=== PATIENT | male | born 1950 | race Caucasian/White ===

== ENCOUNTER 2024-09-05 16:14 | Observation (INO) | payer MEDICARE ==
--- NOTE | 2024-09-05 16:47 | ED ---
Syncope HPI - General Chief Complaint: Neuro Symptoms/Deficit Stated Complaint: chest pain Time Seen by Provider: 09/05/24 16:34 Source: patient, family, RN notes reviewed, old records reviewed Mode of arrival: ambulatory Limitations: no limitations - History of Present Illness Initial Comments: This is a 74-year-old male to the ER for evaluation of chest pain chest pain with a syncopal event. Patient has a syncopal event here in the ER as well as in the waiting room, patient is brought in by family complaining of chest pain, long complex history including multiple episodes of syncope for about 20 years MD Complaint: loss of consciousness -: hour(s) Prodromal Symptoms: chest pain -: minutes(s) Injuries Sustained Associated with Event: None Current Symptoms: lightheaded History: previous syncopal episode Context: at rest Treatments Prior to Arrival: none - Related Data Home Medications Medication Instructions Recorded Confirmed Cholecalciferol [Vitamin D3 (25 50 mcg PO DAILY 09/05/24 09/05/24 Mcg = 1000 Iu)] Cyclobenzaprine [Flexeril] 10 mg PO Q8H PRN 09/05/24 09/05/24 DULoxetine HCL [Cymbalta] 60 mg PO BID 09/05/24 09/05/24 Eszopiclone [Lunesta] 2 mg PO HS PRN 09/05/24 09/05/24 Lactose-Reduced Food [Ensure Plus 237 ml PO DAILY 09/05/24 09/05/24 High Protein] Pantoprazole Sodium [Protonix] 20 mg PO DAILY 09/05/24 09/05/24 Pramipexole [Mirapex] 1 mg PO BID 09/05/24 09/05/24 Prednisolone Acetate/Pf 1 drop BOTH EYES TID 09/05/24 09/05/24 [Prednisolone Acet 1% Eye Drop] Pregabalin [Lyrica] 150 mg PO BID 09/05/24 09/05/24 Rivaroxaban [Xarelto] 20 mg PO DIRECTED 09/05/24 09/05/24 Solifenacin Succinate [Vesicare] 10 mg PO DAILY 09/05/24 09/05/24 clonazePAM [KlonoPIN] 1 mg PO DAILY PRN 09/05/24 09/05/24 traZODone HCL [Desyrel] 50 mg PO HS PRN 09/05/24 09/05/24 Previous Rx's Medication Instructions Recorded Losartan [Cozaar] 25 mg PO HS 30 Days #30 tab 09/07/24 Allergies Allergy/AdvReac Type Severity Reaction Status Date / Time NSAIDS (Non-Steroidal AdvReac Unknown Verified 09/05/24 18:05 Anti-Inflamma Review of Systems ROS Statement: Those systems with pertinent positive or pertinent negative responses have been documented in the HPI. ROS Other: All systems not noted in ROS Statement are negative. 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 Absent: scleral icterus, conjunctival injection, periorbital swelling ENT exam: Present: normal exam, mucous membranes moist Neck exam: Present: normal inspection. Absent: tenderness, meningismus, lymphadenopathy Respiratory exam: Present: normal lung sounds bilaterally. Absent: respiratory distress, wheezes, rales, rhonchi, stridor Cardiovascular Exam: Present: regular rate, normal rhythm, normal heart sounds. Absent: systolic murmur, diastolic murmur, rubs, gallop, clicks GI/Abdominal exam: Present: soft, normal bowel sounds. Absent: distended, tenderness, guarding, rebound, rigid Extremities exam: Present: normal inspection, full ROM, normal capillary refill. Absent: tenderness, pedal edema, joint swelling, calf tenderness Back exam: Present: normal inspection Neurological exam: Present: alert, oriented X3, CN II-XII intact Psychiatric exam: Present: normal affect, normal mood Skin exam: Present: warm, dry, intact, normal color. Absent: rash Course Vital Signs 09/05/24 09/05/24 09/05/24 16:22 18:35 20:09 Temperature 97.6 F 97.7 F Pulse Rate 87 74 76 Respiratory 18 18 16 Rate Blood Pressure 123/78 124/91 132/85 Blood Pressure [Right Arm Sitting] Blood Pressure [Right Arm Standing] Blood Pressure [Right Arm Supine] O2 Sat by Pulse 98 96 97 Oximetry 09/05/24 09/06/24 09/06/24 22:00 00:00 04:35 Temperature 98.0 F Pulse Rate 68 69 63 Respiratory 16 17 15 Rate Blood Pressure 132/76 127/74 132/78 Blood Pressure [Right Arm Sitting] Blood Pressure [Right Arm Standing] Blood Pressure [Right Arm Supine] O2 Sat by Pulse 95 95 95 Oximetry 09/06/24 09/06/24 09/06/24 06:42 07:48 15:43 Temperature 97.8 F Pulse Rate 75 73 Respiratory 15 16 Rate Blood Pressure 132/77 136/86 Blood Pressure 131/88 [Right Arm Sitting] Blood Pressure 138/99 [Right Arm Standing] Blood Pressure 177/106 [Right Arm Supine] O2 Sat by Pulse 95 95 Oximetry - Reevaluation(s) Reevaluation #1: 09/05/24 17:36 Medical records reviewed Reevaluation #2: 09/05/24 17:36 Patient is still having persistent chest pain here in the ER Reevaluation #3: 09/05/24 17:36 Patient informed of results questions answered Reevaluation #4: Was pt. sent in by a medical professional or institution (, PA, HOME FIRE ALARM INSTALLER, urgent care, hospital, or [place] [facility] [place] facility...) When possible be specific @ -no Did you speak to anyone other than the patient for history (EMS, parent, family, police, friend...)? What history was obtained from this source @ -no Did you review nursing and triage notes (agree or disagree)? Why? @ -agree Are old charts reviewed (outside hosp., previous admission, EMS record, old EKG, old radiological studies, urgent care reports/EKG's, [place] health [facility] facility records)? Report findings @ -yes Differential Diagnosis (chest pain, altered mental status, abdominal pain women, abdominal pain men, vaginal bleeding, weakness, fever, dyspnea, syncope, headache, dizziness, GI bleed, back pain, seizure, CVA, palpatations, mental health, musculoskeletal)? @ -prior EKG interpreted by me (3pts min.). @ -yes X-rays interpreted by me (1pt min.). @ -yes negative for acute disease CT interpreted by me (1pt min.). @ -no U/S interpreted by me (1pt. min.). @ -no What testing was considered but not performed or refused? (CT, X-rays, U/S, labs)? Why? @ -none What meds were considered but not given or refused? Why? @ -none Did you discuss the management of the patient with other professionals (prof norwood i.e. , PA, HOME FIRE ALARM INSTALLER, lab, RT, psych nurse, social work instructor, suggestion clerk, teacher, civil preparedness officer, case assistant)? Give summary @ -no Was smoking cessation discussed for >3mins.? @ -no Was critical care preformed (if so, how long)? @ -yes31 Were there social determinants of health that impacted care today? How? (Homelessness, low income, unemployed, alcoholism, drug addiction, transportation, low edu. Level, literacy, decrease access to med. care, [facility], rehab)? @ -none Was there de-escalation of care discussed even if they declined (Discuss DNR or withdrawal of care, Hospice)? DNR status @ -no What co-morbidities impacted this encounter? (DM, HTN, Smoking, COPD, CAD, Cancer, CVA, ARF, Chemo, Hep., AIDS, mental health diagnosis, sleep apnea, morbid obesity)? @ -none Was patient admitted / discharged? Hospital course, mention meds given and route, prescriptions, significant lab abnormalities, going to OR and other pertinent info. @ - 74 male to ER for evaluation of syncope complaining of chest pain. Recurrent syncopal event here in the ER x 2 once in the waiting room once in his own room, at this time patient will be admitted for further evaluation and monitoring by cardiology Admitted Undiagnosed new problem with uncertain prognosis? @ -no Drug Therapy requiring intensive monitoring for toxicity (Heparin, Nitro, Insulin, Cardizem)? @ -no Were any procedures done? @ -no Diagnosis/symptom? @ -Chest pain Acute, or Chronic, or Acute on Chronic? @ -Acute Uncomplicated (without systemic symptoms) or Complicated (systemic symptoms)? @ -Complicated Side effects of treatment? @ -no Exacerbation, Progression, or Severe Exacerbation? @ -exacerbation Poses a threat to life extremes of age with chest pain or bodily function? How? (Chest pain, [place], AR, pneumonia, PE, COPD, DKA, ARF, appy, cholecystitis, CVA, Diverticulitis, Homicidal, Suicidal, threat to staff... and all critical care pts) @ -yes Reevaluation #5: Differential Chest Pain: Stable Angina, Unstable Angina, STEMI, NSTEMI Aortic Dissection, Pneumothorax, Musculoskeletal, Esophageal Spasm GERD, Cholecystitis, Pancreatitis, Zoster, this is not meant to be an all-inclusive list. Differential Syncope: Valvular disease, hypertrophic cardiomyopathy, pulmonary embolism, tamponade, tachycardia, bradycardia, AR, hypovolemia, hemorrhage, dissection, anemia, intracranial hemorrhage, seizure, hypoglycemia, carbon monoxide poisoning, this is not meant to be an all-inclusive list. - Consultations Consultation #1: Spoke with [facility] who agrees to admit this patient EKG Findings - EKG Comments: EKG Findings:: EKG is sinus 77 [place] 149 QRS 114 QTc 398 - EKG Results: EKG: interpreted by [facility] Medical Decision Making - Medical Decision Making 74 male to ER for evaluation of syncope complaining of chest pain. Recurrent syncopal event here in the ER x 2 once in the waiting room once in his own room, at this time patient will be admitted for further evaluation and monitoring by cardiology - Lab Data Result diagrams: 09/06/24 05:23 09/07/24 05:19 Lab Results 09/05/24 09/05/24 09/05/24 Range/Units 16:56 16:56 16:56 WBC 7.8 (3.8-10.6) k/uL RBC 4.23 L (4.30-5.90) m/uL Hgb 10.7 L (13.0-17.5) gm/dL Hct 34.0 L (39.0-53.0) % MCV 80.4 (80.0-100.0) fL MCH 25.3 (25.0-35.0) pg MCHC 31.5 (31.0-37.0) g/dL RDW 15.7 H (11.5-15.5) % Plt Count 222 (150-450) k/uL MPV 8.5 Neutrophils % 69 % Lymphocytes % 20 % Monocytes % 6 % Eosinophils % 2 % Basophils % 0 % Neutrophils # 5.3 (1.3-7.7) k/uL Lymphocytes # 1.6 (1.0-4.8) k/uL Monocytes # 0.5 (0-1.0) k/uL Eosinophils # 0.1 (0-0.7) k/uL Basophils # 0.0 (0-0.2) k/uL Hypochromasia Moderate PT 11.1 (10.0-12.5) sec INR 1.0 (<1.2) APTT 23.6 (22.0-30.0) sec D-Dimer 0.53 (<0.60) mg/L FEU Sodium 138 (137-145) mmol/L Potassium 4.5 (3.5-5.1) mmol/L Chloride 109 H (98-107) mmol/L Carbon Dioxide 23 (22-30) mmol/L Anion Gap 6 mmol/L BUN 11 (9-20) mg/dL Creatinine 0.74 (0.66-1.25) mg/dL Est GFR (CKD-EPI)AfAm >90 (>60 ml/min/1.73 sqM) Est GFR (CKD-EPI)NonAf >90 (>60 ml/min/1.73 sqM) Glucose 108 H (74-99) mg/dL Plasma Lactic Acid Joshua (0.7-2.0) mmol/L Calcium 8.6 (8.4-10.2) mg/dL Phosphorus 3.8 (2.5-4.5) mg/dL Magnesium 1.6 (1.6-2.3) mg/dL Total Bilirubin 0.7 (0.2-1.3) mg/dL AST 25 (17-59) U/L ALT 22 (4-49) U/L Alkaline Phosphatase 106 (38-126) U/L Troponin I (0.000-0.034) ng/mL NT-Pro-B Natriuret Pep 98 pg/mL Total Protein 6.9 (6.3-8.2) g/dL Albumin 3.9 (3.5-5.0) g/dL 09/05/24 09/05/24 Range/Units 16:56 16:56 WBC (3.8-10.6) k/uL RBC (4.30-5.90) m/uL Hgb (13.0-17.5) gm/dL Hct (39.0-53.0) % MCV (80.0-100.0) fL MCH (25.0-35.0) pg MCHC (31.0-37.0) g/dL RDW (11.5-15.5) % Plt Count (150-450) k/uL MPV Neutrophils % % Lymphocytes % % Monocytes % % Eosinophils % % Basophils % % Neutrophils # (1.3-7.7) k/uL Lymphocytes # (1.0-4.8) k/uL Monocytes # (0-1.0) k/uL Eosinophils # (0-0.7) k/uL Basophils # (0-0.2) k/uL Hypochromasia PT (10.0-12.5) sec INR (<1.2) APTT (22.0-30.0) sec D-Dimer (<0.60) mg/L FEU Sodium (137-145) mmol/L Potassium (3.5-5.1) mmol/L Chloride (98-107) mmol/L Carbon Dioxide (22-30) mmol/L Anion Gap mmol/L BUN (9-20) mg/dL Creatinine (0.66-1.25) mg/dL Est GFR (CKD-EPI)AfAm (>60 ml/min/1.73 sqM) Est GFR (CKD-EPI)NonAf (>60 ml/min/1.73 sqM) Glucose (74-99) mg/dL Plasma Lactic Acid Joshua 1.1 (0.7-2.0) mmol/L Calcium (8.4-10.2) mg/dL Phosphorus (2.5-4.5) mg/dL Magnesium (1.6-2.3) mg/dL Total Bilirubin (0.2-1.3) mg/dL AST (17-59) U/L ALT (4-49) U/L Alkaline Phosphatase (38-126) U/L Troponin I <0.012 (0.000-0.034) ng/mL NT-Pro-B Natriuret Pep pg/mL Total Protein (6.3-8.2) g/dL Albumin (3.5-5.0) g/dL - EKG Data -: EKG Interpreted by Me - Radiology Data Radiology results: report reviewed (Chest x-ray is negative for acute disease), image reviewed Critical Care Time Critical Care Time: Yes Total Critical Care Time: 31 Disposition Clinical Impression: Chest pain, Syncope Disposition: ADMITTED IP TO THIS [facility] Condition: Fair Is patient prescribed a controlled substance at d/c from ED?: No Time of Disposition: 17:35
[2024-09-05 17:05] LABS: Basophils % (A) 0 %; Eosinophils # (A) 0.1 k/uL (0-0.7); Eosinophils % (A) 2 %; HGB 10.7 gm/dL (13.0-17.5); Hypochromasia Moderate; Lymphocytes # (A) 1.6 k/uL (1.0-4.8); Lymphocytes % (A) 20 %; MCH 25.3 pg (25.0-35.0); MCHC 31.5 g/dL (31.0-37.0); MCV 80.4 fL (80.0-100.0); Mean Platelet Volume 8.5; Monocytes # (A) 0.5 k/uL (0-1.0); Monocytes % (A) 6 %; Neutrophils # (A) 5.3 k/uL (1.3-7.7); Neutrophils % (A) 69 %; Platelet Count 222 k/uL (150-450); RBC 4.23 m/uL (4.30-5.90); RDW 15.7 % (11.5-15.5); WBC 7.8 k/uL (3.8-10.6)
[2024-09-05] MEDS: MORPHINE SULFATE 4 MG/ML SYRINGE IV STA (17:07)
[2024-09-05] MEDS: ONDANSETRON 4 MG/2 ML VIAL IVP STA (17:08)
[2024-09-05] MEDS: SODIUM CHLORIDE 0.9% 1,000 ML IV STA (17:08)
--- NOTE | 2024-09-05 17:19 | XR ---
EXAMINATION TYPE: XR chest 1V portable DATE OF EXAM: 09/05/2024 Comparison: None Clinical History: 74-year-old male with chest pain Findings: Heart is upper limits of normal in size. Mild diffuse interstitial density. Left anterior chest wall pacer generator with right atrial and ventricular leads. No consolidation or pleural effusion. Impression: Borderline heart size and interstitial density. Consider etiologies such as mild pulmonary vascular c ongestion versus bronchitis or asthma. [facility], , 09/05/2024 5:16 PM
[2024-09-05 17:23] LABS: Partial Thromboplastin Time 23.6 sec (22.0-30.0); Prothrombin Time 11.1 sec (10.0-12.5)
[2024-09-05 17:28] LABS: ALT 22 U/L (4-49); AST 25 U/L (17-59); African American GFR (CKD) >90 (>60 ml/min/1.73 sqM); Albumin 3.9 g/dL (3.5-5.0); Alkaline Phosphatase 106 U/L (38-126); Anion Gap 6 mmol/L; Blood Urea Nitrogen 11 mg/dL (9-20); Calcium 8.6 mg/dL (8.4-10.2); Carbon Dioxide 23 mmol/L (22-30); Chloride 109 mmol/L (98-107); Glucose 108 mg/dL (74-99); Magnesium 1.6 mg/dL (1.6-2.3); Non-African American GFR(CKD) >90 (>60 ml/min/1.73 sqM); Phosphorus 3.8 mg/dL (2.5-4.5); Potassium 4.5 mmol/L (3.5-5.1); Sodium 138 mmol/L (137-145); Total Bilirubin 0.7 mg/dL (0.2-1.3); Total Protein 6.9 g/dL (6.3-8.2)
[2024-09-05 17:34] LABS: NT-Pro-B-Type Natriuretic Pept 98 pg/mL
[2024-09-05] MEDS ORDERED: NALOXONE 0.4 MG/ML 1 ML VIAL IV PRN (17:34)
[2024-09-05] MEDS ORDERED: ONDANSETRON 4 MG/2 ML VIAL IVP PRN (17:34)
[2024-09-05] MEDS: SODIUM CHLORIDE 0.9% 1,000 ML IV SCH (18:31)
[2024-09-05] MEDS: MORPHINE SULFATE 4 MG/ML SYRINGE IV PRN (20:58)
[2024-09-06] MEDS ORDERED: traZODone HCL 50 MG TAB PO PRN (08:13)
[2024-09-06] MEDS ORDERED: HYDROcodone/APAP 5-325MG 1 EACH TAB PO PRN (08:21)
--- NOTE | 2024-09-06 08:45 | P.HPIM ---
History of Present Illness H&P Date: 09/05/24 Chief Complaint: Chest pain 74-year-old male to the ER for evaluation of chest pain chest pain with a syncopal event. Patient has a syncopal event here in the ER as well as in the waiting room, patient is brought in by family complaining of chest pain, long complex history including multiple episodes of syncope for about 20 years; patient is a vague historian; reports he has been having chest pain for past few days; today he had a couple episodes of syncope associated with chest pain and was convinced by the family to come to the ER for further evaluation Recurrent syncopal event here in the ER x 2 once in the waiting room once in his own room, at this time patient will be admitted for further evaluation and monitoring by cardiology Blood work completed in ED reveals a WBC of 7.8, hemoglobin of 10.7 and platelet count of 222, sodium 138, potassium 4.5, BUNs/creatinine of 11/0.74 and blood glucose of 108, lactic acid of 1.1 Chest x-ray is showing mild pulmonary vascular congestion versus bronchitis or asthma. Borderline heart size and interstitial density EKG Findings:: EKG is sinus 77 [place] 149 QRS 114 QTc 398 Review of Systems REVIEW OF SYSTEMS: CONSTITUTIONAL: No fever, no malaise, no fatigue. HEENT: No recent visual problems or hearing problems. Denied any sore throat. CARDIOVASCULAR: No chest pain, orthopnea, PND, no palpitations, no syncope. PULMONARY: No shortness of breath, no cough, no hemoptysis. GASTROINTESTINAL: No diarrhea, no nausea, no vomiting, no abdominal pain. NEUROLOGICAL: No headaches, no weakness, no numbness. HEMATOLOGICAL: Denies any bleeding or petechiae. GENITOURINARY: Denies any burning micturition, frequency, or urgency. MUSCULOSKELETAL/RHEUMATOLOGICAL: Denies any joint pain, swelling, or any muscle pain. ENDOCRINE: Denies any polyuria or polydipsia. The rest of the 14-point review of systems is negative. 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 Past Surgical History: Pacemaker Smoking Status: Never smoker Past Alcohol Use History: None Reported Past Drug Use History: None Reported Medications and Allergies Home Medications Medication Instructions Recorded Confirmed Type Cholecalciferol [Vitamin D3 (25 50 mcg PO DAILY 09/05/24 09/05/24 History Mcg = 1000 Iu)] Cyclobenzaprine [Flexeril] 10 mg PO Q8H PRN 09/05/24 09/05/24 History DULoxetine HCL [Cymbalta] 60 mg PO BID 09/05/24 09/05/24 History Eszopiclone [Lunesta] 2 mg PO HS PRN 09/05/24 09/05/24 History Lactose-Reduced Food [Ensure Plus 237 ml PO DAILY 09/05/24 09/05/24 History High Protein] Pantoprazole Sodium [Protonix] 20 mg PO DAILY 09/05/24 09/05/24 History Pramipexole [Mirapex] 1 mg PO BID 09/05/24 09/05/24 History Prednisolone Acetate/Pf 1 drop BOTH EYES TID 09/05/24 09/05/24 History [Prednisolone Acet 1% Eye Drop] Pregabalin [Lyrica] 150 mg PO BID 09/05/24 09/05/24 History Rivaroxaban [Xarelto] 20 mg PO DIRECTED 09/05/24 09/05/24 History Solifenacin Succinate [Vesicare] 10 mg PO DAILY 09/05/24 09/05/24 History clonazePAM [KlonoPIN] 1 mg PO DAILY PRN 09/05/24 09/05/24 History traZODone HCL [Desyrel] 50 mg PO HS PRN 09/05/24 09/05/24 History Allergies Allergy/AdvReac Type Severity Reaction Status Date / Time NSAIDS (Non-Steroidal AdvReac Unknown Verified 09/05/24 18:05 Anti-Inflamma Physical Exam Vitals: Vital Signs Temp Pulse Resp BP Pulse Ox 09/05/24 18:35 74 18 124/91 96 09/05/24 16:22 97.6 F 87 18 123/78 98 Intake and Output 09/05/24 09/05/24 09/05/24 06:59 14:59 22:59 Other: Weight 72.575 kg General appearance: alert, in no apparent distress Head exam: Present: atraumatic, normocephalic, normal inspection Eye exam: Present: normal appearance, PERRL, EOMI. Absent: scleral icterus, conjunctival injection, periorbital swelling ENT exam: Present: normal exam, mucous membranes moist Neck exam: Present: normal inspection. Absent: tenderness, meningismus, lymphadenopathy Respiratory exam: Present: normal lung sounds bilaterally. Absent: respiratory distress, wheezes, rales, rhonchi, stridor Cardiovascular Exam: Present: regular rate, normal rhythm, normal heart sounds. Absent: systolic murmur, diastolic murmur, rubs, gallop, clicks GI/Abdominal exam: Present: soft, normal bowel sounds. Absent: distended, tenderness, guarding, rebound, rigid Extremities exam: Present: normal inspection, full ROM, normal capillary refill. Absent: tenderness, pedal edema, joint swelling, calf tenderness Back exam: Present: normal inspection Neurological exam: Present: alert, oriented X3, CN II-XII intact Psychiatric exam: Present: normal affect, normal mood Skin exam: Present: warm, dry, intact, normal color. Absent: rash Results CBC & Chem 7: 09/05/24 16:56 09/05/24 16:56 Labs: Abnormal Lab Results - Last 24 Hours (Table) 09/05/24 09/05/24 Range/Units 16:56 16:56 RBC 4.23 L (4.30-5.90) m/uL Hgb 10.7 L (13.0-17.5) gm/dL Hct 34.0 L (39.0-53.0) % RDW 15.7 H (11.5-15.5) % Chloride 109 H (98-107) mmol/L Glucose 108 H (74-99) mg/dL Assessment and Plan Assessment: 1. Chest pain rule out acute coronary syndrome -- Patient reports history of chest pain for past few weeks; patient is rather vague in history; reports chest pains are becoming more frequent and day of ad mission were associated with episodes of syncope so patient decided to come to ER -Patient is admitted to telemetry; monitor EKG and trend troponin -- Recommend 2D echo; cardiology is consulted; get recommendations 2. Recurrent syncope; chronic; reports syncopal episodes for past 20 years 3. Anemia; acute versus chronic; devious records are not available -- Patient is currently on Protonix 20 mg daily; will plan to resume and monitor H&H closely; monitor stool occult blood 4. 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 Chronic back pain; Cymbalta 60 mg twice daily along with Flexeril 10 mg every 8 hours as needed 6. Vitamin D deficiency; vitamin D 1000 IU daily 7. Peripheral neuropathy/restless leg syndrome; Lyrica 150 mg twice daily, Mirapex 1 mg twice daily 8. Urinary incontinence 9. Sleep disorder/insomnia; Desyrel 50 mg nightly; Lunesta as needed DVT prophylaxis; SCDs/Xarelto CODE STATUS; full code
[2024-09-06 09:21] LABS: Basophils # (A) 0.06 X 10*3/uL (0.00-0.10); Basophils % (A) 0.8 %; Eosinophils # (A) 0.19 X 10*3/uL (0.04-0.35); Eosinophils % (A) 2.6 %; HCT 32.2 % (39.6-50.0); HGB 9.5 g/dL (13.0-17.0); Lymphocytes # (A) 1.95 X 10*3/uL (0.90-5.00); Lymphocytes % (A) 26.9 %; MCH 24.1 pg (27.0-32.0); MCHC 29.5 g/dL (32.0-37.0); MCV 81.5 FL (80.0-97.0); Mean Platelet Volume 10.9 FL (9.5-12.2); Monocytes # (A) 0.75 X 10*3/uL (0.20-1.00); Monocytes % (A) 10.3 %; NRBC Per 100 WBC 0 X 10*3/uL (0.00-0.01); Neutrophils # (A) 4.28 X 10*3/uL (1.80-7.70); Neutrophils % (A) 59.1 %; Platelet Count 218 X 10*3/uL (140-440); RBC 3.95 X 10*6/uL (4.40-5.60); RDW 15.9 % (11.5-14.5); WBC 7.25 X 10*3/uL (4.50-10.00)
[2024-09-06 09:34] LABS: ALT 20 U/L (10-49); AST 23 U/L (14-35); Albumin 3.7 g/dL (3.8-4.9); Albumin/Globulin Ratio 1.42 Ratio (1.60-3.17); Alkaline Phosphatase 110 U/L (41-126); BUN/Creat Ratio 12.62 Ratio (12.00-20.00); Blood Urea Nitrogen 10.1 mg/dL (9.0-27.0); Calcium 8.4 mg/dL (8.7-10.3); Carbon Dioxide 24.4 mmol/L (21.6-31.8); Chloride 106 mmol/L (96-109); Globulin 2.6 g/dL (1.6-3.3); Glucose 104 mg/dL (70-110); Magnesium 1.7 mg/dL (1.5-2.4); Phosphorus 4.2 mg/dL (2.4-5.1); Potassium 4.5 mmol/L (3.5-5.5); Sodium 140 mmol/L (135-145); Total Bilirubin 0.5 mg/dL (0.3-1.2); Total Protein 6.3 g/dL (6.2-8.2)
[2024-09-06] MEDS: PREGABALIN 75 MG CAP PO SCH (09:51)
[2024-09-06] MEDS: PRAMIPEXOLE 1 MG TAB PO SCH (09:52)
[2024-09-06] MEDS: TROSPIUM CHLORIDE 20 MG TABLET PO SCH (09:52)
[2024-09-06] MEDS: PANTOPRAZOLE 40 MG TABLET PO SCH (09:52)
[2024-09-06] MEDS: LORATADINE 10 MG TAB PO STA (09:52)
[2024-09-06] MEDS: FAMOTIDINE 20 MG TAB PO STA (09:52)
[2024-09-06] MEDS: DULoxetine HCL 60 MG CAPSULE.DR PO SCH (09:52)
[2024-09-06] MEDS: RIVAROXABAN 20 MG TAB PO SCH (09:52)
[2024-09-06] MEDS: prednisoLONE ACETATE 1% OPHTH DROPS 5 ML BTL BOTH EYES SCH (13:40)
--- NOTE | 2024-09-06 14:38 | P.CRDCN ---
History of Present Illness Consult date: 09/06/24 Consult reason: chest pain History of present illness: The patient is a 74-year-old male who presented to the emergency room with chest discomfort. ACS workup overall was unremarkable. Patient was poor historian at time of arrival in the emergency room and they state he has been having recurrent syncope, which is chronic for the patient. This was witnessed in the emergency room. Patient was interviewed and examined resting comfortably. Patient states he had a coronary angiogram within the last year and he has no coronary artery disease. He also had his pacemaker implanted in [place], with a subsequent generator change. He follows with Dr. Alas at [facility]. DIAGNOSTICS: EKG initially showed sinus rhythm with IVCD Second EKG shows atrial paced rhythm Chest x-ray shows mild pulmonary vascular congestion versus bronchitis/asthma Lab data: WBC 7.2, hemoglobin 9.5, hematocrit 32.2, platelet 218, sodium 140, potassium 4.5, BUN 10, creatinine 0.8, magnesium 1.7, AST 23, ALT 20, troponins negative x 3, BNP 98 REVIEW OF SYSTEMS: No fever or chills. No cough or expectoration. No diaphoresis. Patient denies headache, dizziness, blurred vision, double vision. Patient denies any stomach discomfort. No nausea, vomiting. No hematochezia. No hematemesis. Denies any black stools or blood in his stools. Denies dysuria or hematuria. No muscle weakness or numbness. Positive for shortness of breath. Negative for any current chest pain PHYSICAL EXAMINATION: This is a 74-year-old male in no apparent distress at the time of my examination. HEENT: Head is atraumatic, normocephalic. Pupils are equal, round. There is no j ugular venous distention. No carotid bruit is heard. CHEST EXAMINATION: Lungs are clear to auscultation. No chest wall tenderness is noted on palpation or with deep breathing. HEART EXAMINATION: Heart regular rate and rhythm. S1, S2 heard. No murmurs, gallops or rub. ABDOMEN: Soft, nontender. Bowel sounds are heard. No organomegaly noted. EXTREMITIES: 2+ peripheral pulses with no evidence of peripheral edema and no calf tenderness noted. NEUROLOGIC EXAMINATION: Patient is awake, alert and oriented x3. FINAL ASSESSMENT AND PLAN: Chest discomfort Anemia Recurrent syncope History of permanent pacemaker History of factor V Leiden, on Xarelto PLAN: Continue anticoagulation Device interrogation Orthostatic blood pressure check Further recommendations to be based upon clinical course I am dictating on behalf of Dr Eduard Munoz's history/physical and assessment/plan. 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 Past Surgical History: Pacemaker Smoking Status: Never smoker Past Alcohol Use History: None Reported Past Drug Use History: None Reported Medications and Allergies Home Medications Medication Instructions Recorded Confirmed Type Cholecalciferol [Vitamin D3 (25 50 mcg PO DAILY 09/05/24 09/05/24 History Mcg = 1000 Iu)] Cyclobenzaprine [Flexeril] 10 mg PO Q8H PRN 09/05/24 09/05/24 History DULoxetine HCL [Cymbalta] 60 mg PO BID 09/05/24 09/05/24 History Eszopiclone [Lunesta] 2 mg PO HS PRN 09/05/24 09/05/24 History Lactose-Reduced Food [Ensure Plus 237 ml PO DAILY 09/05/24 09/05/24 History High Protein] Pantoprazole Sodium [Protonix] 20 mg PO DAILY 09/05/24 09/05/24 History Pramipexole [Mirapex] 1 mg PO BID 09/05/24 09/05/24 History Prednisolone Acetate/Pf 1 drop BOTH EYES TID 09/05/24 09/05/24 History [Prednisolone Acet 1% Eye Drop] Pregabalin [Lyrica] 150 mg PO BID 09/05/24 09/05/24 History Rivaroxaban [Xarelto] 20 mg PO DIRECTED 09/05/24 09/05/24 History Solifenacin Succinate [Vesicare] 10 mg PO DAILY 09/05/24 09/05/24 History clonazePAM [KlonoPIN] 1 mg PO DAILY PRN 09/05/24 09/05/24 History traZODone HCL [Desyrel] 50 mg PO HS PRN 09/05/24 09/05/24 History Allergies Allergy/AdvReac Type Severity Reaction Status Date / Time NSAIDS (Non-Steroidal AdvReac Unknown Verified 09/05/24 18:05 Anti-Inflamma Physical Exam Vitals: Vital Signs Temp Pulse Resp BP Pulse Ox 09/06/24 07:48 73 16 136/86 95 09/06/24 06:42 97.8 F 75 15 132/77 95 09/06/24 04:35 98.0 F 63 15 132/78 95 09/06/24 00:00 69 17 127/74 95 09/05/24 22:00 68 16 132/76 95 09/05/24 20:09 97.7 F 76 16 132/85 97 09/05/24 18:35 74 18 124/91 96 09/05/24 16:22 97.6 F 87 18 123/78 98 Intake and Output 09/05/24 09/06/24 09/06/24 22:59 06:59 14:59 Output Total 1000 Balance -1000 Output: Urine 1000 Other: Weight 72.575 kg Results 09/06/24 05:23 09/06/24 05:23 Cardiac Enzymes 09/05/24 09/05/24 09/05/24 Range/Units 16:56 16:56 20:24 AST 25 (17-59) U/L Troponin I <0.012 <0.012 (0.000-0.034) ng/mL 09/05/24 09/06/24 Range/Units 23:43 05:23 AST 23 (17-59) U/L Troponin I <0.012 (0.000-0.034) ng/mL Coagulation 09/05/24 Range/Units 16:56 PT 11.1 (10.0-12.5) sec APTT 23.6 (22.0-30.0) sec CBC 09/05/24 09/06/24 Range/Units 16:56 05:23 WBC 7.8 7.25 (3.8-10.6) k/uL RBC 4.23 L 3.95 L (4.30-5.90) m/uL Hgb 10.7 L 9.5 L (13.0-17.5) gm/dL Hct 34.0 L 32.2 L (39.0-53.0) % Plt Count 222 218 (150-450) k/uL Comprehensive Metabolic Panel 09/05/24 09/06/24 Range/Units 16:56 05:23 Sodium 138 140 (137-145) mmol/L Potassium 4.5 4.5 (3.5-5.1) mmol/L Chloride 109 H 106 (98-107) mmol/L Carbon Dioxide 23 24.4 (22-30) mmol/L BUN 11 10.1 (9-20) mg/dL Creatinine 0.74 0.8 (0.66-1.25) mg/dL Glucose 108 H 104 (74-99) mg/dL Calcium 8.6 8.4 L (8.4-10.2) mg/dL AST 25 23 (17-59) U/L ALT 22 20 (4-49) U/L Alkaline Phosphatase 106 110 (38-126) U/L Total Protein 6.9 6.3 (6.3-8.2) g/dL Albumin 3.9 3.7 L (3.5-5.0) g/dL Current Medications Generic Name Dose Route Start Last Admin Trade Name Freq PRN Reason Stop Dose Admin Hydrocodone Bitart/Acetaminophen 1 each 09/06/24 08:21 Hydrocodone/Apap 5-325mg 1 Each Tab PO Q6HR PRN Pain Diphenhydramine HCl 25 mg 09/06/24 08:58 Diphenhydramine 50 Mg/Ml 1 Ml Vial IVP Q6HR PRN Allergy Symptoms Duloxetine HCl 60 mg 09/06/24 09:00 09/06/24 09:52 Duloxetine Hcl 60 Mg Capsule.Dr PO 60 mg BID SALLY Administration Sodium Chloride 1,000 mls @ 75 mls/hr 09/05/24 17:45 09/06/24 07:46 Saline 0.9% IV 75 mls/hr .[id number] SALLY Administration Morphine Sulfate 4 mg 09/05/24 17:34 09/06/24 08:59 Morphine Sulfate 4 Mg/Ml Syringe IV 4 mg Q4HR PRN Administration Severe Pain (Scale 7 to 10) Naloxone HCl 0.2 mg 09/05/24 17:34 Naloxone 0.4 Mg/Ml 1 Ml Vial IV Q2M PRN Opioid Reversal Ondansetron HCl 4 mg 09/05/24 17:34 Ondansetron 4 Mg/2 Ml Vial IVP Q8HR PRN Nausea And Vomiting Pantoprazole Sodium 40 mg 09/06/24 09:00 09/06/24 09:52 Pantoprazole 40 Mg Tablet PO 40 mg DAILY SALLY Administration Pramipexole Dihydrochloride 1 mg 09/06/24 09:00 09/06/24 09:52 Pramipexole 1 Mg Tab PO 1 mg BID SALLY Administration Prednisolone Acetate 1 drops 09/06/24 09:00 09/06/24 13:40 Prednisolone Acetate 1% Ophth Drops 5 Ml Btl BOTH EYES 1 drops TID SALLY Administration Pregabalin 150 mg 09/06/24 09:00 09/06/24 09:51 Pregabalin 75 Mg Cap PO 150 mg BID SALLY Administration Rivaroxaban 20 mg 09/06/24 09:00 09/06/24 09:52 Rivaroxaban 20 Mg Tab PO 20 mg DAILY SALLY Administration Protocol Trazodone HCl 50 mg 09/06/24 08:13 Trazodone Hcl 50 Mg Tab PO HS PRN Insomnia Trospium 20 mg 09/06/24 09:00 09/06/24 09:52 Trospium Chloride 20 Mg Tablet PO 20 mg BID SALLY Administration Intake and Output 09/05/24 09/06/24 09/06/24 22:59 06:59 14:59 Output Total 1000 Balance -1000 Output: Urine 1000 Other: Weight 72.575 kg 09/06/24 05:23 09/06/24 05:23
[2024-09-06] MEDS: diphenhydrAMINE 50 MG/ML 1 ML VIAL IVP PRN (18:53)
[2024-09-06 20:08] LABS: Glucose,Whole Blood 86 mg/dL (70-110)
[2024-09-07 05:53] LABS: Glucose,Whole Blood 98 mg/dL (70-110)
[2024-09-07 08:13] VITALS: TEMP 97.9
--- NOTE | 2024-09-07 08:22 | P.EPCON ---
Electrophysiology Consult - EP Consult Electrophysiology Consult: Syncope/presyncope Supine hypertension with orthostatic drop in the morning/OHS Suggest Nighttime/bedtime dose of angiotensin receptor josee, losartan 25 mg p.o. daily to begin with Mitigate the a.m. drop in blood pressure once sitting and standing
[2024-09-07 09:31] LABS: BUN/Creat Ratio 10.57 Ratio (12.00-20.00); Blood Urea Nitrogen 7.4 mg/dL (9.0-27.0); Calcium 8.5 mg/dL (8.7-10.3); Chloride 105 mmol/L (96-109); Glucose 104 mg/dL (70-110); Potassium 4.4 mmol/L (3.5-5.5); Sodium 138 mmol/L (135-145)
--- NOTE | 2024-09-07 11:59 | P.PN ---
Subjective Progress Note Date: 09/07/24 This is Uday Blount NP, I'm dictating on behalf of Dr. Munoz's H&P and A&P. Patient was interviewed and examined. Patient is a pleasant 74-year-old male who presented to the hospital with complaints of chest pain and syncope. Patient reports that he is feeling okay today. He is denying chest pain, heart palpitations, dizziness. Patient does report that he continues to experience lightheadedness when he gets up out of bed. Orthostatic vital signs were checked yesterday and were positive. Patient was noted to be hypertensive this morning while lying in the bed. GENERAL: Well-appearing, well-nourished and in no acute distress. NECK: Supple without JVD or thyromegaly. LUNGS: Breath sounds clear to auscultation bilaterally. Respiration equal and unlabored. No wheezes, rales or rhonchi. HEART: Regular rate and rhythm without murmurs, rubs or gallops. S1 and S2 heard. EXTREMITIES: Normal range of motion, no edema. No clubbing or cyanosis. Peripheral pulses intact and strong. VITALS: Blood pressure 97.9, pulse 102, respirations 15, blood pressure 150/90, O2 saturation 97% on room air Orthostatic vitals: Supine-177/106, sitting- 131/88, standing-138/99 TELEMETRY: Sinus mechanism LABS: Sodium 138, potassium 4.4, BUN 7.4, creatinine 0.7, calcium 8.5 IMPRESSION: 1. Chest discomfort 2. Anemia 3. Recurrent syncope, positive orthostatic vital signs 4. History of permanent pacemaker 5. History of factor V Leiden, on Xarelto 6. Orthostatic hypotension syndrome 7. Supine hypertension PLAN: Start losartan 25 mg at bedtime. Only give this around bedtime, specifically to treat the supine hypertension, which will decrease the patient's orthostasis in the morning. Continue anticoagulation. Further recommendations based on patient's clinical course. Objective - Vital Signs Vital signs: Vital Signs Temp 97.9 F 09/07/24 07:00 Pulse 102 H 09/07/24 07:00 Resp 15 09/07/24 07:00 BP 150/90 09/07/24 07:00 Pulse Ox 97 09/07/24 07:00 FiO2 Intake & Output 09/06/24 09/07/2424 18:59 06:59 18:59 Weight 72.575 kg Other: # Voids 2 - Labs CBC & Chem 7: 09/06/24 05:23 09/07/24 05:19 Labs: Abnormal Lab Results - Last 24 Hours (Table) 09/07/24 Range/Units 05:19 BUN 7.4 L (9.0-27.0) mg/dL BUN/Creatinine Ratio 10.57 L (12.00-20.00) Ratio Calcium 8.5 L (8.7-10.3) mg/dL
[2024-09-07 12:24] LABS: Glucose,Whole Blood 123 mg/dL (70-110)
[2024-09-07 15:30] VITALS: BP 153/80; PULSE 83; RESP 16
--- NOTE | 2024-09-07 16:58 | P.PN ---
Subjective Progress Note Date: 09/06/24 74-year-old male to the ER for evaluation of chest pain chest pain with a syncopal event. Patient has a syncopal event here in the ER as well as in the waiting room, patient is brought in by family complaining of chest pain, long complex history including multiple episodes of syncope for about 20 years; patient is a vague historian; reports he has been having chest pain for past few days; today he had a couple episodes of syncope associated with chest pain and was convinced by the family to come to the ER for further evaluation Recurrent syncopal event here in the ER x 2 once in the waiting room once in his own room, at this time patient will be admitted for further evaluation and monitoring by cardiology Blood work completed in ED reveals a WBC of 7.8, hemoglobin of 10.7 and platelet count of 222, sodium 138, potassium 4.5, BUNs/creatinine of 11/0.74 and blood glucose of 108, lactic acid of 1.1 Chest x-ray is showing mild pulmonary vascular congestion versus bronchitis or asthma. Borderline heart size and interstitial density EKG Findings:: EKG is sinus 77 KS 149 QRS 114 QTc 398 Objective - Vital Signs Vital signs: Vital Signs Temp 97.8 F 09/06/24 06:42 Pulse 73 09/06/24 07:48 Resp 16 09/06/24 07:48 BP 136/86 09/06/24 07:48 Pulse Ox 95 09/06/24 07:48 FiO2 Intake & Output 09/05/24 09/06/24 09/06/24 18:59 06:59 18:59 Output Total 1000 Balance -1000 Weight 72.575 kg Output: Urine 1000 - Exam Head exam: Present: atraumatic, normocephalic, normal inspection Eye exam: Present: normal appearance, PERRL, EOMI. Absent: scleral icterus, conjunctival injection, periorbital swelling ENT exam: Present: normal exam, mucous membranes moist Neck exam: Present: normal inspection. Absent: tenderness, meningismus, lymphadenopathy Respiratory exam: Present: normal lung sounds bilaterally. Absent: respiratory distress, wheezes, rales, rhonchi, stridor Cardiovascular Exam: Present: regular rate, normal rhythm, normal heart sounds. Absent: systolic murmur, diastolic murmur, rubs, gallop, clicks GI/Abdominal exam: Present: soft, normal bowel sounds. Absent: distended, tenderness, guarding, rebound, rigid Extremities exam: Present: normal inspection, full ROM, normal capillary refill. Absent: tenderness, pedal edema, joint swelling, calf tenderness Back exam: Present: normal inspection Neurological exam: Present: alert, oriented X3, CN II-XII intact Psychiatric exam: Present: normal affect, normal mood Skin exam: Present: warm, dry, intact, normal color. Absent: rash - Labs CBC & Chem 7: 09/06/24 05:23 09/07/24 05:19 Labs: Abnormal Lab Results - Last 24 Hours (Table) 09/05/24 09/05/24 Range/Units 16:56 16:56 RBC 4.23 L (4.30-5.90) m/uL Hgb 10.7 L (13.0-17.5) gm/dL Hct 34.0 L (39.0-53.0) % RDW 15.7 H (11.5-15.5) % Chloride 109 H (98-107) mmol/L Glucose 108 H (74-99) mg/dL Assessment and Plan Assessment: 1. Chest pain rule out acute coronary syndrome -- Patient reports history of chest pain for past few weeks; patient is rather vague in history; reports chest pains are becoming more frequent and day of admission were associated with episodes of syncope so patient decided to come to ER -Patient is admitted to telemetry; monitor EKG and trend troponin -- Recommend 2D echo; cardiology is consulted; get recommendations 2. Recurrent syncope; chronic; reports syncopal episodes for past 20 years 3. Anemia; acute versus chronic; devious records are not available -- Patient is currently on Protonix 20 mg daily; will plan to resume and monitor H&H closely; monitor stool occult blood 4. 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 Chronic back pain; Cymbalta 60 mg twice daily along with Flexeril 10 mg every 8 hours as needed 6. Vitamin D deficiency; vitamin D 1000 IU daily 7. Peripheral neuropathy/restless leg syndrome; Lyrica 150 mg twice daily, Mirapex 1 mg twice daily 8. Urinary incontinence 9. Sleep disorder/insomnia; Desyrel 50 mg nightly; Lunesta as needed DVT prophylaxis; SCDs/Xarelto CODE STATUS; full code
[2024-09-07] MEDS ORDERED: LOSARTAN 25 MG TAB PO SCH (21:00)
== END 2024-09-07 17:30 | disposition home or self-care (01) ==
LOC: EC 16:14 → 6NMEDSUR 17:34
PROVIDERS: ADMIT Hospitalist; ATTEND Hospitalist
DX: R07.89 Other chest pain (principal); I95.1 Orthostatic hypotension; D64.9 Anemia, unspecified; I10 Essential (primary) hypertension; D68.51 Activated protein C resistance; U09.9 Post COVID-19 condition, unspecified; E55.9 Vitamin D deficiency, unspecified; G25.81 Restless legs syndrome; R32 Unspecified urinary incontinence; G47.00 Insomnia, unspecified; G62.9 Polyneuropathy, unspecified; Z79.01 Long term (current) use of anticoagulants; Z79.899 Other long term (current) drug therapy; Z88.6 Allergy status to analgesic agent; Z95.0 Presence of cardiac pacemaker
CPT/HCPCS: 96376 ×4; 96361 ×2; 96375 ×2; 96374; 99291; 36415; 93005; 85379; 83880; 80053 ×2; 80048; 83605; 83735 ×2; 84100 ×2; 84484; 85025 ×2; 85610; 85730; 71045; G0378 ×3; J2270 ×3; J1200 ×2; J2405

== ENCOUNTER 2024-09-30 23:15 | Emergency (ER) | payer MEDICARE ==
--- NOTE | 2024-10-01 | ED ---
Abdominal Pain HPI - General Chief Complaint: Abdominal Pain Stated Complaint: Abd Pain Time Seen by Provider: 09/30/24 23:58 Source: patient, family, RN notes reviewed Mode of arrival: wheelchair Limitations: no limitations - History of Present Illness Initial Comments: 74-year-old male presenting to the ER with chief complaint of urinary retention x 3 hours. Reports over the past day he is having dysuria and feels as though he cannot completely empty his bladder. He is also endorsing suprapubic pain and diffuse bodyaches. Denies fevers, nausea, vomiting. He is on Xarelto. - Related Data Home Medications Medication Instructions Recorded Confirmed Cholecalciferol [Vitamin D3 (25 50 mcg PO DAILY 09/05/24 09/05/24 Mcg = 1000 Iu)] Cyclobenzaprine [Flexeril] 10 mg PO Q8H PRN 09/05/24 09/05/24 DULoxetine HCL [Cymbalta] 60 mg PO BID 09/05/24 09/05/24 Eszopiclone [Lunesta] 2 mg PO HS PRN 09/05/24 09/05/24 Lactose-Reduced Food [Ensure Plus 237 ml PO DAILY 09/05/24 09/05/24 High Protein] Pantoprazole Sodium [Protonix] 20 mg PO DAILY 09/05/24 09/05/24 Pramipexole [Mirapex] 1 mg PO BID 09/05/24 09/05/24 Prednisolone Acetate/Pf 1 drop BOTH EYES TID 09/05/24 09/05/24 [Prednisolone Acet 1% Eye Drop] Pregabalin [Lyrica] 150 mg PO BID 09/05/24 09/05/24 Rivaroxaban [Xarelto] 20 mg PO DIRECTED 09/05/24 09/05/24 Solifenacin Succinate [Vesicare] 10 mg PO DAILY 09/05/24 09/05/24 clonazePAM [KlonoPIN] 1 mg PO DAILY PRN 09/05/24 09/05/24 traZODone HCL [Desyrel] 50 mg PO HS PRN 09/05/24 09/05/24 Previous Rx's Medication Instructions Recorded Losartan [Cozaar] 25 mg PO HS 30 Days #30 tab 09/07/24 Allergies Allergy/AdvReac Type Severity Reaction Status Date / Time NSAIDS (Non-Steroidal AdvReac Unknown Verified 09/30/24 23:20 Anti-Inflamma Review of Systems ROS Statement: Those systems with pertinent positive or pertinent negative responses have been documented in the HPI. ROS Other: All systems not noted in ROS Statement are negative. 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 bowel surgery twisted bowel post op bariatric sx. Past Anesthesia/Blood Transfusion Reactions: No Reported Reaction Type of Cardiac Device: Permanent Pacemaker Device Placement Date:: 2005 Past Psychological History: Anxiety, Depression Smoking Status: Never smoker Past Alcohol Use History: None Reported Past Drug Use History: None Reported - Past Family History Father Family Medical History: Unable to Obtain General Exam Limitations: no limitations General appearance: alert, anxious Eye exam: Present: normal appearance, PERRL, EOMI. Absent: scleral icterus, conjunctival injection, periorbital swelling GI/Abdominal exam: Present: soft, normal bowel sounds. Absent: distended, tenderness, guarding, rebound, rigid Neurological exam: Present: alert, oriented X3 Psychiatric exam: Present: normal affect, normal mood Skin exam: Present: warm, dry, intact, normal color. Absent: rash Course Vital Signs 09/30/24 10/01/24 23:16 01:13 Temperature 97.7 F 97.9 F Pulse Rate 77 74 Respiratory 20 19 Rate Blood Pressure 140/84 133/81 O2 Sat by Pulse 98 98 Oximetry Medical Decision Making - Medical Decision Making Was pt. sent in by a medical professional or institution (, PA, PHYSICAL THERAPY ASSISTANT INSTRUCTOR, urgent care, hospital, or shelter...) When possible be specific @ -No Did you speak to anyone other than the patient for history (EMS, parent, family, police, friend...)? What history was obtained from this source @ - supplemented history Did you review nursing and triage notes (agree or disagree)? Why? @ -I reviewed and agree with nursing and triage notes Were old charts reviewed (outside hosp., previous admission, EMS record, old EKG, old radiological studies, urgent care reports/EKG's, shelter records)? Report findings @ -No old charts were reviewed Differential Diagnosis (chest pain, altered mental status, abdominal pain women, abdominal pain men, vaginal bleeding, weakness, fever, dyspnea, syncope, headache, dizziness, GI bleed, back pain, seizure, CVA, palpatations, mental health, musculoskeletal)? @ -Differential Abdominal Pain Men: Urinary retention, appendicitis, cholecystitis, diverticulosis, ischemic bowel, pancreatitis, hepatitis, UTI, gastroenteritis, AAA, incarcerated hernia, bowel obstruction, constipation, inflammatory bowel, hepatitis, peptic ulcer disease, splenic infarction, perforated viscus, testicular torsion, this is not meant to be an all-inclusive list EKG interpreted by me (3pts min.). @ -None X-rays interpreted by me (1pt min.). @ -None done CT interpreted by me (1pt min.). @ -None done U/S interpreted by me (1pt. min.). @ -None done What testing was considered but not performed or refused? (CT, X-rays, U/S, labs)? Why? @ -None What meds were considered but not given or refused? Why? @ -None Did you discuss the management of the patient with other professionals (professionals i.e. , PA, PHYSICAL THERAPY ASSISTANT INSTRUCTOR, lab, RT, psych nurse, case management social worker, manager contracting, teacher, medical corps officer, registered nurse hh case manager)? Give summary @ -No Was smoking cessation discussed for >3mins.? @ -No Was critical care preformed (if so, how long)? @ -No Were there social determinants of health that impacted care today? How? (Homelessness, low income, unemployed, alcoholism, drug addiction, transportation, low edu. Level, literacy, decrease access to med. care, assisted, rehab)? @ -No Was there de-escalation of care discussed even if they declined (Discuss DNR or withdrawal of care, Hospice)? DNR status @ -No What co-morbidities impacted this encounter? (DM, HTN, Smoking, COPD, CAD, Cancer, CVA, ARF, Chemo, Hep., AIDS, mental health diagnosis, sleep apnea, morbid obesity)? @ -None Was patient admitted / discharged? Hospital course, mention meds given and route, prescriptions, significant lab abnormalities, going to OR and other pertinent info. @ -Discharge. This is a 74-year-old male presenting with urinary retention. Vital signs within acceptable limits. Abdomen is soft and nontender. Bladder scan reveals 673 mL. Marcelo catheter was placed and draining properly. Lab work including CBC, CMP, lactic acid unremarkable. Urinalysis reveals 1+ glucose, negative for blood or bacteria. Results discussed with patient. Advised to follow-up with urology for Marcelo removal. Appropriate return parameters discussed, patient and are agreeable to plan. Case was discussed with the ED attending Dr. Lino. Undiagnosed new problem with uncertain prognosis? @ -No Drug Therapy requiring intensive monitoring for toxicity (Heparin, Nitro, Insulin, Cardizem)? @ -No Were any procedures done? @ -No Diagnosis/symptom? @ -Urinary retention Acute, or Chronic, or Acute on Chronic? @ -Acute Uncomplicated (without systemic symptoms) or Complicated (systemic symptoms)? @ -Uncomplicated Side effects of treatment? @ -No Exacerbation, Progression, or Severe Exacerbation? @ -No Poses a threat to life or bodily function? How? (Chest pain, [place], [place], pneumonia, PE, COPD, DKA, ARF, appy, cholecystitis, CVA, Diverticulitis, Homicidal, Suicidal, threat to staff... and all critical care pts) @ -No - Lab Data Result diagrams: 10/01/24 00:04 10/01/24 00:04 Lab Results 10/01/24 10/01/24 10/01/24 Range/Units 00:04 00:04 00:04 WBC 6.8 (3.8-10.6) k/uL RBC 4.16 L (4.30-5.90) m/uL Hgb 10.4 L (13.0-17.5) gm/dL Hct 33.0 L (39.0-53.0) % MCV 79.2 L (80.0-100.0) fL MCH 24.9 L (25.0-35.0) pg MCHC 31.5 (31.0-37.0) g/dL RDW 16.2 H (11.5-15.5) % Plt Count 220 (150-450) k/uL MPV 9.4 Neutrophils % 58 % Lymphocytes % 27 % Monocytes % 8 % Eosinophils % 3 % Basophils % 1 % Neutrophils # 3.9 (1.3-7.7) k/uL Lymphocytes # 1.9 (1.0-4.8) k/uL Monocytes # 0.5 (0-1.0) k/uL Eosinophils # 0.2 (0-0.7) k/uL Basophils # 0.1 (0-0.2) k/uL Hypochromasia Slight Anisocytosis Slight Microcytosis Slight Sodium 138 (137-145) mmol/L Potassium 4.4 (3.5-5.1) mmol/L Chloride 108 H (98-107) mmol/L Carbon Dioxide 20 L (22-30) mmol/L Anion Gap 10 mmol/L BUN 8 L (9-20) mg/dL Creatinine 0.71 (0.66-1.25) mg/dL Est GFR (CKD-EPI)AfAm >90 (>60 ml/min/1.73 sqM) Est GFR (CKD-EPI)NonAf >90 (>60 ml/min/1.73 sqM) Glucose 145 H (74-99) mg/dL Plasma Lactic Acid Joshua 1.6 (0.7-2.0) mmol/L Calcium 8.9 (8.4-10.2) mg/dL Total Bilirubin 0.6 (0.2-1.3) mg/dL AST 24 (17-59) U/L ALT 23 (4-49) U/L Alkaline Phosphatase 113 (38-126) U/L Total Protein 7.1 (6.3-8.2) g/dL Albumin 4.0 (3.5-5.0) g/dL Urine Color Urine Appearance (Clear) Urine pH (5.0-8.0) Ur Specific [place] (1.001-1.035) Urine Protein (Negative) Urine Glucose (UA) (Negative) Urine Ketones (Negative) Urine Blood (Negative) Urine Nitrite (Negative) Urine Bilirubin (Negative) Urine Urobilinogen (<2.0) mg/dL Ur Leukocyte Esterase (Negative) 10/01/24 Range/Units 00:07 WBC (3.8-10.6) k/uL RBC (4.30-5.90) m/uL Hgb (13.0-17.5) gm/dL Hct (39.0-53.0) % MCV (80.0-100.0) fL MCH (25.0-35.0) pg MCHC (31.0-37.0) g/dL RDW (11.5-15.5) % Plt Count (150-450) k/uL MPV Neutrophils % % Lymphocytes % % Monocytes % % Eosinophils % % Basophils % % Neutrophils # (1.3-7.7) k/uL Lymphocytes # (1.0-4.8) k/uL Monocytes # (0-1.0) k/uL Eosinophils # (0-0.7) k/uL Basophils # (0-0.2) k/uL Hypochromasia Anisocytosis Microcytosis Sodium (137-145) mmol/L Potassium (3.5-5.1) mmol/L Chloride (98-107) mmol/L Carbon Dioxide (22-30) mmol/L Anion Gap mmol/L BUN (9-20) mg/dL Creatinine (0.66-1.25) mg/dL Est GFR (CKD-EPI)AfAm (>60 ml/min/1.73 sqM) Est GFR (CKD-EPI)NonAf (>60 ml/min/1.73 sqM) Glucose (74-99) mg/dL Plasma Lactic Acid Joshua (0.7-2.0) mmol/L Calcium (8.4-10.2) mg/dL Total Bilirubin (0.2-1.3) mg/dL AST (17-59) U/L ALT (4-49) U/L Alkaline Phosphatase (38-126) U/L Total Protein (6.3-8.2) g/dL Albumin (3.5-5.0) g/dL Urine Color Colorless Urine Appearance Clear (Clear) Urine pH 5.5 (5.0-8.0) Ur Specific [place] 1.002 (1.001-1.035) Urine Protein Negative (Negative) Urine Glucose (UA) 1+ H (Negative) Urine Ketones Negative (Negative) Urine Blood Negative (Negative) Urine Nitrite Negative (Negative) Urine Bilirubin Negative (Negative) Urine Urobilinogen <2.0 (<2.0) mg/dL Ur Leukocyte Esterase Negative (Negative) Disposition Clinical Impression: Acute urinary retention Disposition: HOME SELF-CARE Condition: Stable Instructions (If sedation given, give patient instructions): Urinary Retention in Men (ED) Additional Instructions: Follow-up with urology in 3 to 5 days for reevaluation. Please return to the Emergency Department if symptoms worsen or any other concerns. Is patient prescribed a controlled substance at d/c from ED?: No Referrals: Jayson Reilly MD [Primary Care Provider] - 1-2 days Darvin Patrick MD [STAFF PHYSICIAN] - 1-2 days Time of Disposition: 01:06
[2024-10-01] MEDS: ONDANSETRON 4 MG/2 ML VIAL IVP STA (00:13)
[2024-10-01] MEDS: SODIUM CHLORIDE 0.9% 1,000 ML IV STA (00:13)
[2024-10-01 00:15] LABS: Anisocytosis Slight; Basophils # (A) 0.1 k/uL (0-0.2); Basophils % (A) 1 %; Eosinophils # (A) 0.2 k/uL (0-0.7); Eosinophils % (A) 3 %; HGB 10.4 gm/dL (13.0-17.5); Hypochromasia Slight; Lymphocytes # (A) 1.9 k/uL (1.0-4.8); Lymphocytes % (A) 27 %; MCH 24.9 pg (25.0-35.0); MCHC 31.5 g/dL (31.0-37.0); MCV 79.2 fL (80.0-100.0); Mean Platelet Volume 9.4; Microcytosis Slight; Monocytes # (A) 0.5 k/uL (0-1.0); Monocytes % (A) 8 %; Neutrophils # (A) 3.9 k/uL (1.3-7.7); Neutrophils % (A) 58 %; Platelet Count 220 k/uL (150-450); RBC 4.16 m/uL (4.30-5.90); RDW 16.2 % (11.5-15.5); WBC 6.8 k/uL (3.8-10.6)
[2024-10-01 00:17] LABS: Appearance,Urine Clear (Clear); Bilirubin,Urine Negative (Negative); Blood,Urine Negative (Negative); Color,Urine Colorless; Glucose,Urine (UA) 1+ (Negative); Ketones,Urine Negative (Negative); Leukocyte Esterase,Urine Negative (Negative); Nitrite,Urine Negative (Negative); PH, Urine 5.5 (5.0-8.0); Protein,Urine Negative (Negative); Specific Gravity,Urine 1.002 (1.001-1.035); Urobilinogen,Urine <2.0 mg/dL (<2.0)
[2024-10-01] MEDS: MORPHINE SULFATE 4 MG/ML SYRINGE IVP STA (00:17)
[2024-10-01] MEDS: HYDROmorphone 1 MG/ML 1 ML SYRINGE IVP STA (00:18)
[2024-10-01 00:28] LABS: ALT 23 U/L (4-49); AST 24 U/L (17-59); African American GFR (CKD) >90 (>60 ml/min/1.73 sqM); Alkaline Phosphatase 113 U/L (38-126); Anion Gap 10 mmol/L; Blood Urea Nitrogen 8 mg/dL (9-20); Calcium 8.9 mg/dL (8.4-10.2); Carbon Dioxide 20 mmol/L (22-30); Chloride 108 mmol/L (98-107); Glucose 145 mg/dL (74-99); Non-African American GFR(CKD) >90 (>60 ml/min/1.73 sqM); Potassium 4.4 mmol/L (3.5-5.1); Sodium 138 mmol/L (137-145); Total Bilirubin 0.6 mg/dL (0.2-1.3); Total Protein 7.1 g/dL (6.3-8.2)
[2024-10-01 01:14] VITALS: BP 133/81; PULSE 74; RESP 19; TEMP 97.9
[2024-10-01] MEDS: HYDROmorphone 0.5 MG/0.5 ML SYRINGE IVP STA (01:18)
== END 2024-10-01 02:08 | disposition home or self-care (01) ==
LOC: EC 23:15
DX: R33.9 Retention of urine, unspecified (principal); Z88.6 Allergy status to analgesic agent
CPT/HCPCS: 36415; 51702; 51798; 80053; 81003; 83605; 85025; 96361; 96374; 96375; 96376; 99284

== ENCOUNTER 2024-10-02 22:44 | Emergency (ER) | payer MEDICARE ==
[2024-10-02 22:48] VITALS: RESP 18
--- NOTE | 2024-10-02 23:21 | ED ---
Male Urogenital HPI - General Chief complaint: Urogenital Stated complaint: back pain Time Seen by Provider: 10/02/24 23:20 Source: patient, family (), RN notes reviewed, old records reviewed Mode of arrival: ambulatory Limitations: no limitations - History of Present Illness Initial comments: 74-year-old male presenting to the ER with a chief complaint of abdominal pain. Patient was seen here 2 days prior and diagnosed with urinary retention. Gerber thomas had Marcelo catheter placed. He states around 6 PM this evening he started to experience an intense 10 out of 10 cramping abdominal pain. He states it is persistent and he has tried [id number] Tylenol without relief. States Marcelo catheter has been draining without any signs of blood. Patient does report a history of a penis pump many years ago. He denies any nausea, vomiting, fevers, constipation/diarrhea. His last bowel movement was yesterday and was "normal". He does report a remote history of gastric bypass surgery. - Related Data Home Medications Medication Instructions Recorded Confirmed Cholecalciferol [Vitamin D3 (25 50 mcg PO DAILY 09/05/24 09/05/24 Mcg = 1000 Iu)] Cyclobenzaprine [Flexeril] 10 mg PO Q8H PRN 09/05/24 09/05/24 DULoxetine HCL [Cymbalta] 60 mg PO BID 09/05/24 09/05/24 Eszopiclone [Lunesta] 2 mg PO HS PRN 09/05/24 09/05/24 Lactose-Reduced Food [Ensure Plus 237 ml PO DAILY 09/05/24 09/05/24 High Protein] Pantoprazole Sodium [Protonix] 20 mg PO DAILY 09/05/24 09/05/24 Pramipexole [Mirapex] 1 mg PO BID 09/05/24 09/05/24 Prednisolone Acetate/Pf 1 drop BOTH EYES TID 09/05/24 09/05/24 [Prednisolone Acet 1% Eye Drop] Pregabalin [Lyrica] 150 mg PO BID 09/05/24 09/05/24 Rivaroxaban [Xarelto] 20 mg PO DIRECTED 09/05/24 09/05/24 Solifenacin Succinate [Vesicare] 10 mg PO DAILY 09/05/24 09/05/24 clonazePAM [KlonoPIN] 1 mg PO DAILY PRN 09/05/24 09/05/24 traZODone HCL [Desyrel] 50 mg PO HS PRN 09/05/24 09/05/24 Previous Rx's Medication Instructions Recorded Losartan [Cozaar] 25 mg PO HS 30 Days #30 tab 09/07/24 Allergies Allergy/AdvReac Type Severity Reaction Status Date / Time NSAIDS (Non-Steroidal AdvReac Unknown Verified 10/02/24 22:48 Anti-Inflamma Review of Systems ROS Statement: Those systems with pertinent positive or pertinent negative responses have been documented in the HPI. ROS Other: All systems not noted in ROS Statement are negative. 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 bowel surgery twisted bowel post op bariatric sx. Past Anesthesia/Blood Transfusion Reactions: No Reported Reaction Type of Cardiac Device: Permanent Pacemaker Device Placement Date:: 2005 Past Psychological History: Anxiety, Depression Smoking Status: Never smoker Past Alcohol Use History: None Reported Past Drug Use History: None Reported - Past Family History Father Family Medical History: Unable to Obtain General Exam Limitations: no limitations General appearance: alert, in no apparent distress Respiratory exam: Present: normal lung sounds bilaterally. Absent: respiratory distress, wheezes, rales, rhonchi, stridor Cardiovascular Exam: Present: regular rate, normal rhythm, normal heart sounds. Absent: systolic murmur, diastolic murmur, rubs, gallop, clicks GI/Abdominal exam: Present: soft, tenderness (RLQ ), normal bowel sounds. Absent: distended, guarding, rebound, rigid Neurological exam: Present: alert, oriented X3, CN II-XII intact Skin exam: Present: warm, dry, intact, normal color. Absent: rash Course Vital Signs 10/02/24 10/03/24 22:46 02:40 Temperature 97.7 F 97.9 F Pulse Rate 82 81 Respiratory 18 18 Rate Blood Pressure 143/85 142/84 O2 Sat by Pulse 98 98 Oximetry Medical Decision Making - Medical Decision Making Was pt. sent in by a medical professional or institution (, PA, RECEPTIONIST SECRETARY, urgent care, hospital, or senior living...) When possible be specific @ -No Did you speak to anyone other than the patient for history (EMS, parent, family, police, friend...)? What history was obtained from this source @ -, at bedside, aiding in HPI and past medical history. Did you review nursing and triage notes (agree or disagree)? Why? @ -I reviewed and agree with nursing and triage notes Were old charts reviewed (outside hosp., previous admission, EMS record, old EKG, old radiological studies, urgent care reports/EKG's, senior living records)? Report findings @ -Yes, I reviewed ER visit from 10-01-2024. Patient diagnosed with urinary retention and discharged with a Marcelo catheter in place. Patient advised to follow-up with urology. Differential Diagnosis (chest pain, altered mental status, abdominal pain women, abdominal pain men, vaginal bleeding, weakness, fever, dyspnea, syncope, headache, dizziness, GI bleed, back pain, seizure, CVA, palpatations, mental health, musculoskeletal)? @ -Urinary retention, UTI, nephrolithiasis, appendicitis... This list is not meant to be all-inclusive EKG interpreted by me (3pts min.). @ -None done X-rays interpreted by me (1pt min.). @ -None done CT interpreted by me (1pt min.). @ -CT abdomen pelvis showing mild to moderate diffuse colonic fecal stasis and/or constipation. No bowel obstruction. No acute finding otherwise. U/S interpreted by me (1pt. min.). @ -None done What testing was considered but not performed or refused? (CT, X-rays, U/S, labs)? Why? @ -None What meds were considered but not given or refused? Why? @ -None Did you discuss the management of the patient with other professionals (professionals i.e. DrArleen, PA, RECEPTIONIST SECRETARY, lab, RT, psych nurse, medical social worker, rn travel, teacher, guest relations officer, special education case manager)? Give summary @ -No Was smoking cessation discussed for >3mins.? @ -No Was critical care preformed (if so, how long)? @ -No Were there social determinants of health that impacted care today? How? (Homelessness, low income, unemployed, alcoholism, drug addiction, transportation, low edu. Level, literacy, decrease access to med. care, senior care, rehab)? @ -No Was there de-escalation of care discussed even if they declined (Discuss DNR or withdrawal of care, Hospice)? DNR status @ -No What co-morbidities impacted this encounter? (DM, HTN, Smoking, COPD, CAD, Cancer, CVA, ARF, Chemo, Hep., AIDS, mental health diagnosis, sleep apnea, morbid obesity)? @ -Urinary retention Was patient admitted / discharged? Hospital course, mention meds given and route, prescriptions, significant lab abnormalities, going to OR and other pertinent info. @ -Discharge. 74-year-old male presented to the ER with a chief complaint of abdominal pain. Patient seen here 2 days prior and diagnosed with urinary retention. Patient has Marcelo catheter in place. History and physical exam completed.Vitals within normal limits. Patient in no signs of acute distress nontoxic-appearing. Lower abdominal tenderness with no rebound or guarding. Marcelo catheter is draining pale urine on evaluation. Urinalysis, bladder scan and Marcelo catheter replacement will be performed initially. Patient given IM Dilaudid for pain control initially. Urinalysis unremarkable. Bladder scan 87ml. Marcelo catheter replaced. Upon reevaluation, patient complaining of continued pain to the right lower quadrant. Due to concern of other etiology blood work and CT will be obtained, patient is agreeable. CBC remarkable for a microcytic normochromic anemia with a hemoglobin of 10.3 which appears to be chronic in nature. WBC 6.8, lactic 0.[address] abdomen pelvis concerning of constipation. Patient received further symptomatic control with IV Dilaudid and 1 L IV fluids. Upon reevaluation patient reporting improvement of pain after medications and Marcelo catheter replacement. Results discussed with patient, all questions answered. I advised [id number] MiraLAX and ducolax for constipation relief outpaitent. Marcelo catheter draining approximately 400 mL pale urine. Patient is stable for discharge at this time with outpatient follow-up to urology. Strict return parameters discussed. Patient discharged in stable condition with follow-up to urology. Patient verbally expressed understanding and agreement with care plan. Case discussed with ED attending, Dr. Hoyt. Undiagnosed new problem with uncertain prognosis? @ -No Drug Therapy requiring intensive monitoring for toxicity (Heparin, Nitro, Insulin, Cardizem)? @ -No Were any procedures done? @ -No Diagnosis/symptom? @ -Abdominal pain/Marcelo catheter in place due to urinary retention Acute, or Chronic, or Acute on Chronic? @ -Acute Uncomplicated (without systemic symptoms) or Complicated (systemic symptoms)? @ -Uncomplicated Side effects of treatment? @ -No Exacerbation, Progression, or Severe Exacerbation? @ -No Poses a threat to life or bodily function? How? (Chest pain, [place], [place], pneumonia, PE, COPD, DKA, ARF, appy, cholecystitis, CVA, Diverticulitis, Homicidal, Suicidal, threat to staff... and all critical care pts) @ -No - Lab Data Result diagrams: 10/03/24 00:17 10/03/24 00:17 Lab Results 10/02/24 10/03/24 10/03/24 Range/Units 23:44 00:17 00:17 WBC 6.8 (3.8-10.6) k/uL RBC 4.12 L (4.30-5.90) m/uL Hgb 10.3 L (13.0-17.5) gm/dL Hct 32.3 L (39.0-53.0) % MCV 78.6 L (80.0-100.0) fL MCH 25.0 (25.0-35.0) pg MCHC 31.8 (31.0-37.0) g/dL RDW 16.3 H (11.5-15.5) % Plt Count 217 (150-450) k/uL MPV 9.2 Neutrophils % 62 % Lymphocytes % 24 % Monocytes % 7 % Eosinophils % 3 % Basophils % 0 % Neutrophils # 4.2 (1.3-7.7) k/uL Lymphocytes # 1.6 (1.0-4.8) k/uL Monocytes # 0.5 (0-1.0) k/uL Eosinophils # 0.2 (0-0.7) k/uL Basophils # 0.0 (0-0.2) k/uL Hypochromasia Slight Anisocytosis Slight Microcytosis Slight Sodium 136 L (137-145) mmol/L Potassium 4.5 (3.5-5.1) mmol/L Chloride 108 H (98-107) mmol/L Carbon Dioxide 23 (22-30) mmol/L Anion Gap 5 mmol/L BUN 10 (9-20) mg/dL Creatinine 0.75 (0.66-1.25) mg/dL Est GFR (CKD-EPI)AfAm >90 (>60 ml/min/1.73 sqM) Est GFR (CKD-EPI)NonAf >90 (>60 ml/min/1.73 sqM) Glucose 120 H (74-99) mg/dL Plasma Lactic Acid Joshua (0.7-2.0) mmol/L Calcium 8.6 (8.4-10.2) mg/dL Total Bilirubin 0.9 (0.2-1.3) mg/dL AST 22 (17-59) U/L ALT 23 (4-49) U/L Alkaline Phosphatase 123 (38-126) U/L Total Protein 6.9 (6.3-8.2) g/dL Albumin 3.9 (3.5-5.0) g/dL Urine Color Colorless Urine Appearance Clear (Clear) Urine pH 5.5 (5.0-8.0) Ur Specific [place] 1.003 (1.001-1.035) Urine Protein Negative (Negative) Urine Glucose (UA) Negative (Negative) Urine Ketones Negative (Negative) Urine Blood Negative (Negative) Urine Nitrite Negative (Negative) Urine Bilirubin Negative (Negative) Urine Urobilinogen <2.0 (<2.0) mg/dL Ur Leukocyte Esterase Negative (Negative) 10/03/24 Range/Units 00:34 WBC (3.8-10.6) k/uL RBC (4.30-5.90) m/uL Hgb (13.0-17.5) gm/dL Hct (39.0-53.0) % MCV (80.0-100.0) fL MCH (25.0-35.0) pg MCHC (31.0-37.0) g/dL RDW (11.5-15.5) % Plt Count (150-450) k/uL MPV Neutrophils % % Lymphocytes % % Monocytes % % Eosinophils % % Basophils % % Neutrophils # (1.3-7.7) k/uL Lymphocytes # (1.0-4.8) k/uL Monocytes # (0-1.0) k/uL Eosinophils # (0-0.7) k/uL Basophils # (0-0.2) k/uL Hypochromasia Anisocytosis Microcytosis Sodium (137-145) mmol/L Potassium (3.5-5.1) mmol/L Chloride (98-107) mmol/L Carbon Dioxide (22-30) mmol/L Anion Gap mmol/L BUN (9-20) mg/dL Creatinine (0.66-1.25) mg/dL Est GFR (CKD-EPI)AfAm (>60 ml/min/1.73 sqM) Est GFR (CKD-EPI)NonAf (>60 ml/min/1.73 sqM) Glucose (74-99) mg/dL Plasma Lactic Acid Joshua 0.7 (0.7-2.0) mmol/L Calcium (8.4-10.2) mg/dL Total Bilirubin (0.2-1.3) mg/dL AST (17-59) U/L ALT (4-49) U/L Alkaline Phosphatase (38-126) U/L Total Protein (6.3-8.2) g/dL Albumin (3.5-5.0) g/dL Urine Color Urine Appearance (Clear) Urine pH (5.0-8.0) Ur Specific [place] (1.001-1.035) Urine Protein (Negative) Urine Glucose (UA) (Negative) Urine Ketones (Negative) Urine Blood (Negative) Urine Nitrite (Negative) Urine Bilirubin (Negative) Urine Urobilinogen (<2.0) mg/dL Ur Leukocyte Esterase (Negative) - Radiology Data Radiology results: report reviewed, image reviewed Disposition Clinical Impression: Marcelo catheter in place, Abdominal pain Disposition: HOME SELF-CARE Condition: Stable Instructions (If sedation given, give patient instructions): Abdominal Pain (ED) Additional Instructions: Follow-up with urology. You may take [id number] Tylenol for pain control. I also recommend close follow-up with PCP. Return to the ER for any new or worsening concerns. Is patient prescribed a controlled substance at d/c from ED?: No Referrals: Jayson Reilly MD [Primary Care Provider] - 1-2 days Darvin Patrick MD [STAFF PHYSICIAN] - 1-2 days Time of Disposition: 01:51
[2024-10-02] MEDS: HYDROmorphone 0.5 MG/0.5 ML SYRINGE IM STA (23:39)
[2024-10-02 23:57] LABS: Appearance,Urine Clear (Clear); Bilirubin,Urine Negative (Negative); Blood,Urine Negative (Negative); Color,Urine Colorless; Glucose,Urine (UA) Negative (Negative); Ketones,Urine Negative (Negative); Leukocyte Esterase,Urine Negative (Negative); Nitrite,Urine Negative (Negative); PH, Urine 5.5 (5.0-8.0); Protein,Urine Negative (Negative); Specific Gravity,Urine 1.003 (1.001-1.035); Urobilinogen,Urine <2.0 mg/dL (<2.0)
[2024-10-03 00:29] LABS: Anisocytosis Slight; Basophils % (A) 0 %; Eosinophils # (A) 0.2 k/uL (0-0.7); Eosinophils % (A) 3 %; HCT 32.3 % (39.0-53.0); HGB 10.3 gm/dL (13.0-17.5); Hypochromasia Slight; Lymphocytes # (A) 1.6 k/uL (1.0-4.8); Lymphocytes % (A) 24 %; MCHC 31.8 g/dL (31.0-37.0); MCV 78.6 fL (80.0-100.0); Mean Platelet Volume 9.2; Microcytosis Slight; Monocytes # (A) 0.5 k/uL (0-1.0); Monocytes % (A) 7 %; Neutrophils # (A) 4.2 k/uL (1.3-7.7); Neutrophils % (A) 62 %; Platelet Count 217 k/uL (150-450); RBC 4.12 m/uL (4.30-5.90); RDW 16.3 % (11.5-15.5); WBC 6.8 k/uL (3.8-10.6)
[2024-10-03 00:44] LABS: ALT 23 U/L (4-49); AST 22 U/L (17-59); African American GFR (CKD) >90 (>60 ml/min/1.73 sqM); Albumin 3.9 g/dL (3.5-5.0); Alkaline Phosphatase 123 U/L (38-126); Anion Gap 5 mmol/L; Blood Urea Nitrogen 10 mg/dL (9-20); Calcium 8.6 mg/dL (8.4-10.2); Carbon Dioxide 23 mmol/L (22-30); Chloride 108 mmol/L (98-107); Glucose 120 mg/dL (74-99); Non-African American GFR(CKD) >90 (>60 ml/min/1.73 sqM); Potassium 4.5 mmol/L (3.5-5.1); Sodium 136 mmol/L (137-145); Total Bilirubin 0.9 mg/dL (0.2-1.3); Total Protein 6.9 g/dL (6.3-8.2)
--- NOTE | 2024-10-03 01:39 | CT ---
EXAMINATION TYPE: CT abdomen pelvis w con DATE OF EXAM: 10/03/2024 COMPARISON: None. HISTORY: Lower abdominal pain. Hs a cath and states that it is draining. CT DLP: 938.1 mGycm, Automated Exposure Control for Dose Reduction was Utilized. CONTRAST: CT scan of the abdomen and pelvis is performed with oral and with IV Contrast, patient injected with 100 Ml mL of Isovue 300. FINDINGS: LUNG BASES: Partial visualization of right-sided pacemaker device. LIVER/GB: Gallbladder is distended margins without surrounding inflammatory change. PANCREAS: No significant abnormality is seen. SPLEEN: No significant abnormality is seen. ADRENALS: No significant abnormality is seen. KIDNEYS: Symmetric uptake and excretion without hydronephrosis seen bilaterally. Marcelo catheter in bl adder is present which is not completely empty. BOWEL: Surgical changes from gastric bypass procedure is again. No abnormal small or large bowel dila tation. Mild/moderate diffuse colonic fecal prominence PROSTATE/SEMINAL VESICLES: Anterior left pelvic pain pump reservoir noted axial image 71. Prostate is normal in size. LYMPH NODES: No greater than 1cm abdominal or pelvic lymph nodes are appreciated. OSSEOUS STRUCTURES: Grade 1 retrolisthesis L2 on L3. OTHER: No significant additional abnormality is seen. IMPRESSION: [id number] diffuse colonic fecal stasis and/or constipation. No bowel obstruction. No acute finding otherwise seen. [facility], , 10/03/2024 1:37 AM
[2024-10-03] MEDS: HYDROmorphone 1 MG/ML 1 ML SYRINGE IVP STA (02:11)
[2024-10-03] MEDS: SODIUM CHLORIDE 0.9% 1,000 ML IV STA (02:15)
[2024-10-03 02:41] VITALS: BP 142/84; PULSE 81; TEMP 97.9
== END 2024-10-03 02:40 | disposition home or self-care (01) ==
LOC: EC 22:44
DX: R10.31 Right lower quadrant pain (principal); D50.9 Iron deficiency anemia, unspecified; Z88.6 Allergy status to analgesic agent
CPT/HCPCS: 51798; 36415; 80053; 83605; 85025; 81003; 74177; 99284; 51702; 96374; 96372; J1171 ×2; Q9967

== ENCOUNTER 2024-10-10 16:04 | Emergency (ER) | payer MEDICARE ==
[2024-10-10] MEDS: HYDROmorphone 1 MG/ML 1 ML SYRINGE IVP STA ×2 (17:33→19:21)
[2024-10-10] MEDS: PREGABALIN 75 MG CAP PO STA (17:34)
[2024-10-10] MEDS: SODIUM CHLORIDE 0.9% 1,000 ML IV STA (17:38)
--- NOTE | 2024-10-10 18:45 | CT ---
EXAMINATION TYPE: CT cervical spine wo con, CT thoracic spine wo con DATE OF EXAM: 10/10/2024 6:13 PM COMPARISON: None. CLINICAL INDICATION: Male, 74 years old with history of acute on chronic pain; Severe chronic neck/ba ck pain. TECHNIQUE: Axial imaging of the cervical and thoracic spine with sagittal coronal reformats. Contrast used: mL of , (if blank None) Oral contrast used: (if blank None) CT DLP: 288.8 (accession [id number]), 960.1 (accession [id number]) mGycm, Automated exposure control for dose reduction was used. FINDINGS: Fracture: None. Osseous structures: Multilevel degenerative disc disease changes with endplate spurring and disc oste ophyte complex's. Multilevel osteophyte formation and facet joint arthropathy throughout with vacuum disc phenomenon throughout the thoracic spine. Vertebral alignment: Grade 1 anterolisthesis of C3 on C4 and C4 on C5. Increased kyphosis of the thor acic spine. Spinal canal/Neural Foramina: Disc osteophyte complexes at C5-C6 with at least mild spinal canal sten osis. No evidence for significant neural foraminal stenosis. No evidence for significant neural erica inal stenosis or spinal canal stenosis and thoracic spine. Neck soft tissues: Prevertebral soft tissues are within normal limits. Other: The airway is patent. The lung apices are clear. Cardiac conduction leads partially visualized. IMPRESSION: 1. No evidence of spine fracture. 2. Moderate multilevel degenerative disc disease. No evidence for significant spinal canal stenosis. No evidence for significant neural foraminal stenosis. Grade 1 anterolisthesis at multiple levels in the upper cervical spine. 3. Increased kyphotic curvature to the thoracic spine multilevel moderate degeneration changes throug hout spine. [facility], , 10/10/2024 6:43 PM
--- NOTE | 2024-10-10 19:16 | ED ---
General Adult HPI - General Chief complaint: Neck Pain/Injury Stated complaint: Neck Pain Time Seen by Provider: 10/10/24 17:10 Source: patient, family, RN notes reviewed, old records reviewed Mode of arrival: wheelchair Limitations: physical limitation - History of Present Illness Initial comments: Patient is a 74-year-old male presents emergency department with acute on chronic neck pain. States he has been without his Lyrica for the last few weeks as he recently moved here. No recent MRI or imaging. No recent trauma. States he has chronic pain of his neck. No new symptoms. Pain radiates along the spine. Chronic degenerative changes. Presents for further evaluation at this time. Looking for analgesia and pain control. - Related Data Home Medications Medication Instructions Recorded Confirmed Cholecalciferol [Vitamin D3 (25 50 mcg PO DAILY 09/05/24 09/05/24 Mcg = 1000 Iu)] Cyclobenzaprine [Flexeril] 10 mg PO Q8H PRN 09/05/24 09/05/24 DULoxetine HCL [Cymbalta] 60 mg PO BID 09/05/24 09/05/24 Eszopiclone [Lunesta] 2 mg PO HS PRN 09/05/24 09/05/24 Lactose-Reduced Food [Ensure Plus 237 ml PO DAILY 09/05/24 09/05/24 High Protein] Pantoprazole Sodium [Protonix] 20 mg PO DAILY 09/05/24 09/05/24 Pramipexole [Mirapex] 1 mg PO BID 09/05/24 09/05/24 Prednisolone Acetate/Pf 1 drop BOTH EYES TID 09/05/24 09/05/24 [Prednisolone Acet 1% Eye Drop] Pregabalin [Lyrica] 150 mg PO BID 09/05/24 09/05/24 Rivaroxaban [Xarelto] 20 mg PO DIRECTED 09/05/24 09/05/24 Solifenacin Succinate [Vesicare] 10 mg PO DAILY 09/05/24 09/05/24 clonazePAM [KlonoPIN] 1 mg PO DAILY PRN 09/05/24 09/05/24 traZODone HCL [Desyrel] 50 mg PO HS PRN 09/05/24 09/05/24 Previous Rx's Medication Instructions Recorded Losartan [Cozaar] 25 mg PO HS 30 Days #30 tab 09/07/24 Pregabalin [Lyrica] 150 mg PO BID 7 Days #14 cap 10/10/24 Allergies Allergy/AdvReac Type Severity Reaction Status Date / Time NSAIDS (Non-Steroidal AdvReac Unknown Verified 10/10/24 16:46 Anti-Inflamma Review of Systems ROS Statement: Those systems with pertinent positive or pertinent negative responses have been documented in the HPI. Review of Systems: CONST: Denies fever EYES: Denies blurry vision ENT: Denies nasal congestion C/V: Denies Chest pain RESP: Denies shortness of breath GI: Denies abdominal pain : Denies dysuria SKIN: Denies rash. MSK: Endorses neck, back pain NEURO: Denies headache ROS Other: All systems not noted in ROS Statement are negative. 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 bowel surgery twisted bowel post op bariatric sx. Past Anesthesia/Blood Transfusion Reactions: No Reported Reaction Type of Cardiac Device: Permanent Pacemaker Device Placement Date:: 2005 Past Psychological History: Anxiety, Depression Smoking Status: Never smoker Past Alcohol Use History: None Reported Past Drug Use History: None Reported - Past Family History Father Family Medical History: Unable to Obtain General Exam - General Exam Comments Initial Comments: General: Appears in Mild distress. HEAD: Normal with no signs of head trauma. EYES: PERRLA, EOMI, conjunctiva normal, no discharge. 3 mm and equal bilaterally. ENT: Hearing grossly intact, normal oropharynx. RESPIRATORY: Clear breath sounds bilaterally. No wheezes, rales, or rhonchi. C/V: Regular rate and rhythm. S1 and S2 auscultated, peripheral pulses 2+ and intact throughout ABD: Abd is soft, nontender, nondistended EXT: Decreased range of motion of the neck secondary to pain. Midline cervical, upper thoracic spine tenderness to palpation which is chronic for the patient. No obvious step-offs or deformities palpated. SKIN: No rashes or lesions observed on exposed skin. NEURO: Alert and oriented x 4. No focal deficits. Limitations: physical limitation Course Vital Signs 10/10/24 10/10/24 16:46 19:27 Temperature 98.6 F 98.9 F Pulse Rate 80 70 Respiratory 20 16 Rate Blood Pressure 135/77 120/76 O2 Sat by Pulse 98 96 Oximetry Medical Decision Making - Medical Decision Making Was pt. sent in by a medical professional or institution ([facility], [employer], urgent care, hospital, or usp...) When possible be specific @ -No Did you speak to anyone other than the patient for history (EMS, parent, family, police, friend...)? What history was obtained from this source @ -No Did you review nursing and triage notes (agree or disagree)? Why? @ -I reviewed and agree with nursing and triage notes Were old charts reviewed (outside hosp., previous admission, EMS record, old EKG, old radiological studies, urgent care reports/EKG's, usp records)? Report findings @ -Reviewed, patient was on Lyrica Differential Diagnosis (chest pain, altered mental status, abdominal pain women, abdominal pain men, vaginal bleeding, weakness, fever, dyspnea, syncope, headache, dizziness, GI bleed, back pain, seizure, CVA, palpatations, mental health, musculoskeletal)? @ -Differential Musculoskeletal Muscular strain, contusion, ligament sprain, fracture, arthritis, septic arthritis, bursitis, cellulitis, muscle spasm, nerve compression, DVT, arterial occlusion, herpes zoster, electrolyte abnormality, tumor.... This is not meant to be in all inclusive list EKG interpreted by me (3pts min.). @ -None done X-rays interpreted by me (1pt min.). @ -None done CT interpreted by me (1pt min.). @ -CT cervical and thoracic spine reveals chronic degenerative changes with no obvious acute process. U/S interpreted by me (1pt. min.). @ -None done What testing was considered but not performed or refused? (CT, X-rays, U/S, labs)? Why? @ -None What meds were considered but not given or refused? Why? @ -None Did you discuss the management of the patient with other professionals (professionals i.e. [facility], [employer], lab, RT, psych nurse, social service assistant, tool supervisor, teacher, administrative hearing officer, case hardener)? Give summary @ -No Was smoking cessation discussed for >3mins.? @ -No Was critical care preformed (if so, how long)? @ -No Were there social determinants of health that impacted care today? How? (Homelessness, low income, unemployed, alcoholism, drug addiction, transportation, low edu. Level, literacy, decrease access to med. care, long term, rehab)? @ -No Was there de-escalation of care discussed even if they declined (Discuss DNR or withdrawal of care, Hospice)? DNR status @ -No What co-morbidities impacted this encounter? (DM, HTN, Smoking, COPD, CAD, Cancer, CVA, ARF, Chemo, Hep., AIDS, mental health diagnosis, sleep apnea, morbid obesity)? @ -Chronic back pain Was patient admitted / discharged? Hospital course, mention meds given and route, prescriptions, significant lab abnormalities, going to OR and other pertinent info. @ -Patient presents for medication refill as well as evaluation for chronic neck and back pain. Vital signs are within acceptable limits. We will obtain CT imaging as well as administer medications for analgesia. Patient was in agreement this plan. CT imaging shows chronic degenerative changes. Updated the patient. He will be given a refill for his Lyrica and instruction follow-up with his PCP. Given information for spine surgeon follow-up. Likely requires outpatient MRI. Strict return precautions discussed. I will provide the patient with a prescription for Lyrica. I instructed the patient to follow up with their PCP in the next 1-3 days.. I explained that the patient should return to the emergency department if they experience any worsening symptoms. Strict return precautions were discussed with the patient. The patient expressed understanding of these instructions. I answered all questions that the patient had. The patient was discharged home in good condition with their prescriptions and follow up information. Undiagnosed new problem with uncertain prognosis? @ -No Drug Therapy requiring intensive monitoring for toxicity (Heparin, Nitro, Insulin, Cardizem)? @ -No Were any procedures done? @ -No Diagnosis/symptom? @ -Neck pain Acute, or Chronic, or Acute on Chronic? @ -Chronic Uncomplicated (without systemic symptoms) or Complicated (systemic symptoms)? @ -Uncomplicated Side effects of treatment? @ -No Exacerbation, Progression, or Severe Exacerbation? @ -No Poses a threat to life or bodily function? How? (Chest pain, [place], CA, pneumonia, PE, COPD, DKA, ARF, appy, cholecystitis, CVA, Diverticulitis, Homicidal, Suicidal, threat to staff... and all critical care pts) @ -Unlikely at this time Disposition Clinical Impression: Neck pain Disposition: HOME SELF-CARE Condition: Fair Instructions (If sedation given, give patient instructions): Chronic Neck Pain (DC) Prescriptions: Pregabalin [Lyrica] 150 mg PO BID 7 Days #14 cap Is patient prescribed a controlled substance at d/c from ED?: Yes When asked, does pt state using other controlled substances?: Yes If prescribed controlled substance>3 days was MAPS reviewed?: Yes Referrals: Jayson Reilly MD [Primary Care Provider] - 1-2 days Elsa Del Valle MD [Medical Doctor] - 1-2 days Jean Thomas DO [Doctor of Osteopathic Medicine] - 1-2 days Time of Disposition: 19:15
[2024-10-10] MEDS: ACET/COD 300 MG/30 MG STARTER PACK 6 TAB BTL PO STA (19:22)
[2024-10-10 19:40] VITALS: BP 120/76; PULSE 70; RESP 16; TEMP 98.9
== END 2024-10-10 19:40 | disposition home or self-care (01) ==
LOC: EC 16:04
DX: G89.29 Other chronic pain (principal); M54.2 Cervicalgia; Z88.6 Allergy status to analgesic agent; Z95.0 Presence of cardiac pacemaker
CPT/HCPCS: 72128; 72125; 99283; 96374; 96376; 96361 ×2; J1171

== ENCOUNTER 2024-10-24 18:43 | Emergency (ER) | payer MEDICARE ==
[2024-10-24] MEDS: SODIUM CHLORIDE 0.9% 1,000 ML IV ONE (19:22)
[2024-10-24 19:29] LABS: Anisocytosis Slight; Basophils # (A) 0.1 k/uL (0-0.2); Basophils % (A) 1 %; Eosinophils # (A) 0.1 k/uL (0-0.7); Eosinophils % (A) 1 %; HCT 36.1 % (39.0-53.0); HGB 11.1 gm/dL (13.0-17.5); Hypochromasia Moderate; Lymphocytes # (A) 1.6 k/uL (1.0-4.8); Lymphocytes % (A) 15 %; MCH 24.7 pg (25.0-35.0); MCHC 30.9 g/dL (31.0-37.0); MCV 79.8 fL (80.0-100.0); Mean Platelet Volume 8.7; Microcytosis Slight; Monocytes # (A) 0.6 k/uL (0-1.0); Monocytes % (A) 5 %; Neutrophils % (A) 76 %; Platelet Count 205 k/uL (150-450); RBC 4.52 m/uL (4.30-5.90); RDW 16.6 % (11.5-15.5); WBC 10.5 k/uL (3.8-10.6)
[2024-10-24 19:38] LABS: Partial Thromboplastin Time 22.4 sec (22.0-30.0); Prothrombin Time 11.2 sec (10.0-12.5)
[2024-10-24 19:40] LABS: ALT 26 U/L (4-49); AST 28 U/L (17-59); African American GFR (CKD) >90 (>60 ml/min/1.73 sqM); Albumin 4.6 g/dL (3.5-5.0); Alkaline Phosphatase 108 U/L (38-126); Anion Gap 7 mmol/L; Blood Urea Nitrogen 11 mg/dL (9-20); Calcium 9.4 mg/dL (8.4-10.2); Carbon Dioxide 23 mmol/L (22-30); Chloride 106 mmol/L (98-107); Glucose 109 mg/dL (74-99); Magnesium 1.8 mg/dL (1.6-2.3); Non-African American GFR(CKD) >90 (>60 ml/min/1.73 sqM); Potassium 4.5 mmol/L (3.5-5.1); Sodium 136 mmol/L (137-145); Total Bilirubin 0.8 mg/dL (0.2-1.3); Total Protein 7.9 g/dL (6.3-8.2)
--- NOTE | 2024-10-24 19:52 | XR ---
EXAMINATION TYPE: XR chest 2V DATE OF EXAM: 10/24/2024 7:38 PM COMPARISON: Chest radiographs from 09/05/2024 CLINICAL INDICATION: Male, 74 years old with history of Chest Pain; TECHNIQUE: XR chest 2V Frontal and lateral views of the chest. FINDINGS: Lungs/Pleura: There is no evidence of pleural effusion, focal consolidation, or pneumothorax. Pulmonary vascularity: Unremarkable. Heart/mediastinum: Cardiomediastinal silhouette is unremarkable. Atherosclerotic calcifications are seen in the aorta. Two lead cardiac conduction device overlying the left hemithorax with lead tips pr ojecting over the right ventricle and right atrium. Musculoskeletal: No acute osseous pathology. IMPRESSION: No acute cardiopulmonary disease/process. [facility], , 10/24/2024 7:49 PM
--- NOTE | 2024-10-24 19:58 | ED ---
General Adult HPI - General Chief complaint: Syncope Stated complaint: Abn Labs Time Seen by Provider: 10/24/24 18:50 Source: patient, RN notes reviewed, old records reviewed Mode of arrival: wheelchair Limitations: no limitations - History of Present Illness Initial comments: This is a 74-year-old male who presents to the emergency department complaining of having a near syncopal episode. Patient states she has had issues with near syncope and syncope over the last couple years. Patient states more recently in the last couple of days its gotten quite bad and anytime he seems to stands up he feels as though he is going to pass out. Patient states he has not passed out in the last couple of days. Patient states if he stands and holds onto elena ething for a bit it seems to resolve itself. Patient denies chest pain palpitations difficulty breathing shortness of breath. Patient has any fever chills or cough or patient has any diarrhea patient denies nausea vomiting. - Related Data Home Medications Medication Instructions Recorded Confirmed Cholecalciferol [Vitamin D3 (25 50 mcg PO DAILY 09/05/24 10/24/24 Mcg = 1000 Iu)] Cyclobenzaprine [Flexeril] 10 mg PO Q8H PRN 09/05/24 10/24/24 DULoxetine HCL [Cymbalta] 60 mg PO BID 09/05/24 10/24/24 Eszopiclone [Lunesta] 2 mg PO HS PRN 09/05/24 10/24/24 Lactose-Reduced Food [Ensure Plus 237 ml PO DAILY 09/05/24 10/24/24 High Protein] Pantoprazole Sodium [Protonix] 20 mg PO DAILY 09/05/24 10/24/24 Pramipexole [Mirapex] 1 mg PO BID 09/05/24 10/24/24 Prednisolone Acetate/Pf 1 drop BOTH EYES TID 09/05/24 10/24/24 [Prednisolone Acet 1% Eye Drop] Rivaroxaban [Xarelto] 20 mg PO DIRECTED 09/05/24 10/24/24 Solifenacin Succinate [Vesicare] 10 mg PO DAILY 09/05/24 10/24/24 clonazePAM [KlonoPIN] 1 mg PO DAILY PRN 09/05/24 10/24/24 traZODone HCL [Desyrel] 50 mg PO HS PRN 09/05/24 10/24/24 Semaglutide [Ozempic] 0.25 mg SQ MCCOY 10/24/24 10/24/24 Previous Rx's Medication Instructions Recorded Losartan [Cozaar] 25 mg PO HS 30 Days #30 tab 09/07/24 Pregabalin [Lyrica] 150 mg PO BID 7 Days #14 cap 10/10/24 Allergies Allergy/AdvReac Type Severity Reaction Status Date / Time NSAIDS (Non-Steroidal AdvReac Unknown Verified 10/24/24 19:36 Anti-Inflamma Review of Systems ROS Statement: Those systems with pertinent positive or pertinent negative responses have been documented in the HPI. ROS Other: All systems not noted in ROS Statement are negative. Past Medical History Past Medical History: Diabetes Mellitus, Syncope Additional Past Medical History / Comment(s): Long Covid Syndrome History of Any Multi-Drug Resistant Organisms: None Reported Past Surgical History: Pacemaker Additional Past Surgical History / Comment(s): bariatric sx 1998. 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 bowel surgery twisted bowel post op bariatric sx. Past Anesthesia/Blood Transfusion Reactions: No Reported Reaction Type of Cardiac Device: Permanent Pacemaker Device Placement Date:: 2005 Past Psychological History: Anxiety, Depression Smoking Status: Never smoker Past Alcohol Use History: None Reported Past Drug Use History: None Reported - Past Family History Father Family Medical History: Unable to Obtain General Exam - General Exam Comments Initial Comments: GENERAL: Patient is well-developed and well-nourished. Patient is nontoxic and well- hydrated and is in no acute distress. ENT: Neck is soft and supple. No significant lymphadenopathy is noted. Oropharynx is clear. Moist mucous membranes. Neck has full range of motion without eliciting any pain. There is no thyroid enlargement and no masses were felt. EYES: The sclera were anicteric and conjunctiva were pink and moist. Extraocular movements were intact and pupils were equal round and reactive to light. Eyelids were unremarkable. PULMONARY: Unlabored respirations. Good breath sounds bilaterally. No audible rales rhonchi or wheezing was noted. CARDIOVASCULAR: There is a regular rate and rhythm without any murmurs gallops or rubs. Femoral pulses are equal bilaterally ABDOMEN: Soft and nontender with normal bowel sounds. No palpable organomegaly was noted. There is no palpable pulsatile mass. SKIN: Skin is clear with no lesions or rashes and otherwise unremarkable. NEUROLOGIC: Patient is alert and oriented x3. Cranial nerves II through XII are grossly intact. Motor and sensory are also intact. Normal speech, volume and content. Symmetrical smile. Cerebellar exam grossly intact. MUSCULOSKELETAL: Normal extremities with adequate strength and full range of motion. No lower extremity swelling or edema. No calf tenderness. LYMPHATICS: No significant lymphadenopathy is noted PSYCHIATRIC: Normal psychiatric evaluation. Normal interpersonal interactions appears functionally intact in deals appropriately with others. No signs of depression. No signs of anxiety. No delusions. No hallucinations. Limitations: no limitations Course Vital Signs 10/24/24 10/24/24 10/24/24 18:49 19:18 19:19 Temperature 97.9 F Pulse Rate 89 Pulse Rate [ 63 73 Bilateral Pulse Oximetery] Respiratory 18 Rate Blood Pressure 123/78 Blood Pressure 113/69 [Right Arm Sitting] Blood Pressure [Right Arm Standing] Blood Pressure 117/71 [Right Arm Supine] O2 Sat by Pulse 99 Oximetry 10/24/24 19:20 Temperature Pulse Rate Pulse Rate [ 83 Bilateral Pulse Oximetery] Respiratory Rate Blood Pressure Blood Pressure [Right Arm Sitting] Blood Pressure 127/83 [Right Arm Standing] Blood Pressure [Right Arm Supine] O2 Sat by Pulse Oximetry Medical Decision Making - Medical Decision Making EKG is interpreted by myself. EKG shows a paced rhythm at 90 bpm IA was 180 QRS is 106 QT interval 339 QTc is 387. Was pt. sent in by a medical professional or institution (FREDI Gonzalez, EVS TECH, urgent care, hospital, or shelter...) When possible be specific @ -No Did you speak to anyone other than the patient for history (EMS, parent, family, police, friend...)? What history was obtained from this source @ -No Did you review nursing and triage notes (agree or disagree)? Why? @ -I reviewed and agree with nursing and triage notes Were old charts reviewed (outside hosp., previous admission, EMS record, old EKG, old radiological studies, urgent care reports/EKG's, shelter records)? Report findings @ -No old charts were reviewed Differential Diagnosis? @ -Differential Syncope: Valvular disease, hypertrophic cardiomyopathy, pulmonary embolism, tamponade, tachycardia, bradycardia, OH, hypovolemia, hemorrhage, dissection, anemia, intracranial hemorrhage, seizure, hypoglycemia, carbon monoxide poisoning, this is not meant to be an all-inclusive list. EKG interpreted by me (3pts min.). @ -As above X-rays interpreted by me (1pt min.). @ -Chest x-ray shows no acute abnormality CT interpreted by me (1pt min.). @ -None done U/S interpreted by me (1pt. min.). @ -None done What testing was considered but not performed or refused? (CT, X-rays, U/S, labs)? Why? @ -None What meds were considered but not given or refused? Why? @ -None Did you discuss the management of the patient with other professionals (professionals i.e. DrArleen, PA, EVS TECH, lab, RT, psych nurse, perinatal social worker, computer analyst, teacher, transportation security officer, egg caser)? Give summary @ -No Was smoking cessation discussed for >3mins.? @ -No Was critical care preformed (if so, how long)? @ -No Were there social determinants of health that impacted care today? How? (Homelessness, low income, unemployed, alcoholism, drug addiction, transpo rtation, low edu. Level, literacy, decrease access to med. care, senior care, rehab)? @ -No Was there de-escalation of care discussed even if they declined (Discuss DNR or withdrawal of care, Hospice)? DNR status @ -No What co-morbidities impacted this encounter? (DM, HTN, Smoking, COPD, CAD, Cancer, CVA, ARF, Chemo, Hep., AIDS, mental health diagnosis, sleep apnea, morbid obesity)? @ -None Was patient admitted / discharged? Hospital course, mention meds given and route, prescriptions, significant lab abnormalities, going to OR and other pertinent info. @ -Patient had lab work and x-rays done and they were all within normal range. Patient still felt dizzy when he stood but he states has been ongoing for many years and is just seems to have gotten worse over the last few days he will follow-up with his primary medical care doctor Drug Therapy requiring intensive monitoring for toxicity (Heparin, Nitro, Insulin, Cardizem)? @ -No Were any procedures done? @ -No Diagnosis/symptom? @ -Near syncope Acute, or Chronic, or Acute on Chronic? @ -Acute Uncomplicated (without systemic symptoms) or Complicated (systemic symptoms)? @ -Complicate Side effects of treatment? @ -No Exacerbation, Progression, or Severe Exacerbation? @ -No Poses a threat to life or bodily function? How? (Chest pain, USA, OH, pneumonia, PE, COPD, DKA, ARF, appy, cholecystitis, CVA, Diverticulitis, Homicidal, Suicidal, threat to staff... and all critical care pts) @ -No - Lab Data Result diagrams: 10/24/24 19:16 10/24/24 19:16 Lab Results 10/24/24 10/24/24 10/24/24 Range/Units 19:16 19:16 19:16 WBC 10.5 (3.8-10.6) k/uL RBC 4.52 (4.30-5.90) m/uL Hgb 11.1 L (13.0-17.5) gm/dL Hct 36.1 L (39.0-53.0) % MCV 79.8 L (80.0-100.0) fL MCH 24.7 L (25.0-35.0) pg MCHC 30.9 L (31.0-37.0) g/dL RDW 16.6 H (11.5-15.5) % Plt Count 205 (150-450) k/uL MPV 8.7 Neutrophils % 76 % Lymphocytes % 15 % Monocytes % 5 % Eosinophils % 1 % Basophils % 1 % Neutrophils # 8.0 H (1.3-7.7) k/uL Lymphocytes # 1.6 (1.0-4.8) k/uL Monocytes # 0.6 (0-1.0) k/uL Eosinophils # 0.1 (0-0.7) k/uL Basophils # 0.1 (0-0.2) k/uL Hypochromasia Moderate Anisocytosis Slight Microcytosis Slight PT 11.2 (10.0-12.5) sec INR 1.0 (<1.2) APTT 22.4 (22.0-30.0) sec Sodium 136 L (137-145) mmol/L Potassium 4.5 (3.5-5.1) mmol/L Chloride 106 (98-107) mmol/L Carbon Dioxide 23 (22-30) mmol/L Anion Gap 7 mmol/L BUN 11 (9-20) mg/dL Creatinine 0.72 (0.66-1.25) mg/dL Est GFR (CKD-EPI)AfAm >90 (>60 ml/min/1.73 sqM) Est GFR (CKD-EPI)NonAf >90 (>60 ml/min/1.73 sqM) Glucose 109 H (74-99) mg/dL Calcium 9.4 (8.4-10.2) mg/dL Magnesium 1.8 (1.6-2.3) mg/dL Total Bilirubin 0.8 (0.2-1.3) mg/dL AST 28 (17-59) U/L ALT 26 (4-49) U/L Alkaline Phosphatase 108 (38-126) U/L Troponin I (0.000-0.034) ng/mL Total Protein 7.9 (6.3-8.2) g/dL Albumin 4.6 (3.5-5.0) g/dL 10/24/24 Range/Units 19:16 WBC (3.8-10.6) k/uL RBC (4.30-5.90) m/uL Hgb (13.0-17.5) gm/dL Hct (39.0-53.0) % MCV (80.0-100.0) fL MCH (25.0-35.0) pg MCHC (31.0-37.0) g/dL RDW (11.5-15.5) % Plt Count (150-450) k/uL MPV Neutrophils % % Lymphocytes % % Monocytes % % Eosinophils % % Basophils % % Neutrophils # (1.3-7.7) k/uL Lymphocytes # (1.0-4.8) k/uL Monocytes # (0-1.0) k/uL Eosinophils # (0-0.7) k/uL Basophils # (0-0.2) k/uL Hypochromasia Anisocytosis Microcytosis PT (10.0-12.5) sec INR (<1.2) APTT (22.0-30.0) sec Sodium (137-145) mmol/L Potassium (3.5-5.1) mmol/L Chloride (98-107) mmol/L Carbon Dioxide (22-30) mmol/L Anion Gap mmol/L BUN (9-20) mg/dL Creatinine (0.66-1.25) mg/dL Est GFR (CKD-EPI)AfAm (>60 ml/min/1.73 sqM) Est GFR (CKD-EPI)NonAf (>60 ml/min/1.73 sqM) Glucose (74-99) mg/dL Calcium (8.4-10.2) mg/dL Magnesium (1.6-2.3) mg/dL Total Bilirubin (0.2-1.3) mg/dL AST (17-59) U/L ALT (4-49) U/L Alkaline Phosphatase (38-126) U/L Troponin I <0.012 (0.000-0.034) ng/mL Total Protein (6.3-8.2) g/dL Albumin (3.5-5.0) g/dL Disposition Clinical Impression: Near syncope Disposition: HOME SELF-CARE Condition: Good Instructions (If sedation given, give patient instructions): Near Syncope (ED) Is patient prescribed a controlled substance at d/c from ED?: No Referrals: Jayson Reilly MD [Primary Care Provider] - 1-2 days Time of Disposition: 21:04
[2024-10-24 21:30] VITALS: BP 122/77; PULSE 67; RESP 19; TEMP 97.3
== END 2024-10-24 21:30 | disposition home or self-care (01) ==
LOC: EC 18:43
DX: R55 Syncope and collapse (principal); Z88.6 Allergy status to analgesic agent
CPT/HCPCS: 36415; 71046; 80053; 83735; 84484; 85025; 85610; 85730; 93005; 96360; 99284

== ENCOUNTER 2024-10-25 19:38 | Observation (INO) | payer MEDICARE ==
--- NOTE | 2024-10-25 20:02 | ED ---
Fall HPI - General Chief Complaint: Fall Stated Complaint: Syncope/Fall Time Seen by Provider: 10/25/24 19:52 Source: patient Mode of arrival: wheelchair - History of Present Illness Initial Comments: This patient is a 74-year-old man who presents to have evaluation after syncopal episode. The patient had the same yesterday and was seen here. He does have history of previous syncopal episodes prior to that. The patient states that he had gotten up to use the bathroom and then the next and he remembers was being on the floor. Family was notified by phone application that he had fallen so EMS was activated. The patient is complaining of headache and some neck pain. Patient does have chronic underlying neck pain but states this is worse than his baseline. He indicates the side of the neck. No weakness or numbness to the extremities. No neurologic symptoms. Patient gives history of syncopal episodes going back over a year to when he was living in [place] and states that he is fairly certain it is related to a pinched nerve but has not been able to have MRI of the neck to define this. MD Complaint: fall -: minutes(s) Fall From: standing When Fall Occurred: just prior to arrival Fall Witnessed: yes, by family Place Fall Occurred: home Loss of Consciousness: second(s) Prolonged Down Time?: no Location: head, neck Severity: moderate Quality: aching Context: history of frequent falls Associated Symptoms: headache, neck pain - Related Data Home Medications Medication Instructions Recorded Confirmed Cholecalciferol [Vitamin D3 (25 50 mcg PO DAILY 09/05/24 10/26/24 Mcg = 1000 Iu)] Cyclobenzaprine [Flexeril] 10 mg PO Q8H PRN 09/05/24 10/26/24 DULoxetine HCL [Cymbalta] 60 mg PO BID 09/05/24 10/26/24 Eszopiclone [Lunesta] 2 mg PO HS PRN 09/05/24 10/26/24 Lactose-Reduced Food [Ensure Plus 237 ml PO DAILY 09/05/24 10/26/24 High Protein] Pantoprazole Sodium [Protonix] 20 mg PO DAILY 09/05/24 10/26/24 Pramipexole [Mirapex] 1 mg PO BID 09/05/24 10/26/24 Prednisolone Acetate/Pf 1 drop BOTH EYES TID 09/05/24 10/26/24 [Prednisolone Acet 1% Eye Drop] Rivaroxaban [Xarelto] 20 mg PO DAILY 09/05/24 10/27/24 Solifenacin Succinate [Vesicare] 10 mg PO DAILY 09/05/24 10/26/24 clonazePAM [KlonoPIN] 1 mg PO DAILY PRN 09/05/24 10/26/24 traZODone HCL [Desyrel] 50 mg PO HS PRN 09/05/24 10/26/24 Semaglutide [Ozempic] 0.25 mg SQ MCCOY 10/24/24 10/26/24 Previous Rx's Medication Instructions Recorded Pregabalin [Lyrica] 150 mg PO BID 7 Days #14 cap 10/10/24 Losartan [Cozaar] 25 mg PO HS 90 Days #90 tab 10/27/24 Allergies Allergy/AdvReac Type Severity Reaction Status Date / Time morphine AdvReac Itching Verified 10/26/24 22:51 NSAIDS (Non-Steroidal AdvReac Unknown Verified 10/26/24 10:41 Anti-Inflamma Review of Systems ROS Statement: Those systems with pertinent positive or pertinent negative responses have been documented in the HPI. ROS Other: All systems not noted in ROS Statement are negative. Constitutional: Denies: fever, chills, weakness Eyes: Denies: vision change Respiratory: Denies: cough, dyspnea Cardiovascular: Reports: syncope. Denies: chest pain, palpitations, orthopnea, edema Gastrointestinal: Denies: abdominal pain, nausea, vomiting, diarrhea Genitourinary: Denies: dysuria, hematuria Musculoskeletal: Denies: back pain Skin: Denies: rash Neurological: Reports: headache. Denies: weakness, numbness, paresthesias, confusion Past Medical History Past Medical History: Diabetes Mellitus, Syncope Additional Past Medical History / Comment(s): Long Covid Syndrome History of Any Multi-Drug Resistant Organisms: None Reported Past Surgical History: Pacemaker Additional Past Surgical History / Comment(s): bariatric sx 1998. 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 bowel surgery twisted bowel post op bariatric sx. Past Anesthesia/Blood Transfusion Reactions: No Reported Reaction Type of Cardiac Device: Permanent Pacemaker Device Placement Date:: 2005 Past Psychological History: Anxiety, Depression Smoking Status: Never smoker Past Alcohol Use History: None Reported Past Drug Use History: None Reported - Past Family History Father Family Medical History: Unable to Obtain General Exam Limitations: no limitations General appearance: alert, in no apparent distress Head exam: Present: atraumatic, normocephalic Eye exam: Present: normal appearance, PERRL, EOMI. Absent: scleral icterus, conjunctival injection, nystagmus ENT exam: Present: normal oropharynx Neck exam: Present: normal inspection, other (There is no cervical spine tenderness in the midline. The patient does have some lateral tenderness with p alpation) Respiratory exam: Present: normal lung sounds bilaterally. Absent: respiratory distress, wheezes, rales, rhonchi, stridor, accessory muscle use Cardiovascular Exam: Present: regular rate, normal rhythm, normal heart sounds. Absent: systolic murmur, diastolic murmur, rubs, gallop GI/Abdominal exam: Present: soft. Absent: distended, tenderness, guarding, rebound, rigid, mass Extremities exam: Present: normal inspection, normal capillary refill. Absent: pedal edema, calf tenderness Back exam: Present: normal inspection. Absent: CVA tenderness (R), CVA tende rness (L) Neurological exam: Present: alert, oriented X3, CN II-XII intact. Absent: motor sensory deficit Skin exam: Present: warm, dry, intact, normal color. Absent: rash Course Vital Signs 10/25/24 10/25/24 10/25/24 19:40 20:14 22:41 Temperature 98.6 F Pulse Rate 74 60 73 Respiratory 18 19 19 Rate Blood Pressure 125/76 129/78 124/66 O2 Sat by Pulse 94 L 94 L 94 L Oximetry 10/26/24 10/26/24 10/26/24 00:16 01:05 02:46 Temperature 97.8 F Pulse Rate 67 74 77 Respiratory 17 19 17 Rate Blood Pressure 129/88 130/77 134/90 O2 Sat by Pulse 96 95 97 Oximetry 10/26/24 10/26/24 10/26/24 06:16 08:16 12:01 Temperature 97.9 F Pulse Rate 62 72 80 Respiratory 18 18 16 Rate Blood Pressure 117/67 114/68 135/93 O2 Sat by Pulse 94 L 95 97 Oximetry 10/26/24 13:20 Temperature 97.8 F Pulse Rate 77 Respiratory 18 Rate Blood Pressure 131/70 O2 Sat by Pulse 96 Oximetry Medical Decision Making - Medical Decision Making The patient had CT of the brain and cervical spine that I interpreted as negative for acute bony injury, negative for acute intracranial hemorrhage or mass effect. Was pt. sent in by a medical professional or institution (FREDI Gonzalez, SENIOR CHEMIST, urgent care, hospital, or [facility]...) When possible be specific @ -[No] Did you speak to anyone other than the patient for history (EMS, parent, family, police, friend...)? What history was obtained from this source @ -[No] Did you review nursing and triage notes (agree or disagree)? Why? @ -[I reviewed and agree with nursing and triage notes] Were old charts reviewed (outside hosp., previous admission, EMS record, old EKG, old radiological studies, urgent care reports/EKG's, [facility] records)? Report findings @ -[No old charts were reviewed] Differential Diagnosis (chest pain, altered mental status, abdominal pain women, abdominal pain men, vaginal bleeding, weakness, fever, dyspnea, syncope, headache, dizziness, GI bleed, back pain, seizure, CVA, palpatations, mental health, musculoskeletal)? @ -[Differential Syncope: Valvular disease, hypertrophic cardiomyopathy, pulmonary embolism, tamponade, tachycardia, bradycardia, [place], hypovolemia, hemorrhage, dissection, anemia, intracranial hemorrhage, seizure, hypoglycemia, carbon monoxide poisoning, this is not meant to be an all-inclusive list. EKG interpreted by me (3pts min.). @ -[I interpreted as above] X-rays interpreted by me (1pt min.). @ -[None done] CT interpreted by me (1pt min.). @ -[None done] U/S interpreted by me (1pt. min.). @ -[None done] What testing was considered but not performed or refused? (CT, X-rays, U/S, labs)? Why? @ -[None] What meds were considered but not given or refused? Why? @ -[None] Did you discuss the management of the patient with other professionals (professionals i.e. FREDI Gonzalez, SENIOR CHEMIST, lab, RT, psych nurse, licensed clinical social worker, stand up comedian, teacher, chief creative officer, case worker)? Give summary @ -[No] Was smoking cessation discussed for >3mins.? @ -[No] Was critical care preformed (if so, how long)? @ -[No] Were there social determinants of health that impacted care today? How? (Homelessness, low income, unemployed, alcoholism, drug addiction, transportation, low edu. Level, literacy, decrease access to med. care, residential, rehab)? @ -[No] Was there de-escalation of care discussed even if they declined (Discuss DNR or withdrawal of care, Hospice)? DNR status @ -[No] What co-morbidities impacted this encounter? (DM, HTN, Smoking, COPD, CAD, Cancer, CVA, ARF, Chemo, Hep., AIDS, mental health diagnosis, sleep apnea, morbid obesity)? @ -[None] Was patient admitted / discharged? Hospital course, mention meds given and route, prescriptions, significant lab abnormalities, going to OR and other pertinent info. @ -[Patient is a 74-year-old man with recurrent syncopal episodes. Given the frequency of episodes will admit to have cardiology consultation regarding po ssibility of intermittent arrhythmia. Suspect that these are due to orthostatic hypotension, in addition, patient having some radicular symptoms will have neurology/orthopedic surgery consultation Undiagnosed new problem with uncertain prognosis? @ -[No] Drug Therapy requiring intensive monitoring for toxicity (Heparin, Nitro, Insulin, Cardizem)? @ -[No] Were any procedures done? @ -[No] Diagnosis/symptom? @ -[Acute syncopal episode Acute on chronic neck pain Acute, or Chronic, or Acute on Chronic? @ -[Acute Uncomplicated (without systemic symptoms) or Complicated (systemic symptoms)? @ -[uncomplicated Side effects of treatment? @ -[No] Exacerbation, Progression, or Severe Exacerbation? @ -[No] Poses a threat to life or bodily function? How? (Chest pain, USA, [place], pneumonia, PE, COPD, DKA, ARF, appy, cholecystitis, CVA, Diverticulitis, Homicidal, Suicidal, threat to staff... and all critical care pts) @ -[Requires further cardiology evaluation All treatments are based on ideal body weight as in ED triage - Lab Data Result diagrams: 10/25/24 21:12 10/25/24 21:12 Lab Results 10/25/24 10/25/24 10/25/24 Range/Units 21:12 21:12 21:12 WBC 7.3 (3.8-10.6) k/uL RBC 4.42 (4.30-5.90) m/uL Hgb 11.0 L (13.0-17.5) gm/dL Hct 34.9 L (39.0-53.0) % MCV 79.1 L (80.0-100.0) fL MCH 25.0 (25.0-35.0) pg MCHC 31.6 (31.0-37.0) g/dL RDW 16.7 H (11.5-15.5) % Plt Count 190 (150-450) k/uL MPV 8.8 Neutrophils % 63 % Lymphocytes % 25 % Monocytes % 7 % Eosinophils % 3 % Basophils % 1 % Neutrophils # 4.6 (1.3-7.7) k/uL Lymphocytes # 1.8 (1.0-4.8) k/uL Monocytes # 0.5 (0-1.0) k/uL Eosinophils # 0.2 (0-0.7) k/uL Basophils # 0.0 (0-0.2) k/uL Hypochromasia Slight Anisocytosis Slight Microcytosis Slight Sodium 136 L (137-145) mmol/L Potassium 4.6 (3.5-5.1) mmol/L Chloride 107 (98-107) mmol/L Carbon Dioxide 21 L (22-30) mmol/L Anion Gap 8 mmol/L BUN 11 (9-20) mg/dL Creatinine 0.69 (0.66-1.25) mg/dL Est GFR (CKD-EPI)AfAm >90 (>60 ml/min/1.73 sqM) Est GFR (CKD-EPI)NonAf >90 (>60 ml/min/1.73 sqM) Glucose 100 H (74-99) mg/dL Calcium 9.1 (8.4-10.2) mg/dL Total Bilirubin 0.7 (0.2-1.3) mg/dL AST 25 (17-59) U/L ALT 23 (4-49) U/L Alkaline Phosphatase 105 (38-126) U/L Troponin I <0.012 (0.000-0.034) ng/mL Total Protein 7.2 (6.3-8.2) g/dL Albumin 4.1 (3.5-5.0) g/dL - EKG Data -: EKG Interpreted by Me EKG shows normal: axis (Normal), intervals (Normal), QRS complexes (Normal), ST- T waves ( normal) Rate: normal (Rate 62 bpm) Interpretation: other (Atrial paced rhythm) Disposition Clinical Impression: Syncope, Fall Disposition: HOME SELF-CARE Condition: Good Is patient prescribed a controlled substance at d/c from ED?: No
--- NOTE | 2024-10-25 20:43 | CT ---
EXAMINATION TYPE: CT brain cspine wo con DATE OF EXAM: 10/25/2024 8:11 PM COMPARISON: Numerous prior studies, most recently dated 10/10/2024. CLINICAL INDICATION: Male, 74 years old with history of fall injury; Code Coag, Fall on thinners. TECHNIQUE: Brain: Multiple axial CT images of the brain were obtained without IV contrast. Cspine: Axial CT images from the skull base to the inferior aspect of T2 we obtained without intraven ous contrast. Coronal and sagittal reformatted images were also reviewed. . CT DLP: 1306.4 mGycm, Automated exposure control for dose reduction was used. FINDINGS: Brain: No acute intracranial hemorrhage, midline shift or significant acute mass effect. Ventricles and sulc i mildly prominent compatible with generalized cerebral volume loss. Patchy periventricular and subco rtical white matter hypoattenuation likely reflecting chronic microvascular ischemic disease. Basal c isterns are patent. [place]-white matter differentiation otherwise preserved. No sizable extra-axial flu id collection. No large scalp hematoma or depressed calvarial fracture. Cervical spine: Fracture: None. Osseous structures: Multilevel intervertebral disc space loss and anterior osteophyte formation. Vertebral alignment: Minimal anterolisthesis of C3 on C4, similar to prior studies. Spinal canal/Neural Foramina: Multilevel uncovertebral/facet hypertrophy in combination with posterio r disc osteophyte complex these cause varying degrees of neural foraminal and spinal canal stenosis. No high-grade spinal canal stenosis appreciated although evaluation of the spinal canal is limited du e to streak artifact. Neck soft tissues: Prevertebral soft tissues are within normal limits. Other: The airway is patent. The lung apices are clear. IMPRESSION: 1. No acute intracranial process. 2. No evidence of cervical spine fracture. 3. Multilevel cervical spine degenerative changes as above. [facility], , 10/25/2024 8:41 PM
[2024-10-25] MEDS: MORPHINE SULFATE 4 MG/ML SYRINGE IV STA (21:11)
[2024-10-25 21:32] LABS: Anisocytosis Slight; Basophils % (A) 1 %; Eosinophils # (A) 0.2 k/uL (0-0.7); Eosinophils % (A) 3 %; HCT 34.9 % (39.0-53.0); Hypochromasia Slight; Lymphocytes # (A) 1.8 k/uL (1.0-4.8); Lymphocytes % (A) 25 %; MCHC 31.6 g/dL (31.0-37.0); MCV 79.1 fL (80.0-100.0); Mean Platelet Volume 8.8; Microcytosis Slight; Monocytes # (A) 0.5 k/uL (0-1.0); Monocytes % (A) 7 %; Neutrophils # (A) 4.6 k/uL (1.3-7.7); Neutrophils % (A) 63 %; Platelet Count 190 k/uL (150-450); RBC 4.42 m/uL (4.30-5.90); RDW 16.7 % (11.5-15.5); WBC 7.3 k/uL (3.8-10.6)
[2024-10-25 22:03] LABS: ALT 23 U/L (4-49); AST 25 U/L (17-59); African American GFR (CKD) >90 (>60 ml/min/1.73 sqM); Albumin 4.1 g/dL (3.5-5.0); Alkaline Phosphatase 105 U/L (38-126); Anion Gap 8 mmol/L; Blood Urea Nitrogen 11 mg/dL (9-20); Calcium 9.1 mg/dL (8.4-10.2); Carbon Dioxide 21 mmol/L (22-30); Chloride 107 mmol/L (98-107); Glucose 100 mg/dL (74-99); Non-African American GFR(CKD) >90 (>60 ml/min/1.73 sqM); Potassium 4.6 mmol/L (3.5-5.1); Sodium 136 mmol/L (137-145); Total Bilirubin 0.7 mg/dL (0.2-1.3); Total Protein 7.2 g/dL (6.3-8.2)
[2024-10-25] MEDS: diphenhydrAMINE 50 MG/ML 1 ML VIAL IVP STA (22:44)
[2024-10-25] MEDS ORDERED: NITROGLYCERIN SL TABS 0.4 MG TAB SUBLINGUAL PRN (22:57)
[2024-10-25] MEDS ORDERED: TEMAZEPAM 15 MG CAP PO PRN (23:16)
[2024-10-25] MEDS ORDERED: CYCLOBENZAPRINE 10 MG TAB PO PRN (23:16)
[2024-10-26] MEDS: RIVAROXABAN 20 MG TAB PO SCH (00:15)
[2024-10-26] MEDS: clonazePAM 1 MG TAB PO PRN (02:51)
[2024-10-26] MEDS: CHOLECALCIFEROL 25 MCG (1000 IU) TABLET PO SCH (08:17)
[2024-10-26] MEDS: PANTOPRAZOLE 40 MG TABLET PO SCH (08:18)
[2024-10-26] MEDS: DULoxetine HCL 60 MG CAPSULE.DR PO SCH (08:18)
[2024-10-26] MEDS: PREGABALIN 75 MG CAP PO SCH (08:18)
[2024-10-26] MEDS: PRAMIPEXOLE 1 MG TAB PO SCH (08:18)
[2024-10-26] MEDS: TROSPIUM CHLORIDE 20 MG TABLET PO SCH (08:18)
[2024-10-26] MEDS: prednisoLONE ACETATE 1% OPHTH DROPS 5 ML BTL BOTH EYES SCH (08:19)
[2024-10-26] MEDS ORDERED: LACTOSE REDUCED FOOD PO SCH (09:00)
--- NOTE | 2024-10-26 09:55 | P.HPIM ---
History of Present Illness 74-year-old male came in after syncopal episode patient apparently had the syncopal episodes in the past and extensive workup including tilt table test all of which are within normal limits patient takes losartan at home his blood pres sure is low normal which I will discontinue. Patient also complaining of severe neck pain and degenerative disc disease and wanted to see a specialist because of which Dr. Gamble occupational health specialist was consulted. Patient was given Cymbalta as well patient is on Lyrica as well. REVIEW OF SYSTEMS: All other systems are negative except those mentioned in the HPI PHYSICAL EXAMINATION: GENERAL: The patient is alert and oriented x3, not in any acute distress. Well developed, well nourished. HEENT: Pupils are round and equally reacting to light. EOMI. No scleral icterus. No conjunctival pallor. Normocephalic, atraumatic. No pharyngeal erythema. No thyromegaly. CARDIOVASCULAR: S1 and S2 present. No murmurs, rubs, or gallops. PULMONARY: Chest is clear to auscultation, no wheezing or crackles. ABDOMEN: Soft, nontender, nondistended, normoactive bowel sounds. No palpable organomegaly. MUSCULOSKELETAL: No joint swelling or deformity. EXTREMITIES: No cyanosis, clubbing, or pedal edema. NEUROLOGICAL: Gross neurological examination did not reveal any focal deficits. SKIN: No rashes. Assessment and plan -Syncope probably secondary to low blood pressure patient already underwent ext ensive workup in the past will discontinue losartan we will monitor him -Severe cervical degenerative spine disease will order Toradol along with Protonix continue with Lyrica. -As for which patient is on semaglutide weekly -Hypertension patient blood pressure is low normal discontinue losartan DVT prophylaxis: Lovenox Past Medical History Past Medical History: Diabetes Mellitus, Syncope Additional Past Medical History / Comment(s): Long Covid Syndrome History of Any Multi-Drug Resistant Organisms: None Reported Past Surgical History: Pacemaker Additional Past Surgical History / Comment(s): bariatric sx 1998. 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 bowel surgery twisted bowel post op bariatric sx. Past Anesthesia/Blood Transfusion Reactions: No Reported Reaction Type of Cardiac Device: Permanent Pacemaker Device Placement Date:: 2005 Past Psychological History: Anxiety, Depression Smoking Status: Never smoker Past Alcohol Use History: None Reported Past Drug Use History: None Reported - Past Family History Father Family Medical History: Unable to Obtain Medications and Allergies Home Medications Medication Instructions Recorded Confirmed Type Cholecalciferol [Vitamin D3 (25 50 mcg PO DAILY 09/05/24 10/24/24 History Mcg = 1000 Iu)] Cyclobenzaprine [Flexeril] 10 mg PO Q8H PRN 09/05/24 10/24/24 History DULoxetine HCL [Cymbalta] 60 mg PO BID 09/05/24 10/24/24 History Eszopiclone [Lunesta] 2 mg PO HS PRN 09/05/24 10/24/24 History Lactose-Reduced Food [Ensure Plus 237 ml PO DAILY 09/05/24 10/24/24 History High Protein] Pantoprazole Sodium [Protonix] 20 mg PO DAILY 09/05/24 10/24/24 History Pramipexole [Mirapex] 1 mg PO BID 09/05/24 10/24/24 History Prednisolone Acetate/Pf 1 drop BOTH EYES TID 09/05/24 10/24/24 History [Prednisolone Acet 1% Eye Drop] Rivaroxaban [Xarelto] 20 mg PO DIRECTED 09/05/24 10/24/24 History Solifenacin Succinate [Vesicare] 10 mg PO DAILY 09/05/24 10/24/24 History clonazePAM [KlonoPIN] 1 mg PO DAILY PRN 09/05/24 10/24/24 History traZODone HCL [Desyrel] 50 mg PO HS PRN 09/05/24 10/24/24 History Losartan [Cozaar] 25 mg PO HS 30 Days #30 tab 09/07/24 10/24/24 Rx Pregabalin [Lyrica] 150 mg PO BID 7 Days #14 cap 10/10/24 10/24/24 Rx Semaglutide [Ozempic] 0.25 mg SQ MCCOY 10/24/24 10/24/24 History Allergies Allergy/AdvReac Type Severity Reaction Status Date / Time NSAIDS (Non-Steroidal AdvReac Unknown Verified 10/25/24 19:47 Anti-Inflamma Physical Exam Vitals: Vital Signs Temp Pulse Resp BP Pulse Ox 10/26/24 08:16 72 18 114/68 95 10/26/24 06:16 62 18 117/67 94 L 10/26/24 02:46 77 17 134/90 97 10/26/24 01:05 97.8 F 74 19 130/77 95 10/26/24 00:16 67 17 129/88 96 10/25/24 22:41 73 19 124/66 94 L 10/25/24 20:14 60 19 129/78 94 L 10/25/24 19:40 98.6 F 74 18 125/76 94 L Intake and Output 10/25/24 10/26/24 10/26/24 22:59 06:59 14:59 Output Total 900 Balance -900 Output: Urine 900 Other: Weight 70.76 kg Results CBC & Chem 7: 10/25/24 21:12 10/25/24 21:12 Labs: Abnormal Lab Results - Last 24 Hours (Table) 10/25/24 10/25/24 Range/Units 21:12 21:12 Hgb 11.0 L (13.0-17.5) gm/dL Hct 34.9 L (39.0-53.0) % MCV 79.1 L (80.0-100.0) fL RDW 16.7 H (11.5-15.5) % Sodium 136 L (137-145) mmol/L Carbon Dioxide 21 L (22-30) mmol/L Glucose 100 H (74-99) mg/dL
[2024-10-26 10:05] LABS: Chol/HDL Ratio 2.47 Ratio; LDL Cholesterol,Calculated 69.4 mg/dL (0.0-131.0); VLDL Calculation 14.48 mg/dL (5.00-40.00)
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
--- NOTE | 2024-10-26 10:57 | P.CRDCN ---
History of Present Illness Consult date: 10/26/24 Consult reason: sycope History of present illness: This is Uday Blount NP, I'm dictating on behalf of Dr. Munoz's H&P and A&P The patient was interviewed and examined. HPI: Patient is a pleasant 74-year-old male with a past medical history that includes diabetes mellitus, syncope, long COVID syndrome who presented to the hospital with complaints of syncope. We have seen the patient previously for similar episodes. The last time the patient was here he was started on losartan 25 mg at bedtime to decrease the amount of hypertension that he had in the morning which did decrease successfully his orthostatic hypotension. Patient reports that he has been able to function while he was on this medication, but reports recently he ran out of it and had not had a chance to get it refilled. He states that since that time he has had further syncopal episodes. EKG showed sinus mechanism upon arrival. Heart rate was within normal limits. Morning blood pressure is elevated. Patient this morning is denying chest pain, heart palpitations, shortness of breath, and syncopal feelings. ROS: [No fever, chills, or rigors] [no cough, phlegm, or expectoration] [no nausea, vomiting, or diarrhea] [no hematuria, dysuria] [no musculoskelatal complaints] [no strokes or seizures] [no skin lesions] EXAMINATION: GENERAL: Well-appearing, well-nourished and in no acute distress. NECK: Supple without JVD or thyromegaly. LUNGS: Breath sounds clear to auscultation bilaterally. Respiration equal and unlabored. No wheezes, rales or rhonchi. HEART: Regular rate and rhythm without murmurs, rubs or gallops. S1 and S2 heard. EXTREMITIES: Normal range of motion, no edema. No clubbing or cyanosis. Peripheral pulses intact and strong. REVIEW OF LABS, ECG & MEDICAL DATA: LABS: White count 7.3, hemoglobin 11, platelets 190, sodium 136, potassium 4.6, chloride 107, BUN 11, creatinine 0.69, troponin-less than 0.012 x 3, triglyc erides 72.4, cholesterol 141, LDL 69.4, HDL 57.1 EKG: Sinus mechanism. IMAGING: CT of the brain and C-spine without contrast dated 11/04/2024 demonstrates no acute intracranial process, no evidence of cervical spine fracture, multilevel cervical spine degenerative changes as above. VITALS: Temp 97.8, pulse 74, respirations 19, blood pressure 114/68, O2 saturation 95% on room air IMPRESSION: 1. Orthostatic hypotension 2. Near syncope PLAN: Restart losartan 25 mg at bedtime. Agree that patient's neck pain and syncope may be related. Despite this current episode, the patient reports no syncopal episodes while taking the losartan at bedtime. He should receive at least 3 months worth of this medication. No further recommendations from a cardiology standpoint. Thank you for the consult and allowing us to participate in the care of this patient. Past Medical History Past Medical History: Diabetes Mellitus, Syncope Additional Past Medical History / Comment(s): Long Covid Syndrome History of Any Multi-Drug Resistant Organisms: None Reported Past Surgical History: Pacemaker Additional Past Surgical History / Comment(s): bariatric sx 1998. 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 bowel surgery twisted bowel post op bariatric sx. Past Anesthesia/Blood Transfusion Reactions: No Reported Reaction Type of Cardiac Device: Permanent Pacemaker Device Placement Date:: 2005 Past Psychological History: Anxiety, Depression Smoking Status: Never smoker Past Alcohol Use History: None Reported Past Drug Use History: None Reported - Past Family History Father Family Medical History: Unable to Obtain Medications and Allergies Home Medications Medication Instructions Recorded Confirmed Type Cholecalciferol [Vitamin D3 (25 50 mcg PO DAILY 09/05/24 10/26/24 History Mcg = 1000 Iu)] Cyclobenzaprine [Flexeril] 10 mg PO Q8H PRN 09/05/24 10/26/24 History DULoxetine HCL [Cymbalta] 60 mg PO BID 09/05/24 10/26/24 History Eszopiclone [Lunesta] 2 mg PO HS PRN 09/05/24 10/26/24 History Lactose-Reduced Food [Ensure Plus 237 ml PO DAILY 09/05/24 10/26/24 History High Protein] Pantoprazole Sodium [Protonix] 20 mg PO DAILY 09/05/24 10/26/24 History Pramipexole [Mirapex] 1 mg PO BID 09/05/24 10/26/24 History Prednisolone Acetate/Pf 1 drop BOTH EYES TID 09/05/24 10/26/24 History [Prednisolone Acet 1% Eye Drop] Rivaroxaban [Xarelto] 20 mg PO DIRECTED 09/05/24 10/26/24 History Solifenacin Succinate [Vesicare] 10 mg PO DAILY 09/05/24 10/26/24 History clonazePAM [KlonoPIN] 1 mg PO DAILY PRN 09/05/24 10/26/24 History traZODone HCL [Desyrel] 50 mg PO HS PRN 09/05/24 10/26/24 History Losartan [Cozaar] 25 mg PO HS 30 Days #30 tab 09/07/24 10/26/24 Rx Pregabalin [Lyrica] 150 mg PO BID 7 Days #14 cap 10/10/24 10/26/24 Rx Semaglutide [Ozempic] 0.25 mg SQ MCCOY 10/24/24 10/26/24 History Allergies Allergy/AdvReac Type Severity Reaction Status Date / Time NSAIDS (Non-Steroidal AdvReac Unknown Verified 10/26/24 10:41 Anti-Inflamma Physical Exam Vitals: Vital Signs Temp Pulse Resp BP Pulse Ox 10/26/24 08:16 72 18 114/68 95 10/26/24 06:16 62 18 117/67 94 L 10/26/24 02:46 77 17 134/90 97 10/26/24 01:05 97.8 F 74 19 130/77 95 10/26/24 00:16 67 17 129/88 96 10/25/24 22:41 73 19 124/66 94 L 10/25/24 20:14 60 19 129/78 94 L 10/25/24 19:40 98.6 F 74 18 125/76 94 L Intake and Output 10/25/24 10/26/24 10/26/24 22:59 06:59 14:59 Output Total 900 Balance -900 Output: Urine 900 Other: Weight 70.76 kg Results 10/25/24 21:12 10/25/24 21:12 Cardiac Enzymes 10/25/24 10/25/24 10/26/24 Range/Units 21:12 21:12 00:16 AST 25 (17-59) U/L Troponin I <0.012 <0.012 (0.000-0.034) ng/mL 10/26/24 Range/Units 04:52 AST (17-59) U/L Troponin I <0.012 (0.000-0.034) ng/mL Lipids 10/26/24 Range/Units 04:52 Triglycerides 72.40 (0.00-149.00) mg/dL Cholesterol 141.00 (0.00-200.00) mg/dL HDL Cholesterol 57.10 (40.00-60.00) mg/dL Cholesterol/HDL Ratio 2.47 Ratio CBC 10/25/24 Range/Units 21:12 WBC 7.3 (3.8-10.6) k/uL RBC 4.42 (4.30-5.90) m/uL Hgb 11.0 L (13.0-17.5) gm/dL Hct 34.9 L (39.0-53.0) % Plt Count 190 (150-450) k/uL Comprehensive Metabolic Panel 10/25/24 Range/Units 21:12 Sodium 136 L (137-145) mmol/L Potassium 4.6 (3.5-5.1) mmol/L Chloride 107 (98-107) mmol/L Carbon Dioxide 21 L (22-30) mmol/L BUN 11 (9-20) mg/dL Creatinine 0.69 (0.66-1.25) mg/dL Glucose 100 H (74-99) mg/dL Calcium 9.1 (8.4-10.2) mg/dL AST 25 (17-59) U/L ALT 23 (4-49) U/L Alkaline Phosphatase 105 (38-126) U/L Total Protein 7.2 (6.3-8.2) g/dL Albumin 4.1 (3.5-5.0) g/dL Current Medications Generic Name Dose Route Start Last Admin Trade Name Freq PRN Reason Stop Dose Admin Cholecalciferol 50 mcg 10/26/24 09:00 10/26/24 08:17 Cholecalciferol 25 Mcg (1000 Iu) Tablet PO 50 mcg DAILY SALLY Administration Clonazepam 1 mg 10/25/24 23:16 10/26/24 02:51 Clonazepam 1 Mg Tab PO 1 mg DAILY PRN Administration Anxiety Cyclobenzaprine HCl 10 mg 10/25/24 23:16 Cyclobenzaprine 10 Mg Tab PO Q8H PRN Muscle Spasm Ketorolac Tromethamine 15 mg 10/26/24 09:50 Ketorolac 15 Mg/Ml 1 Ml Vial IVP 10/31/24 09:49 Q6HR PRN Pain Nitroglycerin 0.4 mg 10/25/24 22:57 Nitroglycerin Sl Tabs 0.4 Mg Tab SUBLINGUAL Q5M PRN Chest Pain Pantoprazole Sodium 40 mg 10/26/24 10:00 Pantoprazole 40 Mg/10 Ml Vial IVP DAILY [facility] Pramipexole Dihydrochloride 1 mg 10/26/24 09:00 10/26/24 08:18 Pramipexole 1 Mg Tab PO 1 mg BID SALLY Administration Prednisolone Acetate 1 drops 10/26/24 09:00 10/26/24 08:19 Prednisolone Acetate 1% Ophth Drops 5 Ml Btl BOTH EYES 1 drops TID [facility] Administration Pregabalin 150 mg 10/26/24 09:00 10/26/24 08:18 Pregabalin 75 Mg Cap PO 150 mg BID SALLY Administration Rivaroxaban 20 mg 10/25/24 18:30 10/26/24 00:15 Rivaroxaban 20 Mg Tab PO Not Given PC-SUPPER [facility] Protocol Temazepam 15 mg 10/25/24 23:16 Temazepam 15 Mg Cap PO HS PRN Insomnia Trazodone HCl 50 mg 10/25/24 23:16 Trazodone Hcl 50 Mg Tab PO HS PRN Insomnia Trospium 20 mg 10/26/24 09:00 10/26/24 08:18 Trospium Chloride 20 Mg Tablet PO 20 mg BID SALLY Administration Intake and Output 10/25/24 10/26/24 10/26/24 22:59 06:59 14:59 Output Total 900 Balance -900 Output: Urine 900 Other: Weight 70.76 kg 10/25/24 21:12 10/25/24 21:12
[2024-10-26] MEDS: PANTOPRAZOLE 40 MG/10 ML VIAL IVP SCH (12:05)
[2024-10-26] MEDS: KETOROLAC 15 MG/ML 1 ML VIAL IVP PRN (14:50)
[2024-10-26] MEDS: LOSARTAN 25 MG TAB PO SCH (20:17)
[2024-10-26] MEDS: traZODone HCL 50 MG TAB PO PRN (20:44)
[2024-10-26] MEDS ORDERED: LOSARTAN 25 MG TAB PO SCH (21:00)
[2024-10-27] MEDS: HYDROcodone/APAP 5-325MG 1 EACH TAB PO PRN (01:36)
[2024-10-27 09:05] VITALS: RESP 16
[2024-10-27] MEDS: MECLIZINE 25 MG TAB PO SCH (11:12)
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
--- NOTE | 2024-10-27 12:03 | P.PN ---
Subjective HISTORY OF PRESENT ILLNESS: Patient examined this morning the bedside. Patient currently denies chest pain or pressure. He denies shortness of breath. He continues to report dizziness. Orthostatic blood pressures obtained this morning are negative. PHYSICAL EXAM: VITAL SIGNS: Reviewed. GENERAL: Well-developed in no acute distress. NECK: Supple. No JVD or thyromegaly LUNGS: Respirations even and unlabored. Lungs essentially clear to auscultation bilaterally. HEART: Regular rate and rhythm. S1 and S2 heard. EXTREMITIES: Normal range of motion. No clubbing or cyanosis. Peripheral pulses intact. No lower extremity edema ASSESSMENT: Presyncope History of syncope Supine hypertension History of orthostatic hypotension History of pacemaker implantation History of factor V Leiden deficiency, on Xarelto outpatient PLAN: Continue current cardiac medications Continue losartan 25 mg at night. Patient was taking this prior to coming to the hospital and did not have any episodes of syncope. However he recently ran out of this medication and did not get it refilled. Patient is stable for discharge from a cardiac standpoint Patient to follow up postdischarge in the office with Dr. Alas Nurse practitioner note has been reviewed by physician. Signing provider agrees with the documented findings, assessment, and plan of care documented by STONEWORKING SANDER as a scribe. Objective - Vital Signs Vital signs: Vital Signs Temp 97.4 F L 10/27/24 08:25 Pulse 98 10/27/24 08:25 Resp 16 10/27/24 08:25 BP 155/79 10/27/24 08:25 Pulse Ox 97 10/27/24 09:15 FiO2 21 10/27/24 09:15 Intake & Output 10/26/24 10/27/24 10/27/24 18:59 06:59 18:59 Intake Total 240 Balance 240 Weight 70.76 kg Intake: Oral 240 Other: Voiding Method Toilet # Voids 1 1 1 # Bowel Movements 1 - Labs CBC & Chem 7: 10/25/24 21:12 10/25/24 21:12
--- NOTE | 2024-10-27 16:18 | CT ---
EXAMINATION TYPE: CT angio head neck DATE OF EXAM: 10/27/2024 COMPARISON: None CLINICAL INDICATION: Male, 74 years old with history of dizzines with neck pain; PHH, Dizziness with neck pain. TECHNIQUE: CTA scan of the head and neck is performed with IV Contrast, patient injected with 65 ml mL of Isovue 370, axial images are obtained, coronal and sagittal reformatted images are reviewed. 3D reconstructed images are created on an independent workstation and reviewed. CT DLP: 488.[address] CTDI: mGy Automated exposure control for dose reduction was used. NASCET criteria was used in interpretation of this exam? FINDINGS: Right Carotid System: The common carotid artery and external carotid artery are patent. The carotid bifurcation demonstrate s no evidence of hemodynamically significant stenosis. The remaining portions of the internal carotid artery demonstrate normal size without significant narrowing. Left Carotid System: The common carotid artery and external carotid artery are patent. The carotid bifurcation demonstrate s no evidence of hemodynamically significant stenosis. The remaining portions of the internal carotid artery demonstrate normal size without significant narrowing. Vertebral arteries are patent without evidence hemodynamically significant stenosis. There is a three-vessel aortic arch. The origins of the great vessels are patent. No evidence of hemo dynamically significant stenosis. IMPRESSION: 1. No significant abnormality is seen. 2. No evidence of dissection of the cervical internal carotid arteries or vertebral arteries 3. No evidence of significant stenosis at the carotid bifurcations. [facility], , 10/27/2024 4:16 PM
[2024-10-27 17:14] VITALS: BP 137/76; PULSE 66; TEMP 98.4
--- NOTE | 2024-10-30 16:29 | P.DS ---
Providers Date of admission: 10/25/24 22:59 Attending physician: Unruly Lundberg Consults: 10/25/24 22:57 Consult Physician Routine Consulting Provider: Akhil Valdez Consult Reason/Comments: syncope Do you want consulting provider notified?: Yes 10/25/24 23:16 Consult Physician Routine Consulting Provider: Jean Thomas Consult Reason/Comments: chronic neck pain Do you want consulting provider notified?: Yes 10/26/24 10:31 Consult Physician Routine Consulting Provider: Hernando Stone Consult Reason/Comments: Syncope and vertigo Do you want consulting provider notified?: Yes Primary care physician: Jayson Reilly Hospital Course: Final Diagnosis -Syncope probably secondary to low blood pressure patient already underwent extensive workup in the past will discontinue losartan we will monitor him -Severe cervical degenerative spine disease will order Toradol along with Protonix continue with Lyrica. -As for which patient is on semaglutide weekly -Hypertension patient blood pressure is low normal discontinue losartan -History of vertigo and underwent vestibular rehab in the past which helped per patient. Discharge Disposition He was resumed on all home meds patients. Did recommend for patient to follow- up with an ENT outpatient for possible vestibular rehab. Additionally he was given information for the [facility] pain clinic for possible injections into his neck which he states he has gotten in the past as well. He is given information to follow-up with his still operator whiskey on November 11 additionally will follow-up with his primary care provider in 1 to 2 days. Hospital Course 74-year-old male came in after syncopal episode patient apparently had the syncopal episodes in the past and extensive workup including tilt table test all of which are within normal limits patient takes losartan at home his blood pressure is low normal which I will discontinue. Patient also complaining of severe neck pain and degenerative disc disease and wanted to see a specialist because of which Dr. Gamble photographic specialist was consulted. Patient was given Cymbalta as well patient is on Lyrica as well. Patient does endorse that [place] living [place] of [place] he underwent extensive evaluation for this chronic history of syncope due to dizziness and lightheadedness. His orthostatic blood pressures are currently normal. He was eval by orthopedic surgery photographic specialist and felt this may be a neurological issue. He was evaluated by neurology who ordered a CT angiography which reveals no significant abnormality and no evidence of dissection of the cervical internal carotid arteries or vertebral arteries and no evidence of significant stenosis at the carotid bifurcations. He was given a dose of Antivert while in the hospital and recommended to possibly continue this on discharge if symptoms have improved. Discharge was held for neurological evaluation this was communicated to the patients nurse, however patient was discharged after the CT angiography was completed without follow-up and clearance from the writing provider for discharge. Please see medication reconciliation for a list of current medications. Thank you for allowing us to participate in the care of this patient. The impression and plan of care has been dictated by Azra Stallworth, Nurse Practitioner as directed. Dr. Henrry MD I have performed a history and physical examination and medical decision making of this patient, discussed the same with the dictator, and agree with the dictators assessment and plan as written, documented as a scribe. Based on total visit time, I have performed more than 50% of this visit. Patient Condition at Discharge: Good Plan - Discharge Summary Discharge Rx Participant: Yes New Discharge Prescriptions: Continue Rivaroxaban [Xarelto] 20 mg PO DAILY Lactose-Reduced Food [Ensure Plus High Protein] 237 ml PO DAILY clonazePAM [KlonoPIN] 1 mg PO DAILY PRN PRN Reason: Anxiety Pantoprazole Sodium [Protonix] 20 mg PO DAILY Cyclobenzaprine [Flexeril] 10 mg PO Q8H PRN PRN Reason: Muscle Spasm Semaglutide [Ozempic] 0.25 mg SQ MCCOY Losartan [Cozaar] 25 mg PO HS 90 Days #90 tab Eszopiclone [Lunesta] 2 mg PO HS PRN PRN Reason: Insomnia Cholecalciferol [Vitamin D3 (25 Mcg = 1000 Iu)] 50 mcg PO DAILY traZODone HCL [Desyrel] 50 mg PO HS PRN PRN Reason: Insomnia Solifenacin Succinate [Vesicare] 10 mg PO DAILY Prednisolone Acetate/Pf [Prednisolone Acet 1% Eye Drop] 1 drop BOTH EYES TID Pramipexole [Mirapex] 1 mg PO BID DULoxetine HCL [Cymbalta] 60 mg PO BID Pregabalin [Lyrica] 150 mg PO BID 7 Days #14 cap Discharge Medication List Cholecalciferol [Vitamin D3 (25 Mcg = 1000 Iu)] 50 mcg PO DAILY 09/05/24 [History] Cyclobenzaprine [Flexeril] 10 mg PO Q8H PRN 09/05/24 [History] DULoxetine HCL [Cymbalta] 60 mg PO BID 09/05/24 [History] Eszopiclone [Lunesta] 2 mg PO HS PRN 09/05/24 [History] Lactose-Reduced Food [Ensure Plus High Protein] 237 ml PO DAILY 09/05/24 [History] Pantoprazole Sodium [Protonix] 20 mg PO DAILY 09/05/24 [History] Pramipexole [Mirapex] 1 mg PO BID 09/05/24 [History] Prednisolone Acetate/Pf [Prednisolone Acet 1% Eye Drop] 1 drop BOTH EYES TID 09/05/24 [History] Rivaroxaban [Xarelto] 20 mg PO DAILY 09/05/24 [History] Solifenacin Succinate [Vesicare] 10 mg PO DAILY 09/05/24 [History] clonazePAM [KlonoPIN] 1 mg PO DAILY PRN 09/05/24 [History] traZODone HCL [Desyrel] 50 mg PO HS PRN 09/05/24 [History] Pregabalin [Lyrica] 150 mg PO BID 7 Days #14 cap 10/10/24 [Rx] Semaglutide [Ozempic] 0.25 mg SQ MCCOY 10/24/24 [History] Losartan [Cozaar] 25 mg PO HS 90 Days #90 tab 10/27/24 [Rx] Follow up Appointment(s)/Referral(s): Eduard Munoz MD [STAFF PHYSICIAN] - 11/11/24 2:45 pm Jean Thomas DO [Doctor of Osteopathic Medicine] - 11/03/24 10:30 am Jayson Reilly MD [Primary Care Provider] - 1-2 days Pain Clinic,[facility] [NON-STAFF] - 1 Week Uday Zuluaga MD [STAFF PHYSICIAN] - 1 Week Patient Instructions/Handouts: Syncope (ED) Activity/Diet/Wound Care/Special Instructions: FOLLOW UP DIRECTED, SOONER FOR WORSENING SYMPTOMS, PROBLEMS, OR CONCERNS. Discharge Disposition: HOME SELF-CARE
== END 2024-10-27 18:49 | disposition home or self-care (01) ==
LOC: EC 19:38 → 6NMEDSUR 22:59
PROVIDERS: ADMIT Internal Medicine; ATTEND Internal Medicine
DX: R55 Syncope and collapse (principal); R42 Dizziness and giddiness; M50.30 Other cervical disc degeneration, unspecified cervical region; I10 Essential (primary) hypertension; D68.2 Hereditary deficiency of other clotting factors; F32.9 Major depressive disorder, single episode, unspecified; F41.9 Anxiety disorder, unspecified; G89.29 Other chronic pain; E11.9 Type 2 diabetes mellitus without complications; Z79.01 Long term (current) use of anticoagulants; Z88.6 Allergy status to analgesic agent; Z79.899 Other long term (current) drug therapy; Z79.85 Long-term (current) use of injectable non-insulin antidiabetic drugs; Z91.81 History of falling; Z95.0 Presence of cardiac pacemaker; W18.30XA Fall on same level, unspecified, initial encounter; Z88.5 Allergy status to narcotic agent
CPT/HCPCS: 96376 ×2; 96375 ×2; 96374; 99285; 36415; 94760; 93005; 97161; 80061; 80053; 84484 ×2; 85025; 72125; 70496; 70450; 70498; G0378 ×3; L0120; J2270; J1200; J1885 ×2; Q9967; J2470 ×2

== ENCOUNTER 2024-12-09 11:54 | Inpatient (IN) | payer MEDICARE ==
[2024-12-09] MEDS: methylPREDNISolone SOD SUCCI 125 MG/2 ML VIAL IV STA (13:00)
[2024-12-09 13:02] LABS: Anisocytosis Moderate; Basophils % (A) 1 %; Eosinophils % (A) 1 %; HCT 34.9 % (39.0-53.0); HGB 11.1 gm/dL (13.0-17.5); Lymphocytes # (A) 0.4 k/uL (1.0-4.8); Lymphocytes % (A) 6 %; MCH 25.8 pg (25.0-35.0); MCHC 31.7 g/dL (31.0-37.0); MCV 81.4 fL (80.0-100.0); Mean Platelet Volume 8.9; Microcytosis Slight; Monocytes # (A) 0.4 k/uL (0-1.0); Monocytes % (A) 6 %; Neutrophils # (A) 5.6 k/uL (1.3-7.7); Neutrophils % (A) 86 %; Platelet Count 155 k/uL (150-450); RBC 4.29 m/uL (4.30-5.90); RDW 20.3 % (11.5-15.5); WBC 6.5 k/uL (3.8-10.6)
[2024-12-09] MEDS: SODIUM CHLORIDE 0.9% 1,000 ML IV STA ×2 (13:02→14:30)
[2024-12-09 13:21] LABS: INR 1.1 (<1.2); Partial Thromboplastin Time 26.2 sec (22.0-30.0); Prothrombin Time 12.3 sec (10.0-12.5)
--- NOTE | 2024-12-09 13:33 | XR ---
EXAMINATION TYPE: XR chest 2V DATE OF EXAM: 12/09/2024 1:26 PM COMPARISON: Chest radiographs from TECHNIQUE: XR chest 2V Frontal and lateral views of the chest. CLINICAL INDICATION:Male, 74 years old with history of difficulty breathing; FINDINGS: Patient is rotated which limits evaluation. Lungs/Pleura: There is no evidence of pleural effusion, focal consolidation, or pneumothorax. Pulmonary vascularity: Unremarkable. Heart/mediastinum: Cardiomediastinal silhouette is prominent in size. Two lead cardiac conduction dev ice overlying the left hemithorax with lead tips projecting over the right ventricle and right atrium . Musculoskeletal: Multiple level degenerative disc disease changes seen throughout the spine. IMPRESSION: No acute cardiopulmonary disease/process. [facility], , 12/09/2024 1:31 PM
[2024-12-09 13:37] LABS: Influenza A Detected (Not Detectd); Influenza B Not Detected (Not Detectd); RSV Not Detected (Not Detectd)
[2024-12-09 13:45] LABS: ALT 30 U/L (4-49); AST 37 U/L (17-59); African American GFR (CKD) >90 (>60 ml/min/1.73 sqM); Albumin 3.9 g/dL (3.5-5.0); Alkaline Phosphatase 94 U/L (38-126); Anion Gap 8 mmol/L; Blood Urea Nitrogen 13 mg/dL (9-20); Calcium 8.8 mg/dL (8.4-10.2); Carbon Dioxide 26 mmol/L (22-30); Chloride 97 mmol/L (98-107); Glucose 123 mg/dL (74-99); Magnesium 1.7 mg/dL (1.6-2.3); Non-African American GFR(CKD) 80 (>60 ml/min/1.73 sqM); Potassium 4.3 mmol/L (3.5-5.1); Sodium 131 mmol/L (137-145); Total Bilirubin 0.9 mg/dL (0.2-1.3); Total Protein 6.8 g/dL (6.3-8.2)
[2024-12-09] MEDS ORDERED: NALOXONE 0.4 MG/ML 1 ML VIAL IV PRN (14:04)
[2024-12-09] MEDS ORDERED: ONDANSETRON 4 MG/2 ML VIAL IVP PRN (14:04)
--- NOTE | 2024-12-09 14:04 | ED ---
General Adult HPI - General Chief complaint: Shortness of Breath Stated complaint: SOB,headache Time Seen by Provider: 12/09/24 12:20 Source: patient, RN notes reviewed, old records reviewed Mode of arrival: ambulatory Limitations: no limitations - History of Present Illness Initial comments: Patient is a 74-year-old male who presents emergency department complaining of cough, LALITA. Has been ongoing for 1 day. Has a history of diabetes, has a pacemaker in place. Denies any significant fevers. Denies nausea vomiting diarrhea. Endorses a cough that is nonproductive but he feels like he has chest congestion. Endorses generalized bodyaches and mild headache. Denies any significant fevers or sick contacts. Presents for further evaluation. Never smoker. - Related Data Home Medications Medication Instructions Recorded Confirmed Cholecalciferol [Vitamin D3 (25 50 mcg PO DAILY 09/05/24 11/27/24 Mcg = 1000 Iu)] Cyclobenzaprine [Flexeril] 10 mg PO Q8H PRN 09/05/24 11/27/24 DULoxetine HCL [Cymbalta] 60 mg PO BID 09/05/24 11/27/24 Eszopiclone [Lunesta] 2 mg PO HS PRN 09/05/24 11/27/24 Lactose-Reduced Food [Ensure Plus 237 ml PO DAILY 09/05/24 11/27/24 High Protein] Pantoprazole Sodium [Protonix] 20 mg PO DAILY 09/05/24 11/27/24 Pramipexole [Mirapex] 1 mg PO BID 09/05/24 11/27/24 Prednisolone Acetate/Pf 1 drop BOTH EYES TID 09/05/24 11/27/24 [Prednisolone Acet 1% Eye Drop] Rivaroxaban [Xarelto] 20 mg PO DAILY 09/05/24 11/27/24 Solifenacin Succinate [Vesicare] 10 mg PO DAILY 09/05/24 11/27/24 clonazePAM [KlonoPIN] 1 mg PO DAILY PRN 09/05/24 11/27/24 traZODone HCL [Desyrel] 50 mg PO HS PRN 09/05/24 11/27/24 Semaglutide [Ozempic] 0.25 mg SQ MCCOY 10/24/24 11/27/24 Previous Rx's Medication Instructions Recorded Pregabalin [Lyrica] 150 mg PO BID 7 Days #14 cap 10/10/24 Losartan [Cozaar] 25 mg PO HS 90 Days #90 tab 10/27/24 Allergies Allergy/AdvReac Type Severity Reaction Status Date / Time NSAIDS (Non-Steroidal Allergy Unknown Verified 12/09/24 14:24 Anti-Inflamma morphine AdvReac Itching Verified 12/09/24 14:24 Review of Systems ROS Statement: Those systems with pertinent positive or pertinent negative responses have been documented in the HPI. Review of Systems: CONST: Denies fever EYES: Denies blurry vision ENT: Denies nasal congestion C/V: Denies Chest pain RESP: Endorses cough, congestion GI: Denies abdominal pain : Denies dysuria SKIN: Denies rash. MSK: Denies joint pain. NEURO: Denies headache ROS Other: All systems not noted in ROS Statement are negative. Past Medical History Past Medical History: Diabetes Mellitus, Syncope Additional Past Medical History / Comment(s): Long Covid Syndrome History of Any Multi-Drug Resistant Organisms: None Reported Past Surgical History: Pacemaker Additional Past Surgical History / Comment(s): bariatric sx 1998. 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 bowel surgery twisted bowel post op bariatric sx. Past Anesthesia/Blood Transfusion Reactions: No Reported Reaction Type of Cardiac Device: Permanent Pacemaker Device Placement Date:: 2005 Past Psychological History: Anxiety, Depression Smoking Status: Never smoker Past Alcohol Use History: None Reported Past Drug Use History: None Reported - Past Family History Father Family Medical History: Unable to Obtain General Exam - General Exam Comments Initial Comments: General: Appears uncomfortable. Afebrile. HEAD: Normal with no signs of head trauma. EYES: PERRLA, EOMI, conjunctiva normal, no discharge. ENT: Hearing grossly intact, normal oropharynx. RESPIRATORY: Coarse breath sounds bilaterally. No hypoxia. No significant increased work of breathing. C/V: Regular rate and rhythm. S1 and S2 auscultated, no edema, peripheral pulses 2+ and intact throughout ABD: Abd is soft, nontender, nondistended EXT: No obvious deformity. SKIN: No rashes or lesions observed on exposed skin. NEURO: Alert and oriented x 4. Limitations: no limitations Course Vital Signs 12/09/24 12/09/24 12/09/24 11:55 12:09 12:12 Temperature 98.4 F 99.1 F Pulse Rate 85 63 Respiratory 24 20 24 Rate Blood Pressure 107/68 118/75 O2 Sat by Pulse 95 96 Oximetry 12/09/24 12/09/24 14:09 14:17 Temperature Pulse Rate 82 81 Respiratory Rate Blood Pressure O2 Sat by Pulse Oximetry Medical Decision Making - Medical Decision Making Was pt. sent in by a medical professional or institution (, FREDI, [employer], urgent care, hospital, or assisted...) When possible be specific @ -No Did you speak to anyone other than the patient for history (EMS, parent, family, police, friend...)? What history was obtained from this source @ -No Did you review nursing and triage notes (agree or disagree)? Why? @ -I reviewed and agree with nursing and triage notes Were old charts reviewed (outside hosp., previous admission, EMS record, old EKG, old radiological studies, urgent care reports/EKG's, assisted records)? Report findings @ -No old charts were reviewed Differential Diagnosis (chest pain, altered mental status, abdominal pain women, abdominal pain men, vaginal bleeding, weakness, fever, dyspnea, syncope, headache, dizziness, GI bleed, back pain, seizure, CVA, palpatations, mental health, musculoskeletal)? @ -COVID, flu, RSV, pneumonia. This list is not all inclusive. EKG interpreted by me (3pts min.). @ -As above X-rays interpreted by me (1pt min.). @ -Chest x-ray reveals no obvious acute cardiopulmonary process. CT interpreted by me (1pt min.). @ -None done U/S interpreted by me (1pt. min.). @ -None done What testing was considered but not performed or refused? (CT, X-rays, U/S, labs)? Why? @ -None What meds were considered but not given or refused? Why? @ -None Did you discuss the management of the patient with other professionals (professionals i.e. FREDI Gonzalez, [employer]PERVISOR, lab, RT, psych nurse, perinatal social worker, all source analyst, teacher, youth corrections officer, onsite case manager)? Give summary @ -Yes, spoke with admitting provider Dr. Yoon who accepted the admission. Was smoking cessation discussed for >3mins.? @ -No Was critical care preformed (if so, how long)? @ -No Were there social determinants of health that impacted care today? How? (Homelessness, low income, unemployed, alcoholism, drug addiction, transportation, low edu. Level, literacy, decrease access to med. care, custodial, rehab)? @ -No Was there de-escalation of care discussed even if they declined (Discuss DNR or withdrawal of care, Hospice)? DNR status @ -No What co-morbidities impacted this encounter? (DM, HTN, Smoking, COPD, CAD, Cancer, CVA, ARF, Chemo, Hep., AIDS, mental health diagnosis, sleep apnea, morbid obesity)? @ -None Was patient admitted / discharged? Hospital course, mention meds given and route, prescriptions, significant lab abnormalities, going to OR and other pertinent info. @ -Based on patient's presentation and physical exam, presents with URI symptoms. Will obtain respiratory infectious workup as well as screening EKG. Patient was in agreement this plan. Patient administered IV fluids, Tylenol, Toradol, Solu-Medrol, breathing treatment. He was in agreement this plan. Initial vital signs show the patient is afebrile. ED EKG shows no signs of acute ischemia. Chest x-ray unremarkable. Labs remarkable for chronic anemia which is stable. Patient is positive for influenza A. On reevaluation, patient states he still feels miserable. No significant hypoxia as patient is typically 94 to 95% on room air. Discussed with the patient he will be admitted for monitoring. We will start Tamiflu. We will start maintenance fluids. Patient was in agreement this plan. I spoke with the admitting provider, Dr. Yoon who accepted the admission. Undiagnosed new problem with uncertain prognosis? @ -No Drug Therapy requiring intensive monitoring for toxicity (Heparin, Nitro, Insulin, Cardizem)? @ -No Were any procedures done? @ -No Diagnosis/symptom? @ -Influenza A infection, weakness Acute, or Chronic, or Acute on Chronic? @ -Acute Uncomplicated (without systemic symptoms) or Complicated (systemic symptoms)? @ -Complicated Side effects of treatment? @ -No Exacerbation, Progression, or Severe Exacerbation? @ -No Poses a threat to life or bodily function? How? (Chest pain, USA, ID, pneumonia, PE, COPD, DKA, ARF, appy, cholecystitis, CVA, Diverticulitis, Homicidal, Suicid al, threat to staff... and all critical care pts) @ -Yes - Lab Data Result diagrams: 12/09/24 12:55 12/09/24 12:55 Lab Results 12/09/24 12/09/24 12/09/24 Range/Units 12:55 12:55 12:55 WBC 6.5 (3.8-10.6) k/uL RBC 4.29 L (4.30-5.90) m/uL Hgb 11.1 L (13.0-17.5) gm/dL Hct 34.9 L (39.0-53.0) % MCV 81.4 (80.0-100.0) fL MCH 25.8 (25.0-35.0) pg MCHC 31.7 (31.0-37.0) g/dL RDW 20.3 H (11.5-15.5) % Plt Count 155 (150-450) k/uL MPV 8.9 Neutrophils % 86 % Lymphocytes % 6 % Monocytes % 6 % Eosinophils % 1 % Basophils % 1 % Neutrophils # 5.6 (1.3-7.7) k/uL Lymphocytes # 0.4 L (1.0-4.8) k/uL Monocytes # 0.4 (0-1.0) k/uL Eosinophils # 0.0 (0-0.7) k/uL Basophils # 0.0 (0-0.2) k/uL Anisocytosis Moderate Microcytosis Slight PT 12.3 (10.0-12.5) sec INR 1.1 (<1.2) APTT 26.2 (22.0-30.0) sec Sodium 131 L (137-145) mmol/L Potassium 4.3 (3.5-5.1) mmol/L Chloride 97 L (98-107) mmol/L Carbon Dioxide 26 (22-30) mmol/L Anion Gap 8 mmol/L BUN 13 (9-20) mg/dL Creatinine 0.95 (0.66-1.25) mg/dL Est GFR (CKD-EPI)AfAm >90 (>60 ml/min/1.73 sqM) Est GFR (CKD-EPI)NonAf 80 (>60 ml/min/1.73 sqM) Glucose 123 H (74-99) mg/dL Plasma Lactic Acid Joshua (0.7-2.0) mmol/L Calcium 8.8 (8.4-10.2) mg/dL Magnesium 1.7 (1.6-2.3) mg/dL Total Bilirubin 0.9 (0.2-1.3) mg/dL AST 37 (17-59) U/L ALT 30 (4-49) U/L Alkaline Phosphatase 94 (38-126) U/L Total Protein 6.8 (6.3-8.2) g/dL Albumin 3.9 (3.5-5.0) g/dL Influenza Type A (PCR) (Not Detectd) Influenza Type B (PCR) (Not Detectd) RSV (PCR) (Not Detectd) SARS-CoV-2 (PCR) (Not Detectd) 12/09/24 12/09/24 Range/Units 12:55 12:55 WBC (3.8-10.6) k/uL RBC (4.30-5.90) m/uL Hgb (13.0-17.5) gm/dL Hct (39.0-53.0) % MCV (80.0-100.0) fL MCH (25.0-35.0) pg MCHC (31.0-37.0) g/dL RDW (11.5-15.5) % Plt Count (150-450) k/uL MPV Neutrophils % % Lymphocytes % % Monocytes % % Eosinophils % % Basophils % % Neutrophils # (1.3-7.7) k/uL Lymphocytes # (1.0-4.8) k/uL Monocytes # (0-1.0) k/uL Eosinophils # (0-0.7) k/uL Basophils # (0-0.2) k/uL Anisocytosis Microcytosis PT (10.0-12.5) sec INR (<1.2) APTT (22.0-30.0) sec Sodium (137-145) mmol/L Potassium (3.5-5.1) mmol/L Chloride (98-107) mmol/L Carbon Dioxide (22-30) mmol/L Anion Gap mmol/L BUN (9-20) mg/dL Creatinine (0.66-1.25) mg/dL Est GFR (CKD-EPI)AfAm (>60 ml/min/1.73 sqM) Est GFR (CKD-EPI)NonAf (>60 ml/min/1.73 sqM) Glucose (74-99) mg/dL Plasma Lactic Acid Joshua 1.2 (0.7-2.0) mmol/L Calcium (8.4-10.2) mg/dL Magnesium (1.6-2.3) mg/dL Total Bilirubin (0.2-1.3) mg/dL AST (17-59) U/L ALT (4-49) U/L Alkaline Phosphatase (38-126) U/L Total Protein (6.3-8.2) g/dL Albumin (3.5-5.0) g/dL Influenza Type A (PCR) Detected A (Not Detectd) Influenza Type B (PCR) Not Detected (Not Detectd) RSV (PCR) Not Detected (Not Detectd) SARS-CoV-2 (PCR) Not Detected (Not Detectd) - EKG Data -: EKG Interpreted by Me EKG Comments: 12-lead Electrocardiogram Interpretation Note EKG was reviewed and interpreted by myself. 12-lead ECG performed at 1207 is interpreted by me as revealing atrial paced rhythm at a rate of 70 beats per minute. [place] is normal. MD interval is 176 ms, QRS duration is 119 ms, QTc is 391 ms.. There were no ST or T wave abnormalities to suggest myocardial ischemia or injury. R wave progression across the precordium was satisfactory. By my interpretation this EKG is non-diagnostic for acute ischemia. Disposition Clinical Impression: Weakness, Influenza A Disposition: ADMITTED IP TO THIS HOSP Condition: Stable Referrals: Jayson Reilly MD [Primary Care Provider] - 1-2 days Time of Disposition: 14:00
[2024-12-09] MEDS: IPRATROPIUM-ALBUTEROL 3 ML NEB INHALATION STA (14:09)
[2024-12-09] MEDS: OSELTAMIVIR 75 MG CAP PO SCH (14:27)
[2024-12-09] MEDS: KETOROLAC 15 MG/ML 1 ML VIAL IVP STA (14:28)
[2024-12-09] MEDS: ACETAMINOPHEN TAB 500 MG TAB PO STA (14:28)
[2024-12-09] MEDS ORDERED: DEXTROSE 50% SYRINGE 50 ML IVP PRN ×2 (15:38)
[2024-12-09] MEDS ORDERED: traZODone HCL 50 MG TAB PO PRN (15:38)
[2024-12-09] MEDS: SODIUM CHLORIDE 0.9% 1,000 ML IV SCH (15:58)
[2024-12-09] MEDS: methylPREDNISolone SOD SUCCI 40 MG/ML 1 ML VIAL IV SCH (15:58)
[2024-12-09] MEDS: IPRATROPIUM-ALBUTEROL 3 ML NEB INHALATION SCH (16:02)
[2024-12-09 16:23] LABS: Glucose,Whole Blood 275 mg/dL (70-110)
[2024-12-09 17:08] LABS: Glucose,Whole Blood 291 mg/dL (70-110)
[2024-12-09] MEDS: INSULIN ASPART (NovoLOG) 100 UNIT/ML VIAL SQ SCH (17:16)
[2024-12-09] MEDS: HYDROmorphone 0.5 MG/0.5 ML SYRINGE IVP STA (17:36)
[2024-12-09 18:12] LABS: Appearance,Urine Cloudy (Clear); Bacteria,Urine Moderate /hpf; Bilirubin,Urine Negative (Negative); Blood,Urine Negative (Negative); Color,Urine Light Yellow; Glucose,Urine (UA) 3+ (Negative); Ketones,Urine Negative (Negative); Leukocyte Esterase,Urine Large (Negative); Mucus,Urine Rare /hpf; Nitrite,Urine Positive (Negative); PH, Urine 5.5 (5.0-8.0); Protein,Urine Negative (Negative); RBC,Urine 6 /hpf (0-5); Specific Gravity,Urine 1.009 (1.001-1.035); Urobilinogen,Urine <2.0 mg/dL (<2.0); WBC,Urine 94 /hpf (0-5)
[2024-12-09 21:06] LABS: Glucose,Whole Blood 269 mg/dL (70-110)
[2024-12-09] MEDS: LOSARTAN 25 MG TAB PO SCH (21:11)
[2024-12-09] MEDS: DULoxetine HCL 60 MG CAPSULE.DR PO SCH (21:11)
[2024-12-09] MEDS: prednisoLONE ACETATE 1% OPHTH DROPS 5 ML BTL BOTH EYES SCH (21:12)
[2024-12-09] MEDS: PRAMIPEXOLE 1 MG TAB PO SCH (21:12)
[2024-12-09] MEDS: PREGABALIN 75 MG CAP PO SCH (21:12)
[2024-12-09] MEDS: ACETAMINOPHEN TAB 325 MG TAB PO PRN (21:13)
[2024-12-09] MEDS: TEMAZEPAM 15 MG CAP PO PRN (21:16)
[2024-12-10] MEDS: BUTALB/APAP/CAFF 50-325-40MG TAB PO PRN (02:20)
[2024-12-10] MEDS: clonazePAM 0.5 MG TAB PO PRN (02:20)
--- NOTE | 2024-12-10 02:57 | HP ---
HISTORY AND PHYSICAL CHIEF COMPLAINT: Shortness of breath, weakness, and cough. HISTORY OF PRESENT ILLNESS: This 74-year-old gentleman with a past medical history of multiple medical problems including diabetes with syncope, has recently moved to [place] from [place], [place]. The patient is not taking flu shot this year. The patient is complaining of cough, sputum ongoing for 1 day and the patient came to [facility] and influenza A was positive. The patient is admitted for further evaluation and treatment. There is no history of any fever, rigors, or chills at this time. PAST MEDICAL HISTORY: Diabetes mellitus, syncope, long COVID syndrome. Otherwise, rest of the history and rest of the chart is also reviewed. HOME MEDICATIONS: Reviewed include Klonopin. Doses and rest of medications reviewed. ALLERGIES: NSAIDs. FAMILY HISTORY: Unable to obtain. SOCIAL HISTORY: No history of smoking or alcohol. REVIEW OF SYSTEMS: Fourteen-point review of systems is negative except as mentioned earlier. PHYSICAL EXAMINATION: VITAL SIGNS: Pulse is 89, blood pressure 119/60, respirations 18, and temperature 101.8. HEENT: Conjunctivae normal. NECK: No JVD. CARDIOVASCULAR: S1, S2. RESPIRATIONS: Breath sounds diminished at the bases. A few scattered rhonchi. ABDOMEN: Soft, nontender. NERVOUS SYSTEM: Nonfocal. LABORATORY DATA: WBC 6.8. Hemoglobin 11.1. IMAGING DATA: Chest x-ray reviewed personally showed increased bronchovascular markings. ASSESSMENT: 1. Acute influenza A with dehydration and fever. 2. Rule out acute pain tracheobronchitis of pneumonia. 3. Diabetes mellitus type 2. 4. Long COVID syndrome history. 5. History of bariatric surgery. 6. Anxiety, depression. RECOMMENDATIONS AND DISCUSSION: This 74-year-old gentleman presented with multiple complex medical issues. We will monitor the patient closely. Continue the current medications, continue symptomatic treatment. Recommend bronchodilators, Tamiflu. Otherwise, I would also recommend a D- dimer and procalcitonin. The patient might benefit from a short course of antibiotics because of the long COVID and chest x-ray abnormalities. We will continue to monitor this. Prognosis extremely guarded. Discussed with family. Further recommendations to follow. MMODL / IJN: [id number] /
[2024-12-10 06:14] LABS: Glucose,Whole Blood 195 mg/dL (70-110)
[2024-12-10] MEDS: PANTOPRAZOLE 40 MG TABLET PO SCH (06:51)
[2024-12-10] MEDS: TROSPIUM CHLORIDE 20 MG TABLET PO SCH (08:04)
[2024-12-10] MEDS: CHOLECALCIFEROL 25 MCG (1000 IU) TABLET PO SCH (08:04)
[2024-12-10] MEDS: RIVAROXABAN 20 MG TAB PO SCH (08:04)
[2024-12-10 08:43] LABS: ALT 29 U/L (10-49); AST 38 U/L (14-35); Albumin 3.6 g/dL (3.8-4.9); Alkaline Phosphatase 86 U/L (41-126); BUN/Creat Ratio 12.75 Ratio (12.00-20.00); Blood Urea Nitrogen 10.2 mg/dL (9.0-27.0); Calcium 8.3 mg/dL (8.7-10.3); Carbon Dioxide 20.3 mmol/L (21.6-31.8); Chloride 100 mmol/L (96-109); Globulin 2.4 g/dL (1.6-3.3); Glucose 189 mg/dL (70-110); Potassium 4.3 mmol/L (3.5-5.5); Sodium 130 mmol/L (135-145); Total Bilirubin 0.4 mg/dL (0.3-1.2)
[2024-12-10 08:54] LABS: Basophils # (A) 0.01 X 10*3/uL (0.00-0.10); Basophils % (A) 0.1 %; Eosinophils # (A) 0 X 10*3/uL (0.04-0.35); Eosinophils % (A) 0 %; HCT 31.2 % (39.6-50.0); HGB 9.7 g/dL (13.0-17.0); Lymphocytes # (A) 0.21 X 10*3/uL (0.90-5.00); Lymphocytes % (A) 2.9 %; MCH 25.6 pg (27.0-32.0); MCHC 31.1 g/dL (32.0-37.0); MCV 82.3 FL (80.0-97.0); Mean Platelet Volume 11.5 FL (9.5-12.2); Monocytes # (A) 0.31 X 10*3/uL (0.20-1.00); Monocytes % (A) 4.3 %; NRBC Per 100 WBC 0 X 10*3/uL (0.00-0.01); Neutrophils # (A) 6.57 X 10*3/uL (1.80-7.70); Neutrophils % (A) 92.3 %; Platelet Count 146 X 10*3/uL (140-440); RBC 3.79 X 10*6/uL (4.40-5.60); WBC 7.13 X 10*3/uL (4.50-10.00)
[2024-12-10] MEDS ORDERED: LACTOSE REDUCED FOOD PO SCH (09:00)
[2024-12-10 11:56] LABS: Glucose,Whole Blood 241 mg/dL (70-110)
[2024-12-10] MEDS: HYDROmorphone 0.5 MG/0.5 ML SYRINGE IVP PRN (12:21)
[2024-12-10] MEDS: Acetaminophen-Codeine 300-30mg TAB PO PRN (14:43)
--- NOTE | 2024-12-10 16:29 | CT ---
EXAMINATION TYPE: CT angio chest DATE OF EXAM: 12/10/2024 COMPARISON: None CLINICAL INDICATION: Male, 74 years old with history of pe; PHH, LALITA TECHNIQUE: CTA scan of the thorax is performed with IV Contrast, patient injected with 65 mL of Isovue 370, pulm onary embolism protocol. MIP images are created and reviewed. CT DLP: 280.[address] CTDI: mGy Automated exposure control for dose reduction was used. FINDINGS: There is a partially consolidative opacity in the left lower lobe posteriorly. There is diffuse perib ronchial cuffing in the lower lobes bilaterally. The trachea and bronchi are patulous. There is a 16 mm subcarinal lymph node is a 16 mm right hilar lymph node. There is no pleural effusion or pneumothorax. There are no filling defects within the pulmonary arterial circulation to suggest pulmonary embolism. The great vessels and heart are normal in size. Limited scanning through the upper abdomen reveals postsurgical changes at the GE junction. The gallb ladder is prominent in size. No focal osseous lesions are seen. IMPRESSION: 1. No evidence of pulmonary embolism. 2. Findings suggest acute bronchopneumonia with left lower lobe partially consolidated infiltrate and peribronchial cuffing in the lower lobes bilaterally. In addition, there is right hilar and mediast inal adenopathy as described. 3. Prominent gallbladder. 4. Post surgical changes at the GE junction. [facility], , 12/10/2024 4:27 PM
[2024-12-10 17:20] LABS: Glucose,Whole Blood 154 mg/dL (70-110)
[2024-12-10 20:58] LABS: Glucose,Whole Blood 174 mg/dL (70-110)
[2024-12-10] MEDS: INSULIN DETEMIR (LEVEMIR) 100 UNIT/ML SYR SQ SCH (22:03)
--- NOTE | 2024-12-10 22:55 | PN ---
PROGRESS NOTE DATE OF SERVICE: 12/10/2024 SUBJECTIVE: This is a 74-year-old gentleman, who was admitted with acute influenza A, dehydration, and fever, is being closely monitored at this time. The patient also is complaining of severe headache. No chest pain. No palpitation. OBJECTIVE: VITAL SIGNS: Pulse is 86, blood pressure 142/70, respirations 18, temperature 101. HEENT: Conjunctivae normal. NECK: No JVD. CARDIOVASCULAR: S1, S2. RESPIRATIONS: Breath sounds diminished at the bases. A few scattered rhonchi. ABDOMEN: Soft. NERVOUS SYSTEM: Nonfocal. LABORATORY DATA: Reviewed. UA reviewed. ASSESSMENT: 1. Acute influenza A with dehydration and fever. 2. Rule out acute tracheobronchitis or pneumonia. 3. Acute urinary tract infection, possibly. 4. Severe headaches. 5. Diabetes mellitus, type 2. 6. Long COVID syndrome. 7. History of bariatric surgery. 8. Anxiety, depression. RECOMMENDATIONS AND DISCUSSION: Recommend to continue current medications and continue symptomatic treatment. Otherwise, Tylenol #3. Monitor blood sugars closely. Otherwise, I would also recommend cultures, steroids. Recommend empiric antibiotics and obtain serum ProCal. D-dimer is elevated. I would also recommend a CT angio of the chest also. Prognosis guarded. Further recommendations to follow. MMODL / IJN: [id number] /
[2024-12-11 06:25] LABS: Glucose,Whole Blood 187 mg/dL (70-110)
[2024-12-11 08:23] VITALS: BP 154/84; RESP 16; TEMP 97.6
[2024-12-11 09:57] LABS: Basophils # (A) 0.01 X 10*3/uL (0.00-0.10); Basophils % (A) 0.1 %; Eosinophils # (A) 0 X 10*3/uL (0.04-0.35); Eosinophils % (A) 0 %; HGB 11.8 g/dL (13.0-17.0); Lymphocytes # (A) 0.37 X 10*3/uL (0.90-5.00); Lymphocytes % (A) 3.1 %; MCH 25.3 pg (27.0-32.0); MCHC 31.1 g/dL (32.0-37.0); MCV 81.5 FL (80.0-97.0); Mean Platelet Volume 10.7 FL (9.5-12.2); Monocytes # (A) 0.21 X 10*3/uL (0.20-1.00); Monocytes % (A) 1.8 %; NRBC Per 100 WBC 0 X 10*3/uL (0.00-0.01); Neutrophils # (A) 11.26 X 10*3/uL (1.80-7.70); Neutrophils % (A) 94.6 %; Platelet Count 159 X 10*3/uL (140-440); RBC 4.66 X 10*6/uL (4.40-5.60)
[2024-12-11 11:07] LABS: ALT 39 U/L (10-49); AST 79 U/L (14-35); Albumin 3.7 g/dL (3.8-4.9); Albumin/Globulin Ratio 1.28 Ratio (1.60-3.17); Alkaline Phosphatase 86 U/L (41-126); BUN/Creat Ratio 15.62 Ratio (12.00-20.00); Blood Urea Nitrogen 12.5 mg/dL (9.0-27.0); Carbon Dioxide 24.1 mmol/L (21.6-31.8); Chloride 102 mmol/L (96-109); Globulin 2.9 g/dL (1.6-3.3); Glucose 180 mg/dL (70-110); Potassium 4.7 mmol/L (3.5-5.5); Sodium 136 mmol/L (135-145); Total Bilirubin 0.4 mg/dL (0.3-1.2); Total Protein 6.6 g/dL (6.2-8.2)
[2024-12-11 11:51] LABS: Glucose,Whole Blood 168 mg/dL (70-110)
[2024-12-11 12:09] VITALS: PULSE 78
--- NOTE | 2024-12-11 14:03 | P.DS ---
Providers Date of admission: 12/09/24 14:48 Expected date of discharge: 12/11/24 Attending physician: Joe Yoon Primary care physician: Jayson Reilly Hospital Course: Discharge diagnoses; Acute influenza A infection Tracheobronchitis Severe headaches Diabetes mellitus Anxiety Depression Hospital course; Patient is a 74-year-old male who presents emergency department complaining of cough, LALITA. Has been ongoing for 1 day. Patient was found to have influenza, started on Tamiflu. CT chest done showed no PE, findings suggestive of acute bronchopneumonia with left lower lobe partially consolidated infiltrate and peribronchial thumping in the lower lobe bilaterally. Patient is currently doing much better, not requiring any oxygen. Being discharged on Tamiflu and Ceftin. PHYSICAL EXAMINATION: GENERAL: The patient is alert and oriented x3, not in any acute distress. Well developed, well nourished. HEENT: Pupils are round and equally reacting to light. EOMI. No scleral icterus. No conjunctival pallor. Normocephalic, atraumatic. No pharyngeal erythema. No thyromegaly. CARDIOVASCULAR: S1 and S2 present. No murmurs, rubs, or gallops. PULMONARY: Chest is clear to auscultation, no wheezing or crackles. ABDOMEN: Soft, nontender, nondistended, normoactive bowel sounds. No palpable organomegaly. MUSCULOSKELETAL: No joint swelling or deformity. EXTREMITIES: No cyanosis, clubbing, or pedal edema. NEUROLOGICAL: Gross neurological examination did not reveal any focal deficits. SKIN: No rashes. Dictation was produced using [employer] dictation software. please excuse any grammatical, word or spelling errors. Patient Condition at Discharge: Stable Plan - Discharge Summary Discharge Rx Participant: Yes New Discharge Prescriptions: New methylPREDNISolone Dose Pack [Medrol Dose Pack] 4 mg PO DIRECTED #1 packet Oseltamivir [Tamiflu] 75 mg PO Q12HR 3 Days #5 cap Continue Rivaroxaban [Xarelto] 20 mg PO DAILY Lactose-Reduced Food [Ensure Plus High Protein] 237 ml PO DAILY clonazePAM [KlonoPIN] 0.5 mg PO DAILY PRN PRN Reason: Anxiety Pantoprazole Sodium [Protonix] 20 mg PO DAILY Semaglutide [Ozempic] 0.25 mg SQ MCCOY Losartan [Cozaar] 25 mg PO HS 90 Days #90 tab Eszopiclone [Lunesta] 2 mg PO HS PRN PRN Reason: Insomnia Cholecalciferol [Vitamin D3 (25 Mcg = 1000 Iu)] 50 mcg PO DAILY traZODone HCL [Desyrel] 50 mg PO HS PRN PRN Reason: Insomnia Solifenacin Succinate [Vesicare] 10 mg PO DAILY Prednisolone Acetate/Pf [Prednisolone Acet 1% Eye Drop] 1 drop BOTH EYES BID Pramipexole [Mirapex] 1 mg PO BID DULoxetine HCL [Cymbalta] 60 mg PO BID Pregabalin [Lyrica] 150 mg PO BID 7 Days #14 cap Discharge Medication List Cholecalciferol [Vitamin D3 (25 Mcg = 1000 Iu)] 50 mcg PO DAILY 09/05/24 [History] DULoxetine HCL [Cymbalta] 60 mg PO BID 09/05/24 [History] Eszopiclone [Lunesta] 2 mg PO HS PRN 09/05/24 [History] Lactose-Reduced Food [Ensure Plus High Protein] 237 ml PO DAILY 09/05/24 [History] Pantoprazole Sodium [Protonix] 20 mg PO DAILY 09/05/24 [History] Pramipexole [Mirapex] 1 mg PO BID 09/05/24 [History] Prednisolone Acetate/Pf [Prednisolone Acet 1% Eye Drop] 1 drop BOTH EYES BID 09/05/24 [History] Rivaroxaban [Xarelto] 20 mg PO DAILY 09/05/24 [History] Solifenacin Succinate [Vesicare] 10 mg PO DAILY 09/05/24 [History] clonazePAM [KlonoPIN] 0.5 mg PO DAILY PRN 09/05/24 [History] traZODone HCL [Desyrel] 50 mg PO HS PRN 09/05/24 [History] Pregabalin [Lyrica] 150 mg PO BID 7 Days #14 cap 10/10/24 [Rx] Semaglutide [Ozempic] 0.25 mg SQ MCCOY 10/24/24 [History] Losartan [Cozaar] 25 mg PO HS 90 Days #90 tab 10/27/24 [Rx] Oseltamivir [Tamiflu] 75 mg PO Q12HR 3 Days #5 cap 12/11/24 [Rx] methylPREDNISolone Dose Pack [Medrol Dose Pack] 4 mg PO DIRECTED #1 packet 12/11/24 [Rx] Follow up Appointment(s)/Referral(s): Jayson Reilly MD [Primary Care Provider] - 1-2 days Discharge Disposition: HOME SELF-CARE
[2024-12-14] MEDS ORDERED: Semaglutide [Ozempic] 0.25 MG/0.368 ML Pen.Injctr SQ SCH (09:00)
== END 2024-12-11 15:42 | disposition home or self-care (01) | DRG 194 ==
LOC: EC 11:54 → 4SSUR 14:47 → OBSVTOIN 14:48 → 4SSUR 16:37
PROVIDERS: ADMIT Hospitalist; ATTEND Hospitalist
DX: J10.08 Influenza due to other identified influenza virus with other specified pneumonia (principal); N39.0 Urinary tract infection, site not specified; E11.9 Type 2 diabetes mellitus without complications; F32.A Depression, unspecified; E86.0 Dehydration; F41.9 Anxiety disorder, unspecified; U09.9 Post COVID-19 condition, unspecified; Z79.01 Long term (current) use of anticoagulants; Z95.0 Presence of cardiac pacemaker; Z98.84 Bariatric surgery status; Z11.52 Encounter for screening for COVID-19; Z88.6 Allergy status to analgesic agent; Z88.5 Allergy status to narcotic agent; J40 Bronchitis, not specified as acute or chronic
CPT/HCPCS: 36415; 71046; 71275; 80053; 81001; 83036; 83605; 83735; 84145; 85025; 85379; 85610; 85652; 85730; 86140; 87040; 87086; 87636; 93005; 94640; 94760; 96361; 96374; 96375; 99285

== ENCOUNTER 2024-12-15 15:17 | Emergency (ER) | payer MEDICARE ==
[2024-12-15 15:40] VITALS: TEMP 98.7
--- NOTE | 2024-12-15 15:59 | ED ---
General Adult HPI - General Chief complaint: Upper Respiratory Infection Stated complaint: Abd Pain Cough Time Seen by Provider: 12/15/24 15:57 Source: patient, family, RN notes reviewed, old records reviewed Mode of arrival: ambulatory Limitations: no limitations - History of Present Illness Initial comments: Patient is a 74-year-old male accompanied by his presented to the ER for evaluation of cough and weakness. Patient was recently diagnosed with influenza A and pneumonia on 12-09-2024. Patient was subsequently admitted for observation at that time. Patient was discharged on 12 11 24 with a prescription of Tamiflu, Medrol Dosepak and Ceftin. Patient reports over the past couple days he has been having a worsening of symptoms without improvement. Patient reports he consistent productive cough and stating that he is having difficulty clearing his cough. He denies fevers. Patient states over the past couple days he has been having a lower abdominal discomfort. He states it is burning in nature and made worse with movement and coughing. Patient also has been having a decreased appetite. Patient has been taking prescribed medications as instructed. Patient has tried [id number] Mucinex and decongestants for cough without relief. He denies any fevers, chest pain, urinary complaints, constipation/diarrhea or peripheral edema. Patient has no history of COPD or asthma. Patient is a non-smoker. - Related Data Home Medications Medication Instructions Recorded Confirmed Cholecalciferol [Vitamin D3 (25 50 mcg PO DAILY 09/05/24 12/15/24 Mcg = 1000 Iu)] DULoxetine HCL [Cymbalta] 60 mg PO BID 09/05/24 12/15/24 Eszopiclone [Lunesta] 2 mg PO HS PRN 09/05/24 12/15/24 Lactose-Reduced Food [Ensure Plus 237 ml PO DAILY 09/05/24 12/15/24 High Protein] Pantoprazole Sodium [Protonix] 20 mg PO DAILY 09/05/24 12/15/24 Pramipexole [Mirapex] 1 mg PO BID 09/05/24 12/15/24 Prednisolone Acetate/Pf 1 drop BOTH EYES BID 09/05/24 12/15/24 [Prednisolone Acet 1% Eye Drop] Rivaroxaban [Xarelto] 20 mg PO DAILY 09/05/24 12/15/24 Solifenacin Succinate [Vesicare] 10 mg PO DAILY 09/05/24 12/15/24 clonazePAM [KlonoPIN] 0.5 mg PO DAILY PRN 09/05/24 12/15/24 traZODone HCL [Desyrel] 50 mg PO HS PRN 09/05/24 12/15/24 Semaglutide [Ozempic] 0.25 mg SQ MCCOY 10/24/24 12/15/24 methylPREDNISolone Dose Pack See Taper PO DIRECTED 12/15/24 12/15/24 [Medrol Dose Pack] Previous Rx's Medication Instructions Recorded Pregabalin [Lyrica] 150 mg PO BID 7 Days #14 cap 10/10/24 Losartan [Cozaar] 25 mg PO HS 90 Days #90 tab 10/27/24 Oseltamivir [Tamiflu] 75 mg PO Q12HR 3 Days #5 cap 12/11/24 Albuterol Inhaler [Ventolin Hfa 1 - 2 puff INHALATION Q6H PRN #1 12/15/24 Inhaler] each Allergies Allergy/AdvReac Type Severity Reaction Status Date / Time NSAIDS (Non-Steroidal Allergy Unknown Verified 12/15/24 17:50 Anti-Inflamma morphine AdvReac Itching Verified 12/15/24 17:50 Review of Systems ROS Statement: Those systems with pertinent positive or pertinent negative responses have been documented in the HPI. ROS Other: All systems not noted in ROS Statement are negative. Past Medical History Past Medical History: Diabetes Mellitus, Syncope Additional Past Medical History / Comment(s): Long Covid Syndrome History of Any Multi-Drug Resistant Organisms: None Reported Past Surgical History: Pacemaker Additional Past Surgical History / Comment(s): bariatric sx 1998. 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 bowel surgery twisted bowel post op bariatric sx. Past Anesthesia/Blood Transfusion Reactions: No Reported Reaction Type of Cardiac Device: Permanent Pacemaker Device Placement Date:: 2005 Past Psychological History: Anxiety, Depression Smoking Status: Never smoker Past Alcohol Use History: None Reported Past Drug Use History: None Reported - Past Family History Father Family Medical History: Unable to Obtain General Exam Limitations: no limitations General appearance: alert, in no apparent distress ENT exam: Present: normal exam, mucous membranes moist Respiratory exam: Present: wheezes (Bilaterally expiratory), rales (Right) Cardiovascular Exam: Present: regular rate, normal rhythm, normal heart sounds. Absent: systolic murmur, diastolic murmur, rubs, gallop, clicks GI/Abdominal exam: Present: soft, tenderness (Left lower quadrant), normal bowel sounds Extremities exam: Present: normal inspection, full ROM, normal capillary refill. Absent: tenderness, pedal edema, joint swelling, calf tenderness Neurological exam: Present: alert, oriented X3, CN II-XII intact Skin exam: Present: warm, dry, intact, normal color. Absent: rash Course Vital Signs 12/15/24 12/15/24 12/15/24 15:36 16:40 16:48 Temperature 98.7 F Pulse Rate 104 H 82 85 Respiratory 20 Rate Blood Pressure 103/68 O2 Sat by Pulse 96 Oximetry 12/15/24 17:49 Temperature Pulse Rate 81 Respiratory 18 Rate Blood Pressure 117/67 O2 Sat by Pulse 94 L Oximetry EKG Findings - EKG Comments: EKG Findings:: EKG taken at 16: 11 showing a sinus rhythm. No ST segment elevations or depressions. No T wave inversions. Ventricular rate 76, VA interval 141, QRS duration 101, QT/QTc 376/406. Medical Decision Making - Medical Decision Making Was pt. sent in by a medical professional or institution (, PA, MANAGER TAX, urgent care, hospital, or half-way...) When possible be specific @ -No Did you speak to anyone other than the patient for history (EMS, parent, family, police, friend...)? What history was obtained from this source @ -Patient's , at bedside, aiding in HPI past medical history. Did you review nursing and triage notes (agree or disagree)? Why? @ -I reviewed and agree with nursing and triage notes Were old charts reviewed (outside hosp., previous admission, EMS record, old EKG, old radiological studies, urgent care reports/EKG's, half-way records)? Report findings @ -Yes, I reviewed ER visit and hospital admission from 12-09-2024. Patient diagnosed with influenza and pneumonia and admitted to hospital for observation. Patient discharged on 12 11 24 with a prescription of Tamiflu, Medrol Dosepak and Ceftin. Differential Diagnosis (chest pain, altered mental status, abdominal pain women, abdominal pain men, vaginal bleeding, weakness, fever, dyspnea, syncope, headache, dizziness, GI bleed, back pain, seizure, CVA, palpatations, mental health, musculoskeletal)? @ -Differential Dyspnea:Coronary syndrome, arrhythmia, tamponade, asthma, COPD, pulmonary embolism, pneumonia, pneumothorax, pulmonary effusion, anaphylaxis, diabetic ketoacidosis, flailed chest, pulmonary contusion, diaphragmatic rupture, anemia, neuromuscular, this is not meant to be an all-inclusive list. EKG interpreted by me (3pts min.). @ -As above X-rays interpreted by me (1pt min.). @ -CXR interpreted by me negative for acute focal consolidations. CT interpreted by me (1pt min.). @ -None done U/S interpreted by me (1pt. min.). @ -None done What testing was considered but not performed or refused? (CT, X-rays, U/S, labs)? Why? @ -None What meds were considered but not given or refused? Why? @ -None Did you discuss the management of the patient with other professionals (professionals i.e. , PA, MANAGER TAX, lab, RT, psych nurse, hospice social worker, sql report developer, teacher, ground nuclear weapons assembly officer, embedded case manager)? Give summary @ -No Was smoking cessation discussed for >3mins.? @ -No Was critical care preformed (if so, how long)? @ -No Were there social determinants of health that impacted care today? How? (Homelessness, low income, unemployed, alcoholism, drug addiction, transportation, low edu. Level, literacy, decrease access to med. care, detention, rehab)? @ -No Was there de-escalation of care discussed even if they declined (Discuss DNR or withdrawal of care, Hospice)? DNR status @ -No What co-morbidities impacted this encounter? (DM, HTN, Smoking, COPD, CAD, Cancer, CVA, ARF, Chemo, Hep., AIDS, mental health diagnosis, sleep apnea, morbid obesity)? @ -None Was patient admitted / discharged? Hospital course, mention meds given and route, prescriptions, significant lab abnormalities, going to OR and other pertinent info. @ -Discharge. 74-year-old male presented the ER for evaluation of cough and weakness. Patient recently discharged after hospitalization due to influenza and pneumonia. Upon rooming, history and physical exam completed. Vitals within acceptable limits. CBC unremarkable. CMP unimpressive. Urinalysis unremarkable. Influenza A positive. Chest x-ray without evidence of focal consolidations. Patient given IV fluids in the ER and DuoNeb with improvement of symptoms. Instructed patient to follow-up closely with PCP and to continue taking Tamiflu, Medrol Dosepak and Ceftin as prescribed at discharge. I also instructed patient to take Tylenol outpatient. Albuterol inhaler prescribed. Strict return parameters discussed. Patient discharged in stable condition. Patient verbally expressed understanding agree with care plan. Case discussed with the attending by Dr. Medina. Undiagnosed new problem with uncertain prognosis? @ -No Drug Therapy requiring intensive monitoring for toxicity (Heparin, Nitro, Insulin, Cardizem)? @ -No Were any procedures done? @ -No Diagnosis/symptom? @ -Influenza A/acute viral sinusitis Acute, or Chronic, or Acute on Chronic? @ -Acute Uncomplicated (without systemic symptoms) or Complicated (systemic symptoms)? @ -Uncomplicated Side effects of treatment? @ -No Exacerbation, Progression, or Severe Exacerbation? @ -No Poses a threat to life or bodily function? How? (Chest pain, [place], NH, pneumonia, PE, COPD, DKA, ARF, appy, cholecystitis, CVA, Diverticulitis, Homicidal, Suicidal, threat to staff... and all critical care pts) @ -Low at this time - Lab Data Result diagrams: 12/15/24 16:20 12/15/24 16:20 Lab Results 12/15/24 12/15/24 12/15/24 Range/Units 16:20 16:20 16:20 WBC 8.7 (3.8-10.6) k/uL RBC 5.40 (4.30-5.90) m/uL Hgb 14.0 (13.0-17.5) gm/dL Hct 44.0 (39.0-53.0) % MCV 81.5 (80.0-100.0) fL MCH 26.0 (25.0-35.0) pg MCHC 31.9 (31.0-37.0) g/dL RDW 20.1 H (11.5-15.5) % Plt Count 209 (150-450) k/uL MPV 8.9 Neutrophils % 78 % Lymphocytes % 14 % Monocytes % 5 % Eosinophils % 1 % Basophils % 0 % Neutrophils # 6.8 (1.3-7.7) k/uL Lymphocytes # 1.2 (1.0-4.8) k/uL Monocytes # 0.4 (0-1.0) k/uL Eosinophils # 0.1 (0-0.7) k/uL Basophils # 0.0 (0-0.2) k/uL Anisocytosis Moderate Microcytosis Slight Sodium 137 (137-145) mmol/L Potassium 5.2 H (3.5-5.1) mmol/L Chloride 98 (98-107) mmol/L Carbon Dioxide 28 (22-30) mmol/L Anion Gap 11 mmol/L BUN 20 (9-20) mg/dL Creatinine 0.77 (0.66-1.25) mg/dL Est GFR (CKD-EPI)AfAm >90 (>60 ml/min/1.73 sqM) Est GFR (CKD-EPI)NonAf >90 (>60 ml/min/1.73 sqM) Glucose 138 H (74-99) mg/dL Plasma Lactic Acid Joshua (0.7-2.0) mmol/L Calcium 9.0 (8.4-10.2) mg/dL Total Bilirubin 0.7 (0.2-1.3) mg/dL AST 109 H (17-59) U/L ALT 154 H (4-49) U/L Alkaline Phosphatase 90 (38-126) U/L Total Protein 7.4 (6.3-8.2) g/dL Albumin 4.1 (3.5-5.0) g/dL Urine Color Yellow Urine Appearance Clear (Clear) Urine pH 5.5 (5.0-8.0) Ur Specific [place] 1.017 (1.001-1.035) Urine Protein Negative (Negative) Urine Glucose (UA) Negative (Negative) Urine Ketones Negative (Negative) Urine Blood Negative (Negative) Urine Nitrite Negative (Negative) Urine Bilirubin Negative (Negative) Urine Urobilinogen <2.0 (<2.0) mg/dL Ur Leukocyte Esterase Negative (Negative) Influenza Type A (PCR) (Not Detectd) Influenza Type B (PCR) (Not Detectd) RSV (PCR) (Not Detectd) SARS-CoV-2 (PCR) (Not Detectd) 12/15/24 12/15/24 Range/Units 16:20 16:20 WBC (3.8-10.6) k/uL RBC (4.30-5.90) m/uL Hgb (13.0-17.5) gm/dL Hct (39.0-53.0) % MCV (80.0-100.0) fL MCH (25.0-35.0) pg MCHC (31.0-37.0) g/dL RDW (11.5-15.5) % Plt Count (150-450) k/uL MPV Neutrophils % % Lymphocytes % % Monocytes % % Eosinophils % % Basophils % % Neutrophils # (1.3-7.7) k/uL Lymphocytes # (1.0-4.8) k/uL Monocytes # (0-1.0) k/uL Eosinophils # (0-0.7) k/uL Basophils # (0-0.2) k/uL Anisocytosis Microcytosis Sodium (137-145) mmol/L Potassium (3.5-5.1) mmol/L Chloride (98-107) mmol/L Carbon Dioxide (22-30) mmol/L Anion Gap mmol/L BUN (9-20) mg/dL Creatinine (0.66-1.25) mg/dL Est GFR (CKD-EPI)AfAm (>60 ml/min/1.73 sqM) Est GFR (CKD-EPI)NonAf (>60 ml/min/1.73 sqM) Glucose (74-99) mg/dL Plasma Lactic Acid Joshua 1.4 (0.7-2.0) mmol/L Calcium (8.4-10.2) mg/dL Total Bilirubin (0.2-1.3) mg/dL AST (17-59) U/L ALT (4-49) U/L Alkaline Phosphatase (38-126) U/L Total Protein (6.3-8.2) g/dL Albumin (3.5-5.0) g/dL Urine Color Urine Appearance (Clear) Urine pH (5.0-8.0) Ur Specific [place] (1.001-1.035) Urine Protein (Negative) Urine Glucose (UA) (Negative) Urine Ketones (Negative) Urine Blood (Negative) Urine Nitrite (Negative) Urine Bilirubin (Negative) Urine Urobilinogen (<2.0) mg/dL Ur Leukocyte Esterase (Negative) Influenza Type A (PCR) Detected A (Not Detectd) Influenza Type B (PCR) Not Detected (Not Detectd) RSV (PCR) Not Detected (Not Detectd) SARS-CoV-2 (PCR) Not Detected (Not Detectd) - Radiology Data Radiology results: report reviewed, image reviewed Disposition Clinical Impression: Influenza A, Acute viral sinusitis Disposition: HOME SELF-CARE Condition: Stable Instructions (If sedation given, give patient instructions): Influenza (DC) Additional Instructions: Continue taking Tamiflu, Medrol Dosepak and Ceftin as prescribed at your discharge. Follow-up closely with PCP in the next 1 to 2 days. Return to the ER for any new or worsening concerns. Prescriptions: Albuterol Inhaler [Ventolin Hfa Inhaler] 1 - 2 puff INHALATION Q6H PRN #1 each PRN Reason: Shortness Of Breath Is patient prescribed a controlled substance at d/c from ED?: No Referrals: Jayson Reilly MD [Primary Care Provider] - 1-2 days Time of Disposition: 17:40
[2024-12-15] MEDS: IPRATROPIUM-ALBUTEROL 3 ML NEB INHALATION STA (16:40)
[2024-12-15] MEDS: SODIUM CHLORIDE 0.9% 1,000 ML IV STA (16:44)
[2024-12-15 16:47] LABS: Anisocytosis Moderate; Basophils % (A) 0 %; Eosinophils # (A) 0.1 k/uL (0-0.7); Eosinophils % (A) 1 %; Lymphocytes # (A) 1.2 k/uL (1.0-4.8); Lymphocytes % (A) 14 %; MCHC 31.9 g/dL (31.0-37.0); MCV 81.5 fL (80.0-100.0); Mean Platelet Volume 8.9; Microcytosis Slight; Monocytes # (A) 0.4 k/uL (0-1.0); Monocytes % (A) 5 %; Neutrophils # (A) 6.8 k/uL (1.3-7.7); Neutrophils % (A) 78 %; Platelet Count 209 k/uL (150-450); RDW 20.1 % (11.5-15.5); WBC 8.7 k/uL (3.8-10.6)
[2024-12-15 16:50] LABS: Appearance,Urine Clear (Clear); Bilirubin,Urine Negative (Negative); Blood,Urine Negative (Negative); Color,Urine Yellow; Glucose,Urine (UA) Negative (Negative); Ketones,Urine Negative (Negative); Leukocyte Esterase,Urine Negative (Negative); Nitrite,Urine Negative (Negative); PH, Urine 5.5 (5.0-8.0); Protein,Urine Negative (Negative); Specific Gravity,Urine 1.017 (1.001-1.035); Urobilinogen,Urine <2.0 mg/dL (<2.0)
[2024-12-15 16:52] LABS: ALT 154 U/L (4-49); AST 109 U/L (17-59); African American GFR (CKD) >90 (>60 ml/min/1.73 sqM); Albumin 4.1 g/dL (3.5-5.0); Alkaline Phosphatase 90 U/L (38-126); Anion Gap 11 mmol/L; Blood Urea Nitrogen 20 mg/dL (9-20); Carbon Dioxide 28 mmol/L (22-30); Chloride 98 mmol/L (98-107); Glucose 138 mg/dL (74-99); Non-African American GFR(CKD) >90 (>60 ml/min/1.73 sqM); Potassium 5.2 mmol/L (3.5-5.1); Sodium 137 mmol/L (137-145); Total Bilirubin 0.7 mg/dL (0.2-1.3); Total Protein 7.4 g/dL (6.3-8.2)
--- NOTE | 2024-12-15 17:02 | XR ---
EXAMINATION TYPE: XR chest 2V DATE OF EXAM: 12/15/2024 4:35 PM COMPARISON: Chest radiographs from 12/09/2024 CLINICAL INDICATION: Male, 74 years old with history of cough; TECHNIQUE: XR chest 2V Frontal and lateral views of the chest. FINDINGS: Lungs/Pleura: There is no evidence of pleural effusion, focal consolidation, or pneumothorax. Pulmonary vascularity: Unremarkable. Heart/mediastinum: Cardiomediastinal silhouette is unremarkable. Two lead cardiac conduction device o verlying the left hemithorax with lead tips projecting over the right ventricle and right atrium. Musculoskeletal: No acute osseous pathology. IMPRESSION: No acute cardiopulmonary disease/process. [facility], , 12/15/2024 4:59 PM
[2024-12-15 17:20] LABS: Influenza A Detected (Not Detectd); Influenza B Not Detected (Not Detectd); RSV Not Detected (Not Detectd)
[2024-12-15 17:51] VITALS: BP 117/67; PULSE 81; RESP 18
== END 2024-12-15 18:00 | disposition home or self-care (01) ==
LOC: EC 15:17
DX: J10.1 Influenza due to other identified influenza virus with other respiratory manifestations (principal); J01.90 Acute sinusitis, unspecified; Z88.5 Allergy status to narcotic agent; Z88.6 Allergy status to analgesic agent
CPT/HCPCS: 36415; 71046; 80053; 81003; 83605; 85025; 87636; 93005; 94640; 96360; 99284

== ENCOUNTER 2025-01-13 10:35 | Day surgery (SDC) | payer MEDICARE ==
[2025-01-09 09:22] VITALS: BMI 24.3
[~2025-01-13 10:35] MED LIST: LIDOCAINE 1% (10MG/ML) FOR IV START INTRADERMA PRN
[2025-01-13 11:14] VITALS: TEMP 97.8
[2025-01-13] MEDS: IV FLUID CONTINUATION 1,000 ML IV ONE (11:22)
[2025-01-13] MEDS: LACTATED RINGERS 1,000 ML IV SCH (11:23)
[2025-01-13 11:30] LABS: Glucose,Whole Blood 110 mg/dL (70-110)
[2025-01-13] MEDS ORDERED: PROPOFOL 10 MG/ML 20 ML VIAL IV ONE (12:22)
[2025-01-13] MEDS ORDERED: LIDOCAINE 1% INJ 10MG/ML (20 ML MDV) ONE (12:22)
--- NOTE | 2025-01-13 12:32 | P.PCN ---
Date of Procedure: 01/13/25 Procedure(s) Performed: BRIEF HISTORY: Patient is a 74-year-old, pleasant, white male scheduled upper endoscopy as a part evaluation of iron deficiency anemia and prior history of gastric ulcers. PROCEDURE PERFORMED: Esophagogastroduodenoscopy biopsy. PREOPERATIVE DIAGNOSIS: History of iron deficiency anemia and gastric ulcers. IV sedation per anesthesia. PROCEDURE: After informed consent was obtained, the patient was brought into the endoscopy unit. IV sedation was administered by Anesthesia under continuous monitoring. Initially the Olympus GIF-140 video endoscope was inserted into the mouth. Esophagus intubated without any difficulty. It was gradually advanced into the stomach. There was evidence of gastric bypass surgery with Christiano-en-Y anastomosis noted. The scope was advanced into the afferent and even feels that appeared normal. Biopsies were done from the jejunum to evaluate for celiac disease. The scope at this time was withdrawn into the gastric pouch. At the Christiano-en-Y anastomosis there was some nodularity identified and biopsies were done from this area. On retroflexion the cardia appeared normal. The scope was then withdrawn into the esophagus. The GE junction was located at 39 cm from the incisors. There were linear erosions noted in the distal esophagus consistent with LA grade B reflux esophagitis. Rest of the esophagus appeared normal and the patient tolerated the procedure well. IMPRESSION: 1. Evidence of gastric bypass surgery with Christiano-en-Y anastomosis. 2. Mild nodularity/polyp at the Christiano-en-Y anastomosis status post multiple biopsies 3. Linear erosions in the distal esophagus consistent with LA grade B reflux esophagitis 4. Normal-appearing gastric polyps. RECOMMENDATIONS: The findings of this examination were discussed with the patient as well as his family. He was advised to follow-up with the biopsy results. Recommend starting omeprazole 20 mg daily and follow antireflux measures. If patient has persistent iron deficiency anemia recommend a colonoscopy to evaluate further as his last colonoscopy was more than 5 years ago
[2025-01-13 12:56] VITALS: BP 118/66; PULSE 71; RESP 17
== END 2025-01-13 13:44 | disposition home or self-care (01) ==
LOC: ORWHC2ENDO 10:35
PROVIDERS: ATTEND Internal Medicine Gastroenterology
DX: D50.9 Iron deficiency anemia, unspecified (principal); K29.50 Unspecified chronic gastritis without bleeding; K22.10 Ulcer of esophagus without bleeding; K31.7 Polyp of stomach and duodenum; U09.9 Post COVID-19 condition, unspecified; H18.519 Endothelial corneal dystrophy, unspecified eye; F41.9 Anxiety disorder, unspecified; F32.A Depression, unspecified; Z79.85 Long-term (current) use of injectable non-insulin antidiabetic drugs; Z79.899 Other long term (current) drug therapy; Z87.11 Personal history of peptic ulcer disease; Z98.84 Bariatric surgery status; Z95.0 Presence of cardiac pacemaker; Z88.6 Allergy status to analgesic agent; Z88.5 Allergy status to narcotic agent
CPT/HCPCS: 43239; J2003; J2704; 88305

== ENCOUNTER 2025-01-19 00:27 | Emergency (ER) | payer MEDICARE ==
[2025-01-19 00:34] VITALS: TEMP 98.6
--- NOTE | 2025-01-19 00:44 | ED ---
Fall HPI - General Chief Complaint: Fall Stated Complaint: SOB Time Seen by Provider: 01/19/25 00:41 Source: patient Mode of arrival: wheelchair - History of Present Illness Initial Comments: This 74-year-old male to the ER for evaluation of a trip and fall. Patient had a trip and fall on the rug prior to arrival with the left side of his chest wall against the counter. No other injury noted from this fall just left-sided rib pain occasional shortness of breath especially with deep breath. No modifying factors and symptoms began. 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 Witnessed: no Place Fall Occurred: home Loss of Consciousness: none Prolonged Down Time?: no Symptoms Prior to Fall: none Location: chest (Chest wall) Severity: moderate Severity scale (1-10): 5 Context: tripped/slipped Associated Symptoms: denies - Related Data Home Medications Medication Instructions Recorded Confirmed Cholecalciferol [Vitamin D3 (25 50 mcg PO DAILY 09/05/24 01/13/25 Mcg = 1000 Iu)] DULoxetine HCL [Cymbalta] 60 mg PO BID 09/05/24 01/13/25 Eszopiclone [Lunesta] 2 mg PO HS PRN 09/05/24 01/13/25 Pantoprazole Sodium [Protonix] 20 mg PO DAILY 09/05/24 01/13/25 Pramipexole [Mirapex] 1 mg PO BID 09/05/24 01/13/25 Prednisolone Acetate/Pf 1 drop BOTH EYES BID 09/05/24 01/13/25 [Prednisolone Acet 1% Eye Drop] Solifenacin Succinate [Vesicare] 10 mg PO DAILY 09/05/24 01/13/25 traZODone HCL [Desyrel] 50 mg PO HS PRN 09/05/24 01/13/25 Semaglutide [Ozempic] 0.5 mg SQ MCCOY 10/24/24 01/13/25 Previous Rx's Medication Instructions Recorded Pregabalin [Lyrica] 150 mg PO BID 7 Days #14 cap 10/10/24 Losartan [Cozaar] 25 mg PO HS 90 Days #90 tab 10/27/24 Allergies Allergy/AdvReac Type Severity Reaction Status Date / Time NSAIDS (Non-Steroidal Allergy Unknown Verified 01/19/25 00:29 Anti-Inflamma morphine AdvReac Itching Verified 01/19/25 00:29 Review of Systems ROS Statement: Those systems with pertinent positive or pertinent negative responses have been documented in the HPI. ROS Other: All systems not noted in ROS Statement are negative. Past Medical History Past Medical History: Diabetes Mellitus, Prostate Disorder, Syncope Additional Past Medical History / Comment(s): Long Covid Syndrome History of Any Multi-Drug Resistant Organisms: None Reported Past Surgical History: Bariatric Surgery, Bowel Resection, Joint Replacement, Orthopedic Surgery, Pacemaker Additional Past Surgical History / Comment(s): bariatric sx 1998. 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 bowel surgery twisted bowel post op bariatric sx. Past Anesthesia/Blood Transfusion Reactions: No Reported Reaction Type of Cardiac Device: Permanent Pacemaker Device Placement Date:: 2005 Past Psychological History: Anxiety, Depression Smoking Status: Never smoker Past Alcohol Use History: None Reported Past Drug Use History: None Reported - Past Family History Father Family Medical History: Unable to Obtain General Exam Limitations: no limitations General appearance: alert, in no apparent distress Head exam: Present: atraumatic, normocephalic, normal inspection Eye exam: Present: normal appearance, PERRL, EOMI. Absent: scleral icterus, conjunctival injection, periorbital swelling ENT exam: Present: normal exam, mucous membranes moist Neck exam: Present: normal inspection. Absent: tenderness, meningismus, lympha denopathy Respiratory exam: Present: normal lung sounds bilaterally. Absent: respiratory distress, wheezes, rales, rhonchi, stridor Cardiovascular Exam: Present: regular rate, normal rhythm, normal heart sounds. Absent: systolic murmur, diastolic murmur, rubs, gallop, clicks GI/Abdominal exam: Present: soft, normal bowel sounds. Absent: distended, tenderness, guarding, rebound, rigid Extremities exam: Present: normal inspection, full ROM, normal capillary refill. Absent: tenderness, pedal edema, joint swelling, calf tenderness Back exam: Present: normal inspection Neurological exam: Present: alert, oriented X3, CN II-XII intact Psychiatric exam: Present: normal affect, normal mood Skin exam: Present: warm, dry, intact, normal color. Absent: rash Course Vital Signs 01/19/25 01/19/25 00:29 02:30 Temperature 98.6 F Pulse Rate 74 89 Respiratory 16 18 Rate Blood Pressure 124/68 116/78 O2 Sat by Pulse 97 95 Oximetry - Reevaluation(s) Reevaluation #1: 01/19/25 01:51 Medical records reviewed Reevaluation #2: 01/19/25 01:51 Patient's pain is improved no acute distress Reevaluation #3: 01/19/25 01:51 Patient informed of results questions answered Reevaluation #4: Was pt. sent in by a medical professional or institution (, FREDI, OPHTHALMOLOGY SURGICAL TECHNICIAN, urgent care, hospital, or detention...) When possible be specific @ -no Did you speak to anyone other than the patient for history (EMS, parent, family, police, friend...)? What history was obtained from this source @ -no Did you review nursing and triage notes (agree or disagree)? Why? @ -agree Are old charts reviewed (outside hosp., previous admission, EMS record, old EKG, old radiological studies, urgent care reports/EKG's, detention records)? Report findings @ -yes Differential Diagnosis (chest pain, altered mental status, abdominal pain women, abdominal pain men, vaginal bleeding, weakness, fever, dyspnea, syncope, headache, dizziness, GI bleed, back pain, seizure, CVA, palpatations, mental health, musculoskeletal)? @ -prior EKG interpreted by me (3pts min.). @ -yes X-rays interpreted by me (1pt min.). @ -yes negative for acute disease CT interpreted by me (1pt min.). @ -no U/S interpreted by me (1pt. min.). @ -no What testing was considered but not performed or refused? (CT, X-rays, U/S, labs)? Why? @ -none What meds were considered but not given or refused? Why? @ -none Did you discuss the management of the patient with other professionals (professionals i.e. FREDI Gonzalez, OPHTHALMOLOGY SURGICAL TECHNICIAN, lab, RT, psych nurse, vp digital marketing social media and crm, wrapper layer and examiner soft work, teacher, compliance officer, telephonic case manager)? Give summary @ -no Was smoking cessation discussed for >3mins.? @ -no Was critical care preformed (if so, how long)? @ -no Were there social determinants of health that impacted care today? How? (Homelessness, low income, unemployed, alcoholism, drug addiction, transportation, low edu. Level, literacy, decrease access to med. care, care home, rehab)? @ -none Was there de-escalation of care discussed even if they declined (Discuss DNR or withdrawal of care, Hospice)? DNR status @ -no What co-morbidities impacted this encounter? (DM, HTN, Smoking, COPD, CAD, Cancer, CVA, ARF, Chemo, Hep., AIDS, mental health diagnosis, sleep apnea, morbid obesity)? @ -none Was patient admitted / discharged? Hospital course, mention meds given and route, prescriptions, significant lab abnormalities, going to OR and other pertinent info. @ - 74 male to the ER for evaluation of severe left-sided rib pain left-sided chest wall pain with left rib contusion. Patient has no other traumatic injury noted as he is normal and can be discharged home no acute distress Left rib contusion Undiagnosed new problem with uncertain prognosis? @ -no Drug Therapy requiring intensive monitoring for toxicity (Heparin, Nitro, Insulin, Cardizem)? @ -no Were any procedures done? @ -no Diagnosis/symptom? @ -Chest wall pain left rib contusion fall Acute, or Chronic, or Acute on Chronic? @ -Acute Uncomplicated (without systemic symptoms) or Complicated (systemic symptoms)? @ -Complicated Side effects of treatment? @ -no Exacerbation, Progression, or Severe Exacerbation? @ -exacerbation Poses a threat to life or bodily function? How? (Chest pain, [place], [place], pneumonia, PE, COPD, DKA, ARF, appy, cholecystitis, CVA, Diverticulitis, Homicidal, Suicidal, threat to staff... and all critical care pts) @ -yes extremes of age Reevaluation #5: 01/19/25 01:51 Differential Chest Pain: Stable Angina, Unstable Angina, STEMI, NSTEMI Aortic Dissection, Pneumothorax, Musculoskeletal, Esophageal Spasm GERD, Cholecystitis, Pancreatitis, Zoster, this is not meant to be an all-inclusive list. Medical Decision Making - Medical Decision Making 74 male to the ER for evaluation of severe left-sided rib pain left-sided chest wall pain with left rib contusion. Patient has no other traumatic injury noted as he is normal and can be discharged home no acute distress - Lab Data Result diagrams: 01/19/25 00:47 01/19/25 00:47 Lab Results 01/19/25 01/19/25 01/19/25 Range/Units 00:47 00:47 00:47 WBC 7.4 (3.8-10.6) k/uL RBC 4.80 (4.30-5.90) m/uL Hgb 13.4 (13.0-17.5) gm/dL Hct 42.7 (39.0-53.0) % MCV 88.8 D (80.0-100.0) fL MCH 27.8 (25.0-35.0) pg MCHC 31.3 (31.0-37.0) g/dL RDW 19.5 H (11.5-15.5) % Plt Count 190 (150-450) k/uL MPV 9.2 Neutrophils % 64 % Lymphocytes % 24 % Monocytes % 6 % Eosinophils % 3 % Basophils % 1 % Neutrophils # 4.7 (1.3-7.7) k/uL Lymphocytes # 1.7 (1.0-4.8) k/uL Monocytes # 0.5 (0-1.0) k/uL Eosinophils # 0.2 (0-0.7) k/uL Basophils # 0.0 (0-0.2) k/uL Anisocytosis Slight Sodium 137 (137-145) mmol/L Potassium 4.7 (3.5-5.1) mmol/L Chloride 104 (98-107) mmol/L Carbon Dioxide 23 (22-30) mmol/L Anion Gap 10 mmol/L BUN 8 L (9-20) mg/dL Creatinine 0.80 (0.66-1.25) mg/dL Est GFR (CKD-EPI)AfAm >90 (>60 ml/min/1.73 sqM) Est GFR (CKD-EPI)NonAf 90 (>60 ml/min/1.73 sqM) Glucose 138 H (74-99) mg/dL Calcium 9.2 (8.4-10.2) mg/dL Phosphorus 3.6 (2.5-4.5) mg/dL Magnesium 1.8 (1.6-2.3) mg/dL Total Bilirubin 0.7 (0.2-1.3) mg/dL AST 33 (17-59) U/L ALT 28 (4-49) U/L Alkaline Phosphatase 100 (38-126) U/L Troponin I <0.012 (0.000-0.034) ng/mL Total Protein 7.1 (6.3-8.2) g/dL Albumin 4.1 (3.5-5.0) g/dL - EKG Data -: EKG Interpreted by Me (EKG is sinus 69 [place] 142 QRS 110 QTc 401) - Radiology Data Radiology results: report reviewed (X-rays positive for left rib contusion), image reviewed Disposition Clinical Impression: Fall, Chest pain, Contusion of rib on left side Disposition: HOME SELF-CARE Condition: Good Instructions (If sedation given, give patient instructions): Fall Prevention for Older Adults (ED), Rib Contusion (ED) Is patient prescribed a controlled substance at d/c from ED?: No Referrals: Jayson Reilly MD [Primary Care Provider] - 1-2 days Time of Disposition: 02:00
[2025-01-19] MEDS: SODIUM CHLORIDE 0.9% 1,000 ML IV SCH (01:07)
[2025-01-19] MEDS: ONDANSETRON 4 MG/2 ML VIAL IVP STA (01:08)
[2025-01-19] MEDS: HYDROmorphone 1 MG/ML 1 ML SYRINGE IVP STA (01:10)
--- NOTE | 2025-01-19 01:28 | XR ---
EXAM: XR Left Ribs, 2 Views CLINICAL HISTORY: ITS.REASON XR Reason: fall TECHNIQUE: Frontal and oblique views of the left ribs. COMPARISON: Chest x-ray of 12/15/2024. FINDINGS: Lungs: Unremarkable as visualized. No consolidation. Pleural space: Unremarkable. No pneumothorax or pleural effusion. Heart: Heart is top normal in size. Bones/joints: Evaluation of the left ribs reveals no acute left rib fracture. Osteopenia. Tubes, lines and devices: Pacemaker overlies the left mid chest. IMPRESSION: 1. Osteopenia. 2. No acute left rib fracture is detected. 3. No pneumothorax or pleural effusion.
[2025-01-19 01:31] LABS: Anisocytosis Slight; Basophils % (A) 1 %; Eosinophils # (A) 0.2 k/uL (0-0.7); Eosinophils % (A) 3 %; HCT 42.7 % (39.0-53.0); HGB 13.4 gm/dL (13.0-17.5); Lymphocytes # (A) 1.7 k/uL (1.0-4.8); Lymphocytes % (A) 24 %; MCH 27.8 pg (25.0-35.0); MCHC 31.3 g/dL (31.0-37.0); Mean Platelet Volume 9.2; Monocytes # (A) 0.5 k/uL (0-1.0); Monocytes % (A) 6 %; Neutrophils # (A) 4.7 k/uL (1.3-7.7); Neutrophils % (A) 64 %; Platelet Count 190 k/uL (150-450); RDW 19.5 % (11.5-15.5); WBC 7.4 k/uL (3.8-10.6)
[2025-01-19 01:48] LABS: ALT 28 U/L (4-49); AST 33 U/L (17-59); African American GFR (CKD) >90 (>60 ml/min/1.73 sqM); Albumin 4.1 g/dL (3.5-5.0); Alkaline Phosphatase 100 U/L (38-126); Anion Gap 10 mmol/L; Blood Urea Nitrogen 8 mg/dL (9-20); Calcium 9.2 mg/dL (8.4-10.2); Carbon Dioxide 23 mmol/L (22-30); Chloride 104 mmol/L (98-107); Glucose 138 mg/dL (74-99); Magnesium 1.8 mg/dL (1.6-2.3); Non-African American GFR(CKD) 90 (>60 ml/min/1.73 sqM); Phosphorus 3.6 mg/dL (2.5-4.5); Potassium 4.7 mmol/L (3.5-5.1); Sodium 137 mmol/L (137-145); Total Bilirubin 0.7 mg/dL (0.2-1.3); Total Protein 7.1 g/dL (6.3-8.2)
[2025-01-19 02:25] LABS: MCV 88.8 fL (80.0-100.0)
[2025-01-19] MEDS: traMADol 50 MG TAB PO STA (02:25)
[2025-01-19] MEDS: LIDOCAINE 4% PATCH TOPICAL STA (02:25)
[2025-01-19] MEDS: traMADol 50 MG STARTER PACK 3 TAB BTL PO STA (02:26)
[2025-01-19 02:33] VITALS: BP 116/78; PULSE 89; RESP 18
== END 2025-01-19 02:33 | disposition home or self-care (01) ==
LOC: EC 00:27
DX: S20.212A Contusion of left front wall of thorax, initial encounter (principal); R07.89 Other chest pain; Z88.5 Allergy status to narcotic agent; Z88.6 Allergy status to analgesic agent; W01.0XXA Fall on same level from slipping, tripping and stumbling without subsequent striking against object, initial encounter
CPT/HCPCS: 36415; 93005; 80053; 83735; 84100; 84484; 85025; 71101; 99285; 96374; 96375; 96361; J2405; J1171

== ENCOUNTER 2025-05-04 20:23 | Observation (INO) | payer MEDICARE ==
--- NOTE | 2025-05-04 20:41 | ED ---
General Adult HPI - General Source: family, RN notes reviewed Mode of arrival: wheelchair Limitations: no limitations <Lexi Kim - Last Filed: 05/04/25 20:40> - General Source: family, RN notes reviewed, old records reviewed Mode of arrival: wheelchair Limitations: no limitations - History of Present Illness -: days(s) Radiation: non-radiation Consistency: constant Improves with: none Worsens with: none Associated Symptoms: confusion, loss of appetite, malaise, nausea/vomiting, weakness Treatments Prior to Arrival: none <Ernesto Medina - Last Filed: 05/05/25 00:07> - General Chief complaint: Syncope Stated complaint: Numbness,Headache,Weakness Time Seen by Provider: 05/04/25 20:40 - History of Present Illness Initial comments: Quick note: 74-year-old male presents to the emergency department for weakness and syncopal episodes. Patient notes that he had a syncopal episode yesterday causing him to fall. He did hit his head at this time. He notes that again today he had another syncopal episode but is unsure if he hit his head this time. He is reporting neck discomfort, headache, arm pain. (Lexi Kim) This is a 74-year-old male to the ER for evaluation of recurrent syncope. Patient had a syncopal event yesterday syncopal event again today where he did f all did hit his head complaining of headache neck pain back pain chest pain. Patient has weakness and fatigue per and states she is not feeling unwell she has been concerned about him for the last few days (Ernesto Medina) - Related Data Home Medications Medication Instructions Recorded Confirmed Cholecalciferol [Vitamin D3 (25 50 mcg PO DAILY 09/05/24 03/16/25 Mcg = 1000 Iu)] DULoxetine HCL [Cymbalta] 60 mg PO BID 09/05/24 03/16/25 Eszopiclone [Lunesta] 2 mg PO HS PRN 09/05/24 03/16/25 Pantoprazole Sodium [Protonix] 20 mg PO DAILY 09/05/24 03/16/25 Pramipexole [Mirapex] 1 mg PO BID 09/05/24 03/16/25 Prednisolone Acetate/Pf 1 drop BOTH EYES BID 09/05/24 03/16/25 [Prednisolone Acet 1% Eye Drop] Solifenacin Succinate [Vesicare] 10 mg PO DAILY 09/05/24 03/16/25 traZODone HCL [Desyrel] 50 mg PO HS PRN 09/05/24 03/16/25 Semaglutide [Ozempic] 0.5 mg SQ MCCOY 10/24/24 03/16/25 Previous Rx's Medication Instructions Recorded Pregabalin [Lyrica] 150 mg PO BID 7 Days #14 cap 10/10/24 Losartan [Cozaar] 25 mg PO HS 90 Days #90 tab 10/27/24 Allergies Allergy/AdvReac Type Severity Reaction Status Date / Time NSAIDS (Non-Steroidal Allergy Unknown Verified 03/16/25 10:15 Anti-Inflamma morphine AdvReac Itching Verified 03/16/25 10:15 Review of Systems ROS Other: All systems not noted in ROS Statement are negative. <Lexi Kim - Last Filed: 05/04/25 20:40> ROS Other: All systems not noted in ROS Statement are negative. <Ernesto Medina - Last Filed: 05/05/25 00:07> ROS Statement: Those systems with pertinent positive or pertinent negative responses have been documented in the HPI. Past Medical History Past Medical History: Diabetes Mellitus, Prostate Disorder, Syncope Additional Past Medical History / Comment(s): Long Covid Syndrome History of Any Multi-Drug Resistant Organisms: None Reported Past Surgical History: Bariatric Surgery, Bowel Resection, Joint Replacement, Orthopedic Surgery, Pacemaker Additional Past Surgical History / Comment(s): bariatric sx 1998. 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 bowel surgery twisted bowel post op bariatric sx. Past Anesthesia/Blood Transfusion Reactions: No Reported Reaction Type of Cardiac Device: Permanent Pacemaker Device Placement Date:: 2005 Past Psychological History: Anxiety, Depression Smoking Status: Never smoker - Past Family History Father Family Medical History: Unable to Obtain <Lexi Kim - Last Filed: 05/04/25 20:40> General Exam <Lexi Kim - Last Filed: 05/04/25 20:40> General appearance: alert, in no apparent distress Head exam: Present: atraumatic, normocephalic, normal inspection Eye exam: Present: normal appearance, PERRL, EOMI. Absent: scleral icterus, conjunctival injection, periorbital swelling ENT exam: Present: normal exam, mucous membranes moist Neck exam: Present: normal inspection. Absent: tenderness, meningismus, lymphadenopathy Respiratory exam: Present: normal lung sounds bilaterally. Absent: respiratory distress, wheezes, rales, rhonchi, stridor Cardiovascular Exam: Present: regular rate, normal rhythm, normal heart sounds. Absent: systolic murmur, diastolic murmur, rubs, gallop, clicks GI/Abdominal exam: Present: soft, normal bowel sounds. Absent: distended, tenderness, guarding, rebound, rigid Extremities exam: Present: normal inspection, full ROM, normal capillary refill. Absent: tenderness, pedal edema, joint swelling, calf tenderness Back exam: Present: normal inspection Neurological exam: Present: alert, oriented X3, CN II-XII intact Psychiatric exam: Present: normal affect, normal mood Skin exam: Present: warm, dry, intact, normal color. Absent: rash <Ernesto Medina - Last Filed: 05/05/25 00:07> - General Exam Comments Initial Comments: Visual Physical Exam Vital signs reviewed General: Well-appearing, nontoxic, no acute distress. Head: Normocephalic, atraumatic Eyes: PERRLA, EOMI ENT: Airway patent Chest: Nonlabored breathing Skin: No visual rash, normal skin tone Neuro: Alert and oriented 3 Musculoskeletal: No gross abnormalities (GrahamkaLexi) Course <Ernesto Medina - Last Filed: 05/05/25 00:07> Vital Signs 05/04/25 20:28 Temperature 98.4 F Pulse Rate 82 Respiratory 18 Rate Blood Pressure 136/78 O2 Sat by Pulse 98 Oximetry - Reevaluation(s) Reevaluation #1: 05/05/25 00:06 Medical records reviewed (Ernesto Medina) Reevaluation #2: 05/05/25 00:06 No recurrent syncope here in the ER but patient is lethargic and somnolent (Ernesto Medina) Reevaluation #3: 05/05/25 00:06 Patient informed of results questions answered (Ernesto Medina) Reevaluation #4: Was pt. sent in by a medical professional or institution ([facility], [facility], urgent care, hospital, or shelter...) When possible be specific @ -no Did you speak to anyone other than the patient for history (EMS, parent, family, police, friend...)? What history was obtained from this source @ -no Did you review nursing and triage notes (agree or disagree)? Why? @ -agree Are old charts reviewed (outside hosp., previous admission, EMS record, old EKG, old radiological studies, urgent care reports/EKG's, shelter records)? Report findings @ -yes Differential Diagnosis (chest pain, altered mental status, abdominal pain women, abdominal pain men, vaginal bleeding, weakness, fever, dyspnea, syncope, headache, dizziness, GI bleed, back pain, seizure, CVA, palpatations, mental health, musculoskeletal)? @ -prior EKG interpreted by me (3pts min.). @ -yes X-rays interpreted by me (1pt min.). @ -yes negative for acute disease CT interpreted by me (1pt min.). @ -no U/S interpreted by me (1pt. min.). @ -no What testing was considered but not performed or refused? (CT, X-rays, U/S, labs)? Why? @ -none What meds were considered but not given or refused? Why? @ -none Did you discuss the management of the patient with other professionals (professionals i.e. [facility], [facility], lab, RT, psych nurse, social security assessor, continuous towel roller, teacher, community development officer, showcase maker)? Give summary @ -no Was smoking cessation discussed for >3mins.? @ -no Was critical care preformed (if so, how long)? @ -no Were there social determinants of health that impacted care today? How? (Homelessness, low income, unemployed, alcoholism, drug addiction, transportation, low edu. Level, literacy, decrease access to med. care, long-term, rehab)? @ -none Was there de-escalation of care discussed even if they declined (Discuss DNR or withdrawal of care, Hospice)? DNR status @ -no What co-morbidities impacted this encounter? (DM, HTN, Smoking, COPD, CAD, Cancer, CVA, ARF, Chemo, Hep., AIDS, mental health diagnosis, sleep apnea, morbid obesity)? @ -none Was patient admitted / discharged? Hospital course, mention meds given and route, prescriptions, significant lab abnormalities, going to OR and other pertinent info. @ - Undiagnosed new problem with uncertain prognosis? @ -no Drug Therapy requiring intensive monitoring for toxicity (Heparin, Nitro, Insulin, Cardizem)? @ -no Were any procedures done? @ -no Diagnosis/symptom? @ - Acute, or Chronic, or Acute on Chronic? @ -Acute Uncomplicated (without systemic symptoms) or Complicated (systemic symptoms)? @ -Complicated Side effects of treatment? @ -no Exacerbation, Progression, or Severe Exacerbation? @ -exacerbation Poses a threat to life or bodily function? How? (Chest pain, [place], [place], pneumonia, PE, COPD, DKA, ARF, appy, cholecystitis, CVA, Diverticulitis, Homicidal, Suicidal, threat to staff... and all critical care pts) @ -yes (Ernesto Medina) Reevaluation #5: Differential Syncope: Valvular disease, hypertrophic cardiomyopathy, pulmonary embolism, tamponade, tachycardia, bradycardia, [place], hypovolemia, hemorrhage, dissection, anemia, intracranial hemorrhage, seizure, hypoglycemia, carbon monoxide poisoning, this is not meant to be an all-inclusive list. Differential Weakness: Hypoglycemia, shock, sepsis, hyponatremia, anemia, infection, [place], ETOH, adverse medicine reaction, overdose, stroke, this is not meant to be an all-inclusive list. (Ernesto Medina) - Consultations Consultation #1: Spoke with [facility] agrees to admit this patient (Ernesto Medina) EKG Findings - EKG Comments: EKG Findings:: EKG is sinus 85 NC 160 QRS 113 QTc 398 - EKG Results: EKG: interpreted by ERMD <Ernesto Medina - Last Filed: 05/05/25 00:07> Medical Decision Making <Lexi Kim - Last Filed: 05/04/25 20:40> - Lab Data Result diagrams: 05/04/25 20:42 05/04/25 20:42 - EKG Data -: EKG Interpreted by Ar - Radiology Data Radiology results: report reviewed (CT brain C-spine chest x-ray is negative for acute disease), image reviewed <Ernesto Medina - Last Filed: 05/05/25 00:07> - Medical Decision Making Quick note preformed and electronically signed by Lexi Kim PA-C (Lexi Kim) 74 male with recurrent syncopal events. No traumatic injury noted from syncopal event here in the ER patient admitted for cardiac observation evaluation of recurrent syncope rehydration PT OT (Ernesto Medina) - Lab Data Lab Results 05/04/25 05/04/25 05/04/25 Range/Units 20:42 20:42 20:42 WBC 6.75 (4.50-10.00) 10*3/uL RBC 5.24 (4.40-5.60) 10*6/uL Hgb 15.7 (13.0-17.0) g/dL Hct 47.2 (39.6-50.0) % MCV 90.1 (80.0-97.0) fL MCH 30.0 (27.0-32.0) pg MCHC 33.3 (32.0-37.0) g/dL Plt Count 166 (140-440) 10*3/uL MPV 10.8 (9.5-12.2) fL Immature Gran % (Auto) 0.4 % Neutrophils % 62.7 % Lymphocytes % 26.1 % Monocytes % 7.7 % Eosinophils % 2.2 % Basophils % 0.9 % Immature Gran # 0.03 (0.00-0.04) 10*3/uL Neutrophils # 4.23 (1.80-7.70) 10*3/uL Lymphocytes # 1.76 (0.90-5.00) 10*3/uL Monocytes # 0.52 (0.20-1.00) 10*3/uL Eosinophils # 0.15 (0.04-0.35) 10*3/uL Basophils # 0.06 (0.00-0.10) 10*3/uL PT 11.7 (10.0-12.5) sec INR 1.1 (<1.2) APTT 23.6 (22.0-30.0) sec Sodium 135 L (137-145) mmol/L Potassium 4.8 (3.5-5.1) mmol/L Chloride 98 (98-107) mmol/L Carbon Dioxide 24 (22-30) mmol/L Anion Gap 13 mmol/L BUN 9 (9-20) mg/dL Creatinine 0.76 (0.66-1.25) mg/dL Est GFR (CKD-EPI)AfAm >90 (>60 ml/min/1.73 sqM) Est GFR (CKD-EPI)NonAf >90 (>60 ml/min/1.73 sqM) Glucose 260 H (74-99) mg/dL Calcium 9.6 (8.4-10.2) mg/dL Magnesium 1.7 (1.6-2.3) mg/dL Total Bilirubin 2.0 H (0.2-1.3) mg/dL AST 39 (17-59) U/L ALT 45 (4-49) U/L Alkaline Phosphatase 128 H (38-126) U/L Troponin I (0.000-0.034) ng/mL Total Protein 8.0 (6.3-8.2) g/dL Albumin 4.6 (3.5-5.0) g/dL Urine Color Urine Appearance (Clear) Urine pH (5.0-8.0) Ur Specific Williams (1.001-1.035) Urine Protein (Negative) Urine Glucose (UA) (Negative) Urine Ketones (Negative) Urine Blood (Negative) Urine Nitrite (Negative) Urine Bilirubin (Negative) Urine Urobilinogen (<2.0) mg/dL Ur Leukocyte Esterase (Negative) Urine RBC (0-5) /hpf Urine WBC (0-5) /hpf Urine Bacteria (None) /hpf 05/04/25 05/04/25 Range/Units 20:42 22:44 WBC (4.50-10.00) 10*3/uL RBC (4.40-5.60) 10*6/uL Hgb (13.0-17.0) g/dL Hct (39.6-50.0) % MCV (80.0-97.0) fL MCH (27.0-32.0) pg MCHC (32.0-37.0) g/dL Plt Count (140-440) 10*3/uL MPV (9.5-12.2) fL Immature Gran % (Auto) % Neutrophils % % Lymphocytes % % Monocytes % % Eosinophils % % Basophils % % Immature Gran # (0.00-0.04) 10*3/uL Neutrophils # (1.80-7.70) 10*3/uL Lymphocytes # (0.90-5.00) 10*3/uL Monocytes # (0.20-1.00) 10*3/uL Eosinophils # (0.04-0.35) 10*3/uL Basophils # (0.00-0.10) 10*3/uL PT (10.0-12.5) sec INR (<1.2) APTT (22.0-30.0) sec Sodium (137-145) mmol/L Potassium (3.5-5.1) mmol/L Chloride (98-107) mmol/L Carbon Dioxide (22-30) mmol/L Anion Gap mmol/L BUN (9-20) mg/dL Creatinine (0.66-1.25) mg/dL Est GFR (CKD-EPI)AfAm (>60 ml/min/1.73 sqM) Est GFR (CKD-EPI)NonAf (>60 ml/min/1.73 sqM) Glucose (74-99) mg/dL Calcium (8.4-10.2) mg/dL Magnesium (1.6-2.3) mg/dL Total Bilirubin (0.2-1.3) mg/dL AST (17-59) U/L ALT (4-49) U/L Alkaline Phosphatase (38-126) U/L Troponin I <0.012 (0.000-0.034) ng/mL Total Protein (6.3-8.2) g/dL Albumin (3.5-5.0) g/dL Urine Color Colorless Urine Appearance Clear (Clear) Urine pH 5.5 (5.0-8.0) Ur Specific Williams 1.006 (1.001-1.035) Urine Protein Negative (Negative) Urine Glucose (UA) 3+ H (Negative) Urine Ketones Negative (Negative) Urine Blood Negative (Negative) Urine Nitrite Negative (Negative) Urine Bilirubin Negative (Negative) Urine Urobilinogen <2.0 (<2.0) mg/dL Ur Leukocyte Esterase Small H (Negative) Urine RBC 2 (0-5) /hpf Urine WBC 15 H (0-5) /hpf Urine Bacteria Rare H (None) /hpf Disposition <Lexi Kim - Last Filed: 06/23/25 20:40> Is patient prescribed a controlled substance at d/c from ED?: No Time of Disposition: 23:35 <Ernesto Medina - Last Filed: 05/05/25 00:07> Clinical Impression: Weakness, Fall, Syncope, Dehydration Disposition: ADMITTED IP TO THIS HOSP Condition: Fair
[2025-05-04 21:01] LABS: Basophils # (A) 0.06 10*3/uL (0.00-0.10); Basophils % (A) 0.9 %; Eosinophils # (A) 0.15 10*3/uL (0.04-0.35); Eosinophils % (A) 2.2 %; HCT 47.2 % (39.6-50.0); HGB 15.7 g/dL (13.0-17.0); Lymphocytes # (A) 1.76 10*3/uL (0.90-5.00); Lymphocytes % (A) 26.1 %; MCHC 33.3 g/dL (32.0-37.0); MCV 90.1 fL (80.0-97.0); Mean Platelet Volume 10.8 fL (9.5-12.2); Monocytes # (A) 0.52 10*3/uL (0.20-1.00); Monocytes % (A) 7.7 %; Neutrophils # (A) 4.23 10*3/uL (1.80-7.70); Neutrophils % (A) 62.7 %; Platelet Count 166 10*3/uL (140-440); RBC 5.24 10*6/uL (4.40-5.60); RDW 14.1 % (11.5-14.5); WBC 6.75 10*3/uL (4.50-10.00)
[2025-05-04 21:10] LABS: INR 1.1 (<1.2); Partial Thromboplastin Time 23.6 sec (22.0-30.0); Prothrombin Time 11.7 sec (10.0-12.5)
[2025-05-04 21:11] LABS: ALT 45 U/L (4-49); AST 39 U/L (17-59); African American GFR (CKD) >90 (>60 ml/min/1.73 sqM); Albumin 4.6 g/dL (3.5-5.0); Alkaline Phosphatase 128 U/L (38-126); Anion Gap 13 mmol/L; Blood Urea Nitrogen 9 mg/dL (9-20); Calcium 9.6 mg/dL (8.4-10.2); Carbon Dioxide 24 mmol/L (22-30); Chloride 98 mmol/L (98-107); Glucose 260 mg/dL (74-99); Magnesium 1.7 mg/dL (1.6-2.3); Non-African American GFR(CKD) >90 (>60 ml/min/1.73 sqM); Potassium 4.8 mmol/L (3.5-5.1); Sodium 135 mmol/L (137-145)
--- NOTE | 2025-05-04 21:34 | CT ---
EXAMINATION TYPE: CT brain cspine wo con DATE OF EXAM: 05/04/2025 9:20 PM COMPARISON: 10/25/2024 CLINICAL INDICATION: Male, 74 years old with history of syncope, fall, fall, pain TECHNIQUE: CT of the cervical spine is performed in the axial plane at 2 mm thick sections. Reconstr ucted images in the coronal, and sagittal plane are reviewed on the computer. Contrast used: mL of , (none if empty) Oral contrast used: (none if empty) CT DLP: 1298.3 mGycm, Automated exposure control for dose reduction was used. FINDINGS: No acute fractures are evident. Vertebral body alignment is normal. Disc heights are preserved. Endplate changes with calcification are present at the C5-6 level. There is mild anterior thecal sac compression. Milder endplate changes are present C6-7. Vertebral body heights are preserved. No spinal canal stenosis is evident No neural foraminal stenosis is evident. IMPRESSION: 1. No acute posttraumatic osseous changes cervical spine. 2. Degenerative disc changes greatest at C5-6 C6-7. EXAMINATION TYPE: CT brain cspine wo con DATE OF EXAM: 05/04/2025 9:20 PM COMPARISON: None. CLINICAL INDICATION: Male, 74 years old with history of syncope, fall, fall TECHNIQUE: CT of the brain is performed utilizing 3 mm thick sections through the posterior fossa and 3 mm thick sections through the remaining calvarium. Study is performed within 24 hours of arrival to the hospital. Contrast used: mL of , (none if empty) CT DLP: 1298.3 mGycm, Automated exposure control for dose reduction was used. FINDINGS: No abnormal hyperdensity is present to suggest an acute intracranial hemorrhage. No mass lesion is evident. No acute infarcts are evident. Ventricles and sulci are appropriate for the patient age. Paranasal sinuses and mastoid air cells within the [id number] are clear. IMPRESSION: 1. No acute intracranial process. Follow up MRI can be performed as clinically indicated. 2. No acute posttraumatic changes. [facility], , 05/04/2025 9:31 PM
--- NOTE | 2025-05-04 21:35 | XR ---
EXAMINATION TYPE: XR chest 2V DATE OF EXAM: 05/04/2025 9:30 PM COMPARISON: 01/19/2025 CLINICAL INDICATION: Male, 74 years old with history of syncope, TECHNIQUE: XR chest 2V view(s) obtained. FINDINGS: The heart size is normal. Pacemaker overlies left chest. The pulmonary vasculature is normal. The lungs are clear. IMPRESSION: 1. No acute pulmonary process. [facility], , 05/04/2025 9:32 PM
[2025-05-04 23:07] LABS: Appearance,Urine Clear (Clear); Bacteria,Urine Rare /hpf; Bilirubin,Urine Negative (Negative); Blood,Urine Negative (Negative); Color,Urine Colorless; Glucose,Urine (UA) 3+ (Negative); Ketones,Urine Negative (Negative); Leukocyte Esterase,Urine Small (Negative); Nitrite,Urine Negative (Negative); PH, Urine 5.5 (5.0-8.0); Protein,Urine Negative (Negative); RBC,Urine 2 /hpf (0-5); Specific Gravity,Urine 1.006 (1.001-1.035); Urobilinogen,Urine <2.0 mg/dL (<2.0); WBC,Urine 15 /hpf (0-5)
[2025-05-04] MEDS: HYDROmorphone 1 MG/ML 1 ML SYRINGE IVP STA (23:18)
[2025-05-04] MEDS: SODIUM CHLORIDE 0.9% 1,000 ML IV ONE (23:19)
[2025-05-04] MEDS ORDERED: NALOXONE 0.4 MG/ML 1 ML VIAL IV PRN (23:37)
[2025-05-05] MEDS: diphenhydrAMINE 50 MG/ML 1 ML VIAL IVP STA (00:05)
[2025-05-05] MEDS: SODIUM CHLORIDE 0.9% 500 ML 500 ML IV ONE (00:08)
[2025-05-05] MEDS: DEXTROSE 5%-0.45% NACL 1,000 ML IV ONE (00:46)
[2025-05-05] MEDS: HYDROmorphone 1 MG/ML 1 ML SYRINGE IVP PRN (02:30)
[2025-05-05 03:06] LABS: Basophils # (A) 0.08 10*3/uL (0.00-0.10); Basophils % (A) 1.3 %; Eosinophils # (A) 0.17 10*3/uL (0.04-0.35); Eosinophils % (A) 2.7 %; HCT 41.9 % (39.6-50.0); Lymphocytes # (A) 1.84 10*3/uL (0.90-5.00); Lymphocytes % (A) 28.8 %; MCH 30.4 pg (27.0-32.0); MCHC 33.4 g/dL (32.0-37.0); MCV 90.9 fL (80.0-97.0); Mean Platelet Volume 10.9 fL (9.5-12.2); Monocytes # (A) 0.75 10*3/uL (0.20-1.00); Monocytes % (A) 11.8 %; Neutrophils # (A) 3.52 10*3/uL (1.80-7.70); Neutrophils % (A) 55.1 %; Platelet Count 155 10*3/uL (140-440); RBC 4.61 10*6/uL (4.40-5.60); RDW 14.2 % (11.5-14.5); WBC 6.38 10*3/uL (4.50-10.00)
[2025-05-05 03:16] LABS: ALT 41 U/L (4-49); AST 36 U/L (17-59); African American GFR (CKD) >90 (>60 ml/min/1.73 sqM); Albumin 3.8 g/dL (3.5-5.0); Alkaline Phosphatase 105 U/L (38-126); Anion Gap 7 mmol/L; Blood Urea Nitrogen 12 mg/dL (9-20); Calcium 8.9 mg/dL (8.4-10.2); Carbon Dioxide 27 mmol/L (22-30); Chloride 103 mmol/L (98-107); Glucose 105 mg/dL (74-99); Non-African American GFR(CKD) >90 (>60 ml/min/1.73 sqM); Potassium 4.3 mmol/L (3.5-5.1); Sodium 137 mmol/L (137-145); Total Bilirubin 1.6 mg/dL (0.2-1.3); Total Protein 6.8 g/dL (6.3-8.2)
[2025-05-05] MEDS: ONDANSETRON 4 MG/2 ML VIAL IVP PRN (07:51)
[2025-05-05] MEDS ORDERED: HYDROmorphone 0.5 MG/0.5 ML SYRINGE IVP PRN (09:57)
[2025-05-05] MEDS ORDERED: DEXTROSE 50% SYRINGE 50 ML IVP PRN ×2 (09:58)
--- NOTE | 2025-05-05 10:49 | P.CRDCN ---
History of Present Illness History of present illness: HISTORY OF PRESENTING ILLNESS This is a pleasant 74-year-old male past medical history significant for recurrent syncope status post pacemaker implantation, hypertension, diabetes mellitus, unprovoked DVT with factor V Leiden, chronic pain and bariatric surgery. He follows in the office with Dr. Alas. We have been asked to see in consultation for syncope. He endorses having 2 syncopal episodes related to what he describes as weakness in his legs and then he passes out. EKG reveals sinus mechanism heart rate of 85. Chest x-ray is negative for any acute cardiopulmonary process and CT of the head and cervical spine is unremarkable. Laboratory data reviewed, CBC unremarkable, sodium 137, potassium 4.3, creatinine 0.65, magnesium 1.7, troponin negative x 3. Most recent echocardiogram obtained in the office January 06, 2025 reveals preserved LV systolic function with ejection fraction 55% with moderate tricuspid regurgitation RVSP of 34 and mild to moderate mitral regurgitation. Most recent stress test performed in the office November 26, 2024 reveals ejection fraction of 58% and no reversible ischemia. We asked the nurse to check for orthostatic changes, supine blood pressure 152/85 and standing 120/80. The office note from Dr. George indicates he should be taking losartan 25 mg daily along with Pradaxa 150 mg twice daily. These are not listed on his med list and the nurse will confirm whether or not he is taking. REVIEW OF SYSTEMS At the time of my exam: CONSTITUTIONAL: Denies fever or chills. Complains of weakness. CARDIOVASCULAR: Denies chest pain, shortness of breath, orthopnea, PND or palpitations. RESPIRATORY: Denies cough. GASTROINTESTINAL: Denies abdominal pain, diarrhea, constipation, nausea or vomiting. MUSCULOSKELETAL: Denies myalgias. NEUROLOGIC: Denies numbness, tingling, headache or weakness. ENDOCRINE: Denies fatigue, weight change, polydipsia or polyurina. GENITOURINARY: Denies burning, hematuria or urgency with micturation. HEMATOLOGIC: Denies history of anemia or bleeding. PHYSICAL EXAMINATION CONSTITUTIONAL: No apparent distress. HEENT: Head is normocephalic. Pupils are equal, round. Sclerae anicteric. Mucous membranes of the mouth are moist. No JVD. No carotid bruit. CHEST EXAMINATION: Lungs are clear to auscultation. No chest wall tenderness is noted on palpation or with deep breathing. HEART EXAMINATION: Regular rate and rhythm. S1, S2 heard. No murmurs, gallops or rub. ABDOMEN: Soft, nontender. EXTREMITIES: 2+ peripheral pulses, no lower extremity edema and no calf tenderness. NEUROLOGIC EXAMINATION: Patient is awake, alert and oriented x3. ASSESSMENT Syncope with orthostatic changes Diabetes mellitus Hypertension Pacemaker implantation secondary to recurrent syncope placed in [place] PLAN An acute coronary event has been ruled out. Check d-dimer. He indicates he stopped pradaxa due to cost and PCP discontinued losartan. Increase activity and ambulation as tolerated. Although no hypotension there was a 30 point drop in systolic BP with standing, start midodrine 2.5 mg TID. No cardiac cause for syncope. Stop ozempic, not a good choice in his situation given apparent muscle wasting appearance, stable weight. Consider first line agents for diabetes management. Thank you kindly for this consultation. Stable for discharge, follow up with Dr. Alas 2 weeks. Nurse Practitioner note has been reviewed, I agree with a documented findings and plan of care. Patient was seen and examined. Past Medical History Past Medical History: Diabetes Mellitus, Prostate Disorder, Syncope Additional Past Medical History / Comment(s): Long Covid Syndrome History of Any Multi-Drug Resistant Organisms: None Reported Past Surgical History: Bariatric Surgery, Bowel Resection, Joint Replacement, Orthopedic Surgery, Pacemaker Additional Past Surgical History / Comment(s): bariatric sx 1998. 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 bowel surgery twisted bowel post op bariatric sx. Past Anesthesia/Blood Transfusion Reactions: No Reported Reaction Type of Cardiac Device: Permanent Pacemaker Device Placement Date:: 2005 Past Psychological History: Anxiety, Depression Smoking Status: Never smoker Past Alcohol Use History: None Reported Past Drug Use History: None Reported - Past Family History Father Family Medical History: Unable to Obtain Medications and Allergies Home Medications Medication Instructions Recorded Confirmed Type Cholecalciferol [Vitamin D3 (25 50 mcg PO DAILY 09/05/24 05/05/25 History Mcg = 1000 Iu)] DULoxetine HCL [Cymbalta] 60 mg PO BID 09/05/24 05/05/25 History Eszopiclone [Lunesta] 2 mg PO HS 09/05/24 05/05/25 History Pantoprazole Sodium [Protonix] 20 mg PO DAILY 09/05/24 05/05/25 History Pramipexole [Mirapex] 1 mg PO BID 09/05/24 05/05/25 History Prednisolone Acetate/Pf 1 drop BOTH EYES BID 09/05/24 05/05/25 History [Prednisolone Acet 1% Eye Drop] Solifenacin Succinate [Vesicare] 10 mg PO DAILY 09/05/24 05/05/25 History traZODone HCL [Desyrel] 50 mg PO HS PRN 09/05/24 05/05/25 History Pregabalin [Lyrica] 150 mg PO BID 7 Days #14 cap 10/10/24 05/05/25 Rx Semaglutide [Ozempic] 0.5 mg SQ Q14D 10/24/24 05/05/25 History Celecoxib [CeleBREX] 200 mg PO DAILY PRN 05/05/25 05/05/25 History Propylene Glycol [Systane Complete] 1 drop BOTH EYES QID PRN 05/05/25 05/05/25 History clonazePAM [KlonoPIN] 0.5 mg PO DAILY PRN 05/05/25 05/05/25 History cycloSPORINE 0.05% OPHTH SOLN 1 applicator BOTH EYES Q12H 05/05/25 05/05/25 History [Restasis] Allergies Allergy/AdvReac Type Severity Reaction Status Date / Time NSAIDS (Non-Steroidal Allergy Unknown Verified 05/05/25 10:19 Anti-Inflamma morphine AdvReac Itching Verified 05/05/25 10:19 Physical Exam Vitals: Vital Signs Temp Pulse Pulse Pulse Pulse Resp BP 05/05/25 09:07 98 82 05/05/25 07:00 98.4 F 75 18 05/05/25 01:55 97.7 F 75 18 05/05/25 01:37 79 16 131/92 05/04/25 20:28 98.4 F 82 18 136/78 BP BP BP BP Pulse Ox 05/05/25 09:07 120/80 152/85 05/05/25 07:00 135/64 92 L 05/05/25 01:55 163/83 98 05/05/25 01:37 93 L 05/04/25 20:28 98 Intake and Output 05/04/25 05/05/25 05/05/25 22:59 06:59 14:59 Output Total 300 Balance -300 Output: Urine 300 Other: Voiding Method Diaper Weight 68.039 kg 68.039 kg Results 05/05/25 02:46 05/05/25 02:46 Cardiac Enzymes 05/04/25 05/04/25 05/05/25 Range/Units 20:42 20:42 02:46 AST 39 (17-59) U/L Troponin I <0.012 <0.012 (0.000-0.034) ng/mL 05/05/25 05/05/25 Range/Units 02:46 08:33 AST 36 (17-59) U/L Troponin I <0.012 (0.000-0.034) ng/mL Coagulation 05/04/25 Range/Units 20:42 PT 11.7 (10.0-12.5) sec APTT 23.6 (22.0-30.0) sec CBC 05/04/25 05/05/25 Range/Units 20:42 02:46 WBC 6.75 6.38 (4.50-10.00) 10*3/uL RBC 5.24 4.61 (4.40-5.60) 10*6/uL Hgb 15.7 14.0 (13.0-17.0) g/dL Hct 47.2 41.9 (39.6-50.0) % Plt Count 166 155 (140-440) 10*3/uL Comprehensive Metabolic Panel 05/04/25 05/05/25 Range/Units 20:42 02:46 Sodium 135 L 137 (137-145) mmol/L Potassium 4.8 4.3 (3.5-5.1) mmol/L Chloride 98 103 (98-107) mmol/L Carbon Dioxide 24 27 (22-30) mmol/L BUN 9 12 (9-20) mg/dL Creatinine 0.76 0.65 L (0.66-1.25) mg/dL Glucose 260 H 105 H (74-99) mg/dL Calcium 9.6 8.9 (8.4-10.2) mg/dL AST 39 36 (17-59) U/L ALT 45 41 (4-49) U/L Alkaline Phosphatase 128 H 105 (38-126) U/L Total Protein 8.0 6.8 (6.3-8.2) g/dL Albumin 4.6 3.8 (3.5-5.0) g/dL Current Medications Generic Name Dose Route Start Last Admin Trade Name Freq PRN Reason Stop Dose Admin Acetaminophen 650 mg 05/05/25 09:54 Acetaminophen Tab 325 Mg Tab PO Q6HR PRN Fever and/ or Pain Dextrose/Water 25 ml 05/05/25 09:58 Dextrose 50% Syringe 50 Ml IVP PER PROTOCOL PRN Hypoglycemia Protocol Dextrose/Water 50 ml 05/05/25 09:58 Dextrose 50% Syringe 50 Ml IVP PER PROTOCOL PRN Hypoglycemia Protocol Hydromorphone HCl 0.25 mg 05/05/25 09:57 Hydromorphone 0.5 Mg/0.5 Ml Syringe IVP Q6H PRN Severe Pain (Scale 7 to 10) Dextrose/Sodium Chloride 1,000 mls @ 75 mls/hr 05/04/25 23:37 05/05/25 00:46 Dextrose 5%-1/2ns Iv Soln IV 05/05/25 12:56 75 mls/hr .[id number] ONE Administration Insulin Human Lispro 0 unit 05/05/25 12:30 Insulin Lispro (Humalog) 100 Unit/Ml 10 Ml Vl SQ ACHS SALLY Protocol Naloxone HCl 0.2 mg 05/04/25 23:37 Naloxone 0.4 Mg/Ml 1 Ml Vial IV Q2M PRN Opioid Reversal Ondansetron HCl 4 mg 05/04/25 23:37 05/05/25 07:51 Ondansetron 4 Mg/2 Ml Vial IVP 4 mg Q8HR PRN Administration Nausea And Vomiting Pantoprazole Sodium 40 mg 05/05/25 10:00 Pantoprazole 40 Mg Tablet PO [id number] Intake and Output 05/04/25 05/05/25 05/05/25 22:59 06:59 14:59 Output Total 300 Balance -300 Output: Urine 300 Other: Voiding Method Diaper Weight 68.039 kg 68.039 kg 05/05/25 02:46 05/05/25 02:46
[2025-05-05 12:00] LABS: Glucose,Whole Blood 138 mg/dL (70-110)
[2025-05-05] MEDS ORDERED: MIDODRINE 5 MG TAB PO SCH (12:30)
[2025-05-05] MEDS: INSULIN LISPRO (HumaLOG) 100 UNIT/ML 10 mL VL SQ SCH (12:30)
[2025-05-05] MEDS: PANTOPRAZOLE 40 MG TABLET PO SCH (12:48)
[2025-05-05] MEDS: ACETAMINOPHEN TAB 325 MG TAB PO PRN (12:48)
--- NOTE | 2025-05-05 13:58 | CT ---
EXAMINATION TYPE: CT angio chest DATE OF EXAM: 05/05/2025 12:55 PM COMPARISON: 12/10/2024 CLINICAL INDICATION: Male, 74 years old with history of elevated d-dimer, ELEVATED D-DIMER, SYNCOPE, WEAKNESS, TECHNIQUE: CT of the chest is performed on a spiral scan at 2 mm thick sections. Study is performed with intravenous contrast timed for evaluation for pulmonary embolism. This will limit additional po rtions of the evaluation. 10mm MIP images reconstructed by the technologist are reviewed on the comp uter in the coronal and sagittal planes. Contrast used:100 ml mL of Isovue 370 with IV Contrast, (none if empty) Oral contrast used: (none if empty) CT DLP: 290.40 mGycm, Automated exposure control for dose reduction was used. FINDINGS: No persistent filling defects are evident to suggest an acute pulmonary embolism. No mediastinal or hilar adenopathy enlarged by CT criteria is evident. The ascending aorta diameter at the level of the main pulmonary artery is 3.1 cm. The main pulmonary artery diameter at the bifurcation is 2.2 cm. Lung windows are clear. Mild coronary artery calcifications present. Limited CT sections were through the upper abdomen. Upper abdomen appears unremarkable. IMPRESSION: 1. No acute pulmonary embolism. 2. No acute pulmonary process. [facility], , 05/05/2025 1:56 PM
[2025-05-05 14:38] VITALS: BP 161/83; PULSE 64; RESP 17; TEMP 98
== END 2025-05-05 17:12 | disposition home or self-care (01) ==
LOC: EC 20:23 → 6NMEDSUR 23:39
PROVIDERS: ADMIT Hospitalist; ATTEND Hospitalist
DX: R55 Syncope and collapse (principal); R53.1 Weakness; E86.0 Dehydration; E11.9 Type 2 diabetes mellitus without complications; F41.9 Anxiety disorder, unspecified; F32.A Depression, unspecified; I10 Essential (primary) hypertension; G89.29 Other chronic pain; Z86.718 Personal history of other venous thrombosis and embolism; Z95.0 Presence of cardiac pacemaker; Z79.899 Other long term (current) drug therapy; Z88.5 Allergy status to narcotic agent; Z88.6 Allergy status to analgesic agent
CPT/HCPCS: 96376; 96375 ×2; 96374; 99285; 36415; 93005; 97162; 85379; 80053 ×2; 83735; 84484 ×2; 85025 ×2; 85610; 85730; 81001; 87086; 71046; 72125; 70450; 71275; G0378 ×2; J1200; J2405; J1171 ×2; Q9967